=== PATIENT | male | born 1935 | race Caucasian/White ===

== ENCOUNTER 2016-03-25 14:25 | Emergency (ER) | payer MEDICARE, OTHER ==
[~2016-03-25] VITALS: Ht 170.2 cm; Wt 75.0 kg
[~2016-03-25 14:25] MED LIST: ADV25050 INHALATION; AMIO200T2 PO; BUDE6HFA INHALATION; CARV3.12 PO; FAMO20TA18 PO; FOLI-49 PO; FURO20TA PO; LACT10SO5 PO; LAMI150T23 PO; LANT3I SC; LEVO25TA53 PO; LUBI8CAP4 PO; SPIR100T31 PO; TAMS0.4C2 PO
[2016-03-25 14:32] VITALS: Ht 170.2 cm; Wt 75.0 kg
[2016-03-25] MEDS ORDERED: IPRATROPIUM (NEB) 0.5 MG/2.5 ML AMP NEB STA (15:34)
[2016-03-25] MEDS ORDERED: ALBUTEROL 0.5% (NEB) 2.5 MG/0.5 ML AMP NEB STA (15:34)
[2016-03-25 16:05] LABS: BASOPHILS % 0.9 % (0.0-2.0); EOSINOPHILS # 0.3 10^3/ul (0.0-0.5); EOSINOPHILS % 7.5 % (0.0-7.0); HEMATOCRIT 27.7 % (42.0-52.0); HEMOGLOBIN 9.6 g/dl (14.0-18.0); LYMPHOCYTES # 1.5 10^3/ul (0.8-2.9); LYMPHOCYTES % 41.8 % (15.0-51.0); MEAN CORPUSCULAR HEMOGLOBIN 36.9 pg (29.0-33.0); MEAN CORPUSCULAR HGB CONC 34.6 g/dl (32.0-37.0); MEAN CORPUSCULAR VOLUME 106.9 fl (82.0-101.0); MEAN PLATELET VOLUME 8.8 fl (7.4-10.4); MONOCYTE # 0.4 10^3/ul (0.3-0.9); MONOCYTES % 11.6 % (0.0-11.0); NEUTROPHIL # 1.3 10^3/ul (1.6-7.5); NEUTROPHILS % 38.2 % (39.0-77.0); PLATELET COUNT 68 10^3/UL (140-440); RED BLOOD COUNT 2.59 10^6/ul (4.70-6.10); RED CELL DISTRIBUTION WIDTH 16.8 % (11.5-14.5); UNCORRECTED WBC 3.5 10^3/ul (4.8-10.8); WHITE BLOOD COUNT 3.5 10^3/ul (4.8-10.8)
[2016-03-25 16:07] LABS: CONDITION 1; LH ANALYZER COMMENTS 1
[2016-03-25] MEDS ORDERED: LYRI100 PO (16:07)
[2016-03-25] MEDS ORDERED: HYDR-906 PO ×2 (16:09→16:11)
[2016-03-25] MEDS ORDERED: OXYC-279 PO (16:10)
[2016-03-25 16:14] LABS: INR 1.77; PROTIME 20.8 Sec (12.2-14.2); PT RATIO 1.6
[2016-03-25 16:15] LABS: PARTIAL THROMBOPLASTIN TIME 40.3 Sec (25.0-35.0)
--- NOTE | 2016-03-25 16:28 | ERD ---
ER Documentation Chief Complaint Date/Time DATE: 03/25/16 TIME: 16:21 Chief Complaint ABD DISTENTION WITH SOB ABD FLUID RETENTION HPI This is a 80-year-old male with hx of atrial fibrillation, Hep B, cirrhosis with ascites, CKD, GERD, type II DM, hypothyroidism who presents to the emergency room by a family member for abdominal distention. The patient was admitted to the hospital on February 12, 2016, roughly a month and a half ago which was his last paracentesis. He had been admitted at that time for hepatic encephalopathy. The patient today states he has had no changes in his mental status, denies a headache and he also denies abdominal pain. He just states that it is difficult for him to breathe due to the abdominal distention. His ascites is due to hepatitis B. He had no fevers no shaking or chills. He denies any hemoptysis hematemesis or melanotic stools. The patient indicates he is experiencing mild shortness of breath and dyspnea which he states as a result of his abdominal distention as this is similar in nature to his previous episodes of ascites that requires a paracentesis. He denies any recent travel or prolonged immobilization and he has no swelling of his lower extremities ROS All systems reviewed and are negative except as per history of present illness. Medications Home Meds Reported Medications Hydrocodone/Acetaminophen ([place] 5-325 Tablet) 1 Each Tablet, 1 EACH PO DAILY Y for PRN, TAB 03/25/16 Pregabalin* (Lyrica*) 100 Mg Capsule, 100 MG PO TID, CAP 03/25/16 Insulin Glargine* (Lantus*) 100 Unit/Ml Soln, 0 SC QHS, #1 VIAL SLIDING SCALE 02/12/16 Lubiprostone* (Amitiza*) 8 Mcg Capsule, 8 MCG PO BID, #60 CAP 02/12/16 Furosemide* (Lasix*) 20 Mg Tablet, 20 MG PO DAILY, TAB 02/12/16 Levothyroxine Sodium* (Levothyroxine Sodium*) 25 Mcg Tablet, 25 MCG PO BEFORE BREAKFAST, #30 TAB 07/21/15 Tamsulosin Hcl* (Tamsulosin Hcl*) 0.4 Mg Cap.er.24h, 0.4 MG PO HS, CAP 07/21/15 Famotidine* (Famotidine*) 20 Mg Tablet, 20 MG PO DAILY, #30 TAB 07/21/15 Carvedilol* (Coreg*) 3.125 Mg Tablet, 3.125 MG PO BID, #60 TAB HOLD FOR SBP<110 HR<60 07/21/15 Salmeterol Xinaf/Fluticasone* (Advair*) 250-50 Diskus Inhaler, 1 INH INHALATION BID, #1 INHALER 07/21/15 Amiodarone Hcl* (Amiodarone Hcl*) 200 Mg Tablet, 200 MG PO DAILY, #30 TAB 06/27/15 Spironolactone* (Spironolactone*) 100 Mg Tablet, 100 MG PO DAILY, TAB 06/27/15 Lamivudine* (Epivir*) 150 Mg Tablet, 150 MG PO DAILY, TAB 02/24/15 Discontinued Reported Medications Oxycodone HCl/Acetaminophen (Percocet 5-325 mg Tablet) 1 Each Tablet, 1 EACH PO DAILY Y for PRN, TAB 03/25/16 Hydrocodone/Acetaminophen ([place] 5-325 Tablet) 1 Each Tablet, 1 EACH PO DAILY Y for PRN, TAB 03/25/16 Budesonide-Formoterol Fumarate* (Symbicort*) 160-4.5 Hfa.aer.ad, 2 PUFF INHALATION BID, #1 EACH 04/03/15 Discontinued Scripts Folic Acid* (Folic Acid*) 1 Mg Tablet, 1 MG PO DAILY for 30 Days, TAB Prov:UMU JEFFRIES MD 02/14/16 Lactulose* (Lactulose*) 10 Gm/15 Ml Solution, 10 GM PO Q8 for 7 Days, ML Prov:UMU JEFFRIES MD 02/14/16 Allergies Allergies: Coded Allergies: lorazepam (Verified Adverse Reaction, Intermediate, 03/25/16) PMhx/Soc History of Surgery: No Anesthesia Reaction: No Hx Neurological Disorder: Yes (CVA) Hx Respiratory Disorders: No Hx Cardiac Disorders: Yes (HTN) Hx Psychiatric Problems: No Hx Miscellaneous Medical Probl: Yes (,HEP B,LIVER CIRRHOSIS,CKD,GERD,DM,UTIs, ANEMIA,HYPOTHYROIDISM) Hx Alcohol Use: No Hx Substance Use: No Hx Tobacco Use: Yes Smoking Status: Current some day smoker Physical Exam Vitals Vital Signs Date Time Temp Pulse Resp B/P Pulse Ox O2 Delivery O2 Flow Rate FiO2 03/25/16 16:04 90 20 93 Nasal Cannula 1.0 22 03/25/16 16:00 Nasal Cannula 2.0 03/25/16 14:32 98.1 75 20 107/57 97 Physical Exam Constitutional:Well-developed. Well-nourished. HEENT:Normocephalic. Atraumatic.Pupils were equal round reactive to light. Moist mucous membranes.No tonsillar exudates. No sclera icterus Neck: No nuchal rigidity. No lymphadenopathy. No posterior cervical spine tenderness or step-offs. Respiratory: Not using accessory muscles of respiration.Lungs were clear to auscultation bilaterally. No rhonchi. No rales. No wheezing. Cardiovascular: Regular rate regular rhythm.No murmurs. No rubs were appreciated.S1, S2 normal. Distal pulses are palpable 2+ bilaterally. GI: Abdomen was soft. Nontender. Distended with tense ascites and positive fluid thrill. No pulsatile abdominal masses or bruits. No rebound. No guarding. Bowel sounds were present and normal. Muscle skeletal: Full range of motion of both the upper and lower extremities bilaterally.Normal muscle tone.No assymetrical calf tenderness or swelling. Skin: No petechia, no purpura. No lesions on the palms or the soles of the feet. No maculopapular rash. No jaundice NEURO: Patient was alert, awake, orientated x3.No facial droop. Gait observed and normal with no ataxia.Speech had regular rate and rhythm. No focal neurological deficits. Result Diagram: 03/25/16 1542 03/25/16 1542 Results 24 hrs Laboratory Tests Test 03/25/16 15:00 03/25/16 15:42 Ammonia 52umol/l Activated Partial Thromboplast Time 40.3Sec Alanine Aminotransferase (ALT/SGPT) 30IU/L Albumin 2.2g/dl Albumin/Globulin Ratio 0.44 Alkaline Phosphatase 182IU/L Amylase Level 98U/L Anion Gap 10 Aspartate Amino Transf (AST/SGOT) 69IU/L Basophils # 0.010^3/ul Basophils % 0.9% Blood Morphology Comment Blood Urea Nitrogen 23mg/dl Calcium Level 9.6mg/dl Carbon Dioxide Level 26mmol/L Chloride Level 107mmol/L Creatinine 1.44mg/dl Direct Bilirubin 0.00mg/dl Eosinophils # 0.310^3/ul Eosinophils % 7.5% Globulin 5.00g/dl Glucose Level 140mg/dl Hematocrit 27.7% Hemoglobin 9.6g/dl INR International Normalized Ratio 1.77 Indirect Bilirubin 0.8mg/dl Lipase 143U/L Lymphocytes # 1.510^3/ul Lymphocytes % 41.8% Mean Corpuscular Hemoglobin 36.9pg Mean Corpuscular Hemoglobin Concent 34.6g/dl Mean Corpuscular Volume 106.9fl Mean Platelet Volume 8.8fl Monocytes # 0.410^3/ul Monocytes % 11.6% Neutrophils # 1.310^3/ul Neutrophils % 38.2% Nucleated Red Blood Cells # 0.010^3/ul Nucleated Red Blood Cells % 0.0/100WBC Platelet Count 6810^3/UL Potassium Level 3.4mmol/L Prothrombin Time 20.8Sec Prothrombin Time Ratio 1.6 Red Blood Count 2.5910^6/ul Red Cell Distribution Width 16.8% Sodium Level 140mmol/L Total Bilirubin 0.8mg/dl Total Protein 7.2g/dl White Blood Count 3.510^3/ul Current Medications Medications (Trade) Dose Ordered Sig/Chasity Route PRN Reason Start Time Stop Time Status Last Admin Dose Admin Albuterol (Proventil 0.5% (Neb)) 5 mg ONCE STAT NEB 03/25/16 15:34 03/25/16 15:36 DC 03/25/16 16:03 Ipratropium [place] (Atrovent 0.02% (Neb)) 0.5 mg ONCE STAT NEB 03/25/16 15:34 03/25/16 15:36 DC 03/25/16 16:03 Lidocaine (Xylocaine 1% (Mpf)) 5 ml STK-MED ONCE .ROUTE 03/25/16 17:24 03/25/16 17:25 DC Lactulose (Enulose) 20 gm ONCE ONCE PO 03/25/16 18:30 03/25/16 18:31 Procedures/MDM This patient presented to the emergency department with abdominal distension and was seen and evaluated by myself. My differential diagnosis included but was not limited to abdominal aortic aneurysm, appendicitis, pancreatitis, perforated peptic ulcer, perforated viscus, Boerhaaves syndrome or visceral pain such as diverticulitis, DKA, esophagitis, hepatitis or bowel obstruction. The patient was placed on a phlebotomy specialist, continuous pulse oximetry, and IV access was established by nursing staff. Ultrasound guided paracentesis was performed by the radiologist and indicated the following: Ultrasound-guided paracentesis yielding 37 50 cc of clear yellow fluid. The patient was anemic with a history of thrombocytopenia and had mild elevation of his ammonia level. However the patient did not appear to be altered in any state to indicate hepatic encephalopathy. He did receive oral lactulose. The patient was discharged home in fair condition. They were instructed to return to the emergency department at any time if there was any worsening of their condition. The patient stated they would follow up with their PCP in the next 24-48 hours to initiate a suitable medication regimen under the care of their PCP as well as to allow their PCP to monitor any drug reactions. The patient was discharged home with prescriptions after they gave informed consent to the new medication. They were also fully informed by myself on the adverse effects and adverse drug interactions in order to provide adequate safeguards to prevent possible adverse reactions to medications. Departure Diagnosis: Primary Impression: Ascites Additional Impression: Thrombocytopenia Condition: Serious MARLEY RIVERA Mar 25, 2016 16:28
[2016-03-25 16:42] LABS: ALBUMIN 2.2 g/dl (3.3-4.9)
[2016-03-25 16:43] LABS: POTASSIUM 3.4 mmol/L (3.5-5.1)
[2016-03-25 16:45] LABS: ALBUMIN/GLOBULIN RATIO 0.44; BILIRUBIN,INDIRECT 0.8 mg/dl (0-1.1); BILIRUBIN,TOTAL 0.8 mg/dl (0.2-1.3); CREATININE 1.44 mg/dl (0.61-1.24); TOTAL PROTEIN 7.2 g/dl (6.1-8.1)
[2016-03-25 16:46] LABS: CALCIUM 9.6 mg/dl (8.4-10.2)
[2016-03-25] MEDS ORDERED: LIDOCAINE 1% (MPF) 5 ML VIAL ONE (17:24)
--- NOTE | 2016-03-25 17:53 | RADRPT ---
PROCEDURE: US guided paracentesis. CLINICAL INDICATION: Distension TECHNIQUE: Multiple real-time images were acquired of the patient's abdomen and retroperitoneum ut ilizing a high resolution transducer. COMPARISON: None FINDINGS: Noted is a [id number] volume of ascites. After informed consent, Time out was performed. The skin in the right lower quadrant was marked and prepped and draped in usual sterile fashion. Following local injection of Xylocaine, a 10-Luxembourger c atheter was introduced into the peritoneal cavity using trocar technique. Approximately 37 50 cc of clear yellow fluid was collected. The catheter was removed. The patient tolerated the procedure well. IMPRESSION: Ultrasound-guided paracentesis yielding 37 50 cc of clear yellow fluid. .Herbie Tyler MD, MD Date Time Electronically viewed and signed by .Herbie Tyler MD, on 03/25/2016 17:53 .A/
[2016-03-25] MEDS ORDERED: LACTULOSE 30ML CUP PO ONE (18:30)
[2016-03-25 20:38] VITALS: BP 118/70; PULSE 78; RESP 18; TEMP 98.4
== END 2016-03-25 20:39 | disposition home or self-care (01) ==
LOC: E/R 14:25
DX: R18.8 Other ascites (principal); E11.9 Type 2 diabetes mellitus without complications; E03.9 Hypothyroidism, unspecified; I12.9 Hypertensive chronic kidney disease with stage 1 through stage 4 chronic kidney disease, or unspecified chronic kidney disease; N18.9 Chronic kidney disease, unspecified; F17.210 Nicotine dependence, cigarettes, uncomplicated; D69.6 Thrombocytopenia, unspecified; R06.02 Shortness of breath; Z79.4 Long term (current) use of insulin
CPT/HCPCS: 80053; 82140; 82150; 83690; 85025; 85610; 85730; 94664

== ENCOUNTER 2016-05-22 09:46 | Inpatient (IN) | payer MEDICARE, OTHER ==
[~2016-05-22] VITALS: Ht 170.2 cm; Wt 100.6 kg
[~2016-05-22 09:46] MED LIST changes: -BUDE6HFA INHALATION; -FOLI-49 PO; +FURO-110 PO; -FURO20TA PO; +HYDR-906 PO; -LACT10SO5 PO; +LYRI100 PO
[2016-05-22 10:21] LABS: ADD SCAN DIFF NO
[2016-05-22 10:24] LABS: BASOPHILS % 0.5 % (0.0-2.0); EOSINOPHILS # 0.2 10^3/ul (0.0-0.5); EOSINOPHILS % 2.6 % (0.0-7.0); HEMATOCRIT 29.3 % (42.0-52.0); HEMOGLOBIN 9.8 g/dl (14.0-18.0); LYMPHOCYTES # 1.3 10^3/ul (0.8-2.9); LYMPHOCYTES % 22.6 % (15.0-51.0); MEAN CORPUSCULAR HEMOGLOBIN 35.4 pg (29.0-33.0); MEAN CORPUSCULAR HGB CONC 33.4 g/dl (32.0-37.0); MEAN CORPUSCULAR VOLUME 105.8 fl (82.0-101.0); MEAN PLATELET VOLUME 10.4 fl (7.4-10.4); MONOCYTE # 0.5 10^3/ul (0.3-0.9); MONOCYTES % 8.6 % (0.0-11.0); NEUTROPHIL # 3.7 10^3/ul (1.6-7.5); NEUTROPHILS % 64.8 % (39.0-77.0); PLATELET COUNT 118 10^3/UL (140-415); RED BLOOD COUNT 2.77 10^6/ul (4.70-6.10); RED CELL DISTRIBUTION WIDTH 19.3 % (11.5-14.5); WHITE BLOOD COUNT 5.7 10^3/ul (4.8-10.8)
[2016-05-22 10:36] LABS: ALBUMIN 2.7 g/dl (3.3-4.9); CHLORIDE 107 mmol/L (97-110)
[2016-05-22 10:37] LABS: POTASSIUM 4.4 mmol/L (3.5-5.1); SODIUM 140 mmol/L (135-144)
[2016-05-22 10:38] LABS: INR 1.55; PROTIME 18.7 Sec (12.2-14.2); PT RATIO 1.5
[2016-05-22 10:39] LABS: ALBUMIN/GLOBULIN RATIO 0.65; ANION GAP 19 (8-16); BILIRUBIN,INDIRECT 2.1 mg/dl (0-1.1); BILIRUBIN,TOTAL 2.1 mg/dl (0.2-1.3); CARBON DIOXIDE 18 mmol/L (21-31); CREATININE 2.75 mg/dl (0.61-1.24); PARTIAL THROMBOPLASTIN TIME 37.9 Sec (25.0-35.0); TOTAL PROTEIN 6.8 g/dl (6.1-8.1)
[2016-05-22 10:40] LABS: ALANINE AMINOTRANSFERASE 29 IU/L (13-69); ALKALINE PHOSPHATASE 103 IU/L (42-121); ASPARTATE AMINO TRANSFERASE 46 IU/L (15-46); BLOOD UREA NITROGEN 47 mg/dl (7-20); CALCIUM 9.3 mg/dl (8.4-10.2); GLUCOSE 130 mg/dl (70-220)
--- NOTE | 2016-05-22 10:47 | RADRPT ---
PROCEDURE: CT Brain without. CLINICAL INDICATION: Trauma, fall. Altered mental status TECHNIQUE: A CT of the brain was performed on multidetector high-resolution CT scanner utilizing a xial sections from the skull base through the vertex without contrast. The scan was reviewed in sof t tissue brain and high frequency resolution bone algorithm windows. Images were reviewed on a high -resolution PACS workstation. One or more the following does reduction techniques were utilized: Aut omated exposure control, adjustment of the mA/ or kV according to patient's size, or use of iterativ e reconstruction technique. The exam CTDI = 38.91 mGy and the DLP = 554.95 mGy-cm. COMPARISON: Brain CT 02/12/2016. FINDINGS: The ventricles and sulci are mildly to moderately prominent indicative of volume loss. There is no intracranial hemorrhage, mass effect or midline shift. No abnormal intra-axial or extra-axial fluid collections are seen. The malone/white matter differentiation is preserved. There are moderate scattered foci of hypoattenuation in the white matter, which are nonspecific in e tiology but likely reflect chronic small vessel ischemic changes. There are moderate intracranial v ascular calcifications consistent with atherosclerosis. The visualized paranasal sinuses are essenti ally clear. IMPRESSION: 1. No acute intracranial hemorrhage, transcortical infarction or mass effect. 2. Moderate intracranial atherosclerosis and chronic small vessel ischemic changes. 3. Mild to moderate generalized cerebral volume loss. RPTAT: AA .Evan Abel MD, MD Date Time Electronically viewed and signed by .Evan Abel MD, MD on 05/22/2016 10:46 .N/
--- NOTE | 2016-05-22 10:52 | RADRPT ---
PROCEDURE: XR Chest AP portable CLINICAL INDICATION: Sepsis TECHNIQUE: An AP portable radiograph of the chest was submitted. COMPARISON: 02/12/2016 FINDINGS: Support Hardware: None Cardiovascular: The cardiovascular silhouette appears unremarkable except for persistent atheroscler otic change of the aorta. Lung Graham: A suboptimal inspiration compresses lung parenchyma and foci of subsegmental atelectasi s are again seen at the lung bases. Skin folds project through the lateral left upper lung zone. Pleural Spaces: No pneumothorax or pleural effusion is identified. Osseous Structures: The osseous elements appear rarefied. Soft Tissues: The soft tissues appear unremarkable. IMPRESSION: 1. Suboptimal inspiration with foci of subsegmental atelectasis again seen at the lung bases. 2. Atherosclerotic aorta without CHF 3. Osteoporosis. Physician Edward Date Time Electronically viewed and signed by Physician Edward on 05/22/2016 10:52 /
[2016-05-22] MEDS ORDERED: CEFTRIAXONE 1 GM/50 ML (PMX) 50 ML IVPB ONE (11:00)
[2016-05-22] MEDS ORDERED: HYDR-906 PO (11:02)
[2016-05-22 11:03] LABS: TROPONIN-I < 0.012 ng/ml (0.00-0.12)
[2016-05-22] MEDS ORDERED: FURO40TA4 PO (11:03)
[2016-05-22] MEDS ORDERED: POTA8CAP PO (11:04)
--- NOTE | 2016-05-22 11:47 | ERA ---
ER Documentation Chief Complaint Date/Time DATE: 05/22/16 TIME: 0950 Chief Complaint aloc per family since this am. last seen normal last night. fall last night HPI 80-year-old male presents by ambulance to the emergency department for altered level of consciousness. According to the paramedics, patient was in his normal state of health until recently at which time he became more altered than usual. It is unclear what his baseline is but apparently per the paramedics the patient has been generally weak and has had a fall yesterday. No further history is available. I have reviewed the senior materials analyst pre-hospital care. Pre-hospital vital signs were reviewed. Pre-hospital diagnostic tests were reviewed. Upon arrival, patient is encephalopathic and not able to provide history. ROS All systems reviewed and are negative except as per history of present illness. Medications Home Meds Reported Medications Potassium Chloride* (Potassium Chloride*) 8 Meq Capsule.er, 8 MEQ PO BID, CAP 05/22/16 Furosemide* (Furosemide*) 40 Mg Tablet, 40 MG PO BID, TAB 05/22/16 Hydrocodone/Acetaminophen ([place] 5-325 Tablet) 1 Each Tablet, 1 EACH PO Q4 Y for PAIN, TAB 05/22/16 Pregabalin* (Lyrica*) 100 Mg Capsule, 100 MG PO TID, CAP 03/25/16 Insulin Glargine* (Lantus*) 100 Unit/Ml Soln, 0 SC QHS, #1 VIAL SLIDING SCALE 02/12/16 Lubiprostone* (Amitiza*) 8 Mcg Capsule, 8 MCG PO BID, #60 CAP 02/12/16 Levothyroxine Sodium* (Levothyroxine Sodium*) 25 Mcg Tablet, 25 MCG PO BEFORE BREAKFAST, #30 TAB 07/21/15 Tamsulosin Hcl* (Tamsulosin Hcl*) 0.4 Mg Cap.er.24h, 0.4 MG PO HS, CAP 07/21/15 Famotidine* (Famotidine*) 20 Mg Tablet, 20 MG PO DAILY, #30 TAB 07/21/15 Carvedilol* (Coreg*) 3.125 Mg Tablet, 3.125 MG PO BID, #60 TAB HOLD FOR SBP<110 HR<60 07/21/15 Salmeterol Xinaf/Fluticasone* (Advair*) 250-50 Diskus Inhaler, 1 INH INHALATION BID, #1 INHALER 07/21/15 Amiodarone Hcl* (Amiodarone Hcl*) 200 Mg Tablet, 200 MG PO DAILY, #30 TAB 06/27/15 Spironolactone* (Spironolactone*) 100 Mg Tablet, 100 MG PO DAILY, TAB 06/27/15 Lamivudine* (Epivir*) 150 Mg Tablet, 150 MG PO DAILY, TAB 02/24/15 Discontinued Reported Medications Hydrocodone/Acetaminophen ([place] 5-325 Tablet) 1 Each Tablet, 1 EACH PO DAILY Y for PRN, TAB 03/25/16 Furosemide* (Lasix*) 20 Mg Tablet, 20 MG PO DAILY, TAB 02/12/16 Allergies Allergies: Coded Allergies: lorazepam (Verified Adverse Reaction, Intermediate, 05/22/16) PMhx/Soc History of Surgery: No Anesthesia Reaction: No Hx Neurological Disorder: Yes (CVA) Hx Respiratory Disorders: No Hx Cardiac Disorders: Yes (HTN) Hx Psychiatric Problems: No Hx Miscellaneous Medical Probl: Yes (,HEP B,LIVER CIRRHOSIS,CKD,GERD,DM,UTIs, ANEMIA,HYPOTHYROIDISM) Hx Alcohol Use: No Hx Substance Use: No Hx Tobacco Use: Yes FmHx Noncontributory for chief complaint Physical Exam Vitals Vital Signs Date Time Temp Pulse Resp B/P Pulse Ox O2 Delivery O2 Flow Rate FiO2 05/22/16 09:57 98.6 87 20 134/74 100 Physical Exam GENERAL: Patient is a frail elderly encephalopathic male HEENT: Pupils equal, round, and reactive to light. EOMI. There is no scleral icterus. No obvious head trauma noted NECK: C-spine is soft and supple, there is no meningismus. There is no cervical lymphadenopathy. LUNGS: Clear to auscultation bilaterally. There are no rales, wheezes or rhonchi. HEART: Regular rate and rhythm, no murmurs, clicks, rubs or gallops. ABDOMEN: Soft and distended with an obvious fluid shift. No tenderness to palpation or obvious peritonitis. No rebound or guarding. EXTREMITIES: 1+ edema bilaterally with no cyanosis or clubbing NEURO: Patient follows simple commands only with no significant insight. He is in obvious encephalopathy. His pupils are midrange, equal round and reactive to light. Face is symmetric. Gag reflex is maintained. Motor strength is diminished but nonfocal in all 4 extremities. SKIN: There is no apparent rash or petechiae. HEME/LYMPHATIC: There is no evidence of excessive bruising or lymphedema. PSYCHIATRIC: The patient does not appear anxious or depressed. Patient does appear to be encephalopathic. Result Diagram: 05/22/16 1000 05/22/16 1000 Results 24 hrs Laboratory Tests Test 05/22/16 10:00 Activated Partial Thromboplast Time 37.9Sec Alanine Aminotransferase (ALT/SGPT) 29IU/L Albumin 2.7g/dl Albumin/Globulin Ratio 0.65 Alkaline Phosphatase 103IU/L Anion Gap 19 Aspartate Amino Transf (AST/SGOT) 46IU/L Basophils # 0.010^3/ul Basophils % 0.5% Blood Urea Nitrogen 47mg/dl Calcium Level 9.3mg/dl Carbon Dioxide Level 18mmol/L Chloride Level 107mmol/L Creatinine 2.75mg/dl Direct Bilirubin 0.00mg/dl Eosinophils # 0.210^3/ul Eosinophils % 2.6% Globulin 4.10g/dl Glucose Level 130mg/dl Hematocrit 29.3% Hemoglobin 9.8g/dl INR International Normalized Ratio 1.55 Indirect Bilirubin 2.1mg/dl Lactic Acid Level 3.7mmol/L Lymphocytes # 1.310^3/ul Lymphocytes % 22.6% Mean Corpuscular Hemoglobin 35.4pg Mean Corpuscular Hemoglobin Concent 33.4g/dl Mean Corpuscular Volume 105.8fl Mean Platelet Volume 10.4fl Monocytes # 0.510^3/ul Monocytes % 8.6% Neutrophils # 3.710^3/ul Neutrophils % 64.8% Nucleated Red Blood Cells # 0.010^3/ul Nucleated Red Blood Cells % 0.0/100WBC Platelet Count 37472^3/UL Potassium Level 4.4mmol/L Prothrombin Time 18.7Sec Prothrombin Time Ratio 1.5 Red Blood Count 2.7710^6/ul Red Cell Distribution Width 19.3% Sodium Level 140mmol/L Total Bilirubin 2.1mg/dl Total Protein 6.8g/dl Troponin I < 0.012ng/ml White Blood Count 5.710^3/ul Current Medications Medications (Trade) Dose Ordered Sig/Chasity Route PRN Reason Start Time Stop Time Status Last Admin Dose Admin Ceftriaxone Sodium (Rocephin) 50 ml @ 100 mls/hr ONCE ONCE IVPB 05/22/16 11:00 05/22/16 11:29 DC Procedures/MDM Patient was taken to a room, seen and evaluated. Comfort measures were initiated. Diagnostic tests were ordered and reviewed. 3 LEAD RHYTHM STRIP: Normal sinus rhythm without ectopy 12 lead EKG interpreted by myself: Rate/rhythm: Normal sinus rhythm [place]/intervals: Left axis deviation, right bundle branch block Ischemia: Nonspecific ST and T-wave changes with no ST elevation Impression: Nonspecific EKG RADIOLOGY: reviewed with the radiologist CONSULTATION: hospitalist was notified for admission REEVALUATION: Patient has remained hemodynamically stable. MEDICAL DECISION MAKIN-year-old male with a history of cirrhosis presents to the emergency department and altered mental status. Differential diagnosis entertained was broad and potential high acuity but focused on neurologic, infectious and other causes of his altered mental status. CT scan is ruled out trauma to the brain and the patient has no focal findings concerning for stroke. Patient's ammonia level has been ordered and is pending. Patient has an elevated lactate but is otherwise afebrile with otherwise normal vital signs. I have covered with antibiotics pending paracentesis to rule out SBP and pending urinalysis to rule out urinary tract infection. At this time, patient does not appear to be necessarily septic and I am withholding fluids given the fluid overload that is seen on his significant ascites. Patient will require admission to the hospital for observation, antibiotics and further diagnostic treatment and care. Departure Diagnosis: Primary Impression: Cirrhosis Additional Impressions: Encephalopathy Renal failure Condition: ZOE Porter May 22, 2016 11:46
[2016-05-22 12:24] LABS: ADD UMIC NO; URINE BILIRUBIN (Dip) NEGATIVE (NEGATIVE); URINE BLOOD (Dip) NEGATIVE (NEGATIVE); URINE COLOR YELLOW (YELLOW); URINE GLUCOSE (Dip) NEGATIVE (NEGATIVE); URINE KETONES (Dip) TRACE (NEGATIVE); URINE LEUKOCYTE ESTERASE (Dip) NEGATIVE (NEGATIVE); URINE NITRITE (Dip) NEGATIVE (NEGATIVE); URINE TOTAL PROTEIN (Dip) NEGATIVE (NEGATIVE); URINE UROBILINOGEN (Dip) 0.2 E.U./dL (0.1-1.0)
[2016-05-22] MEDS ORDERED: LACTULOSE 30ML CUP PO ONE (13:00)
[2016-05-22 13:01] VITALS: BP 150/65; PULSE 80; RESP 16
[2016-05-22 13:11] VITALS: Ht 170.2 cm; Wt 100.6 kg
[2016-05-22] MEDS ORDERED: MAGNESIUM HYDROXIDE 30ML CUP PO PRN (13:30)
[2016-05-22] MEDS ORDERED: BISACODYL (EC) 5 MG TAB PO PRN (13:30)
[2016-05-22] MEDS ORDERED: NACL 0.9% 3 ML SYG IV SCH (13:30)
[2016-05-22] MEDS ORDERED: HYDROCODONE/APAP (5/325) TAB PO PRN (13:30)
[2016-05-22] MEDS ORDERED: hydrALAzine 20 MG INJ IV PRN (14:00)
[2016-05-22] MEDS: LACTULOSE ENEMA 1,000 ML BTL PR SCH (16:26)
--- NOTE | 2016-05-22 16:44 | HP ---
DATE OF ADMISSION: 05/22/2016 TIME OF EVALUATION: 1330. REASON FOR ADMISSION: Altered level of consciousness. Consultants 1. 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 As per the patient's family, the patient's daughter found the patient on the floor with face down. The patient was having confused speech and was confused. Hence, the paramedics called the EMS. The patient was brought to the emergency room. The patient underwent a CT scan of the brain that was negative for any acute intracranial findings. The patient had lactic acidosis. The patient was also noticed to have hyperammonemia. The patient was afebrile. The patient was noticed to have significant ascites. The patient's chest x-ray showed suboptimal inspiration with subsegmental atelectasis at the lung bases. The patient had anemia with a hemoglobin and hematocrit of 9.8 and 29.3 respectively. The patient had INR of 1.55. In the emergency room, the patient was treated with a single dose of IV antibiotics. PAST MEDICAL HISTORY: Atrial fibrillation, chronic kidney disease, thrombocytopenia, hepatitis B, hypothyroidism, type 2 diabetes mellitus. PAST SURGICAL HISTORY: Bilateral lower extremity surgery secondary to an accident. HOME MEDICATIONS: 1. Lamivudine 150 mg p.o. daily. 2. Tamsulosin 0.4 mg p.o. at bedtime. 3. Amiodarone 200 mg p.o. daily. 4. Coreg 3.125 mg p.o. b.i.d. 5. Aldactone 100 mg p.o. daily. 6. [place] 5/325 one tablet p.o. q.4 hours p.r.n. pain. 7. Lyrica 100 mg p.o. t.i.d. 8. Lasix 40 mg p.o. b.i.d. 9. Potassium chloride 8 mEq p.o. b.i.d. 10. Advair Diskus 250/50 one inhalation b.i.d. 11. Famotidine 20 mg p.o. daily. 12. Amitiza 8 mcg p.o. b.i.d. 13. Lantus insulin subcutaneously at bedtime. 14. Synthroid 25 mcg p.o. before breakfast. ALLERGIES: NO KNOWN DRUG ALLERGIES. SOCIAL HISTORY: No history of tobacco, alcohol or illicit drug use. The patient lives at home by himself. REVIEW OF SYSTEMS: Unable to do a review of systems because of the patient's current mental status. PHYSICAL EXAMINATION: VITAL SIGNS: Temperature 97.4, pulse rate 80, respiratory rate 16, blood pressure 150/65, oxygen saturation 100% on 2 liters oxygen via nasal cannula. GENERAL: This is an elderly 80-year-old male patient lying in bed in no apparent distress. HEENT: Head normocephalic and atraumatic. Eyes: Anicteric sclerae. Conjunctivae clear. ENT: Nasal septum is midline. Oral mucosa is dry. NECK: Supple. No JVD noticed. RESPIRATORY: Bilateral diminished breath sounds. No adventitious breath sounds heard. No use of accessory muscles of respiration. CARDIAC: Regular rate and rhythm. No obvious murmurs heard. ABDOMEN: Distended. Ascites. Bowel sounds hypoactive in all 4 quadrants. GENITOURINARY: Deferred. EXTREMITIES: No cyanosis, no clubbing. Trace bilateral pedal edema. Peripheral pulses palpable. NEUROLOGIC: The patient is lethargic. Opens his eyes. Tracks movements. Does not follow any commands. Moves all 4 extremities. LABORATORY AND DIAGNOSTIC DATA: WBC 5.7, hemoglobin 9.8, hematocrit 29.3, platelet count 118. Sodium 140, potassium 4.4, chloride 107, carbon dioxide 18 , anion gap 19, BUN 47, creatinine 2.75, glucose 130, lactic acid 3.7, calcium 9.3, total bilirubin 2.1, indirect bilirubin 2.1, AST 46, ALT 29, alkaline phosphatase 103. Troponin I less than 0.012. Ammonia 113. Total protein 6.8, albumin 2.7. PT 18.7, INR 1.55, APTT 37.9. Urinalysis: Urine nitrite negative, urine leukocyte esterase negative. IMPRESSION: This is a 80-year-old male with multiple comorbidities and known history of cirrhosis secondary to hepatitis B infection, who came to the emergency room with altered level of consciousness, was found to have hepatic encephalopathy and will be admitted here for further treatment and evaluation. ASSESSMENT AND PLAN: 1. Acute encephalopathy, most probably secondary hepatic encephalopathy. The patient will be started on lactulose. However, the patient will be given lactulose enema since the patient is not completely awake and alert. The patient's brain CT scan was negative for any acute intracranial findings. However, the patient's neuro status will be monitored closely since the patient has history of atrial fibrillation. 2. Chronic kidney disease. The patient has history of underlying chronic kidney disease. The patient's BUN and creatinine will be monitored closely. The patient's renal function will be monitored closely. Nephrotoxic drugs will be used with caution. 3. History of atrial fibrillation. The patient's current EKG is showing slight right bundle branch block with a left anterior fascicular block. We will monitor the patient on telemetry floor. We will continue the patient's amiodarone. We will involve cardiology on the case. 4. Lactic acidosis. Etiology unclear, most probably noninfectious in origin. The patient remains afebrile. The patient was given a single dose of IV ceftriaxone in the emergency room. The patient will be maintained on ceftriaxone. Ascites fluid culture will be obtained. 5. Ascites. A paracentesis will be ordered on this patient. Fluid studies will be sent for studies, including fluid culture. 6. Hyperammonemia The patient will be continued on lactulose. The patient's mental status will be monitored closely. 7. Hypothyroidism. The patient's Synthroid will be resumed. 8. Macrocytic anemia, most probably anemia secondary to underlying liver cirrhosis. The patient's hemoglobin and hematocrit will be monitored closely. The patient will be transfused as needed. 9. Coagulopathy, most probably secondary to underlying liver cirrhosis. The patient will be monitored closely for any bleeding. Plan. The patient will be admitted to inpatient telemetry floor. The patient will be kept n.p.o. except for medications. The patient will be made a DNR/DNI as per the family's request. Activities will be bed rest with bathroom privileges. The patient will be started on DVT prophylaxis and gastrointestinal prophylaxis; however, chemical DVT prophylaxis will be avoided because of underlying liver cirrhosis. The rest of the patient's management will be based on the patient's clinical course and the results of diagnostic studies. Based on the patient's clinical presentation, he most probably requires at least a 2 midnights' stay for further management and evaluation of his clinical presentation. The case and management of this patient was fully discussed with Dr. Calabrese. Approximately 55 minutes was spent on the history and physical of this patient. KATYA CALABRESE MD, AM/WAN Conf#: [id number] DID#: [id number] CC: ARLETTE MERIDA MD;*EndCC* MTDD
[2016-05-22 17:00] VITALS: BP 133/61; PULSE 83; RESP 18
[2016-05-22] MEDS ORDERED: DEXTROSE 50% 50 ML SYRINGE IV PRN ×2 (17:00)
[2016-05-22] MEDS ORDERED: GLUCOSE GEL 15 GRAM TUBE PO PRN ×2 (17:00)
[2016-05-22] MEDS ORDERED: GLUCOSE GEL 15 GRAM TUBE BUCCAL PRN (17:00)
[2016-05-22] MEDS: INSULIN ASPART [NOVOLOG] 3 ML PEN SC SCH ×2 (17:00→23:00)
[2016-05-22] MEDS ORDERED: GLUCAGON 1 MG INJ IM PRN (17:00)
--- NOTE | 2016-05-22 17:33 | CONS ---
DATE OF ADMISSION: 05/22/2016 DATE OF CONSULTATION: 05/22/2016 TYPE OF CONSULTATION: Cardiology. REFERRING PHYSICIAN: TOÑITO CALABRESE MD REASON FOR CONSULTATION: Arrhythmia. CHIEF COMPLAINT: Encephalopathy. HISTORY OF PRESENT ILLNESS: Thank you for this gentleman's referral. History is from review of [facility] chart, discussion with physician and staff. This is an unfortunate 80-year-old French gentleman who was brought in by family because of altered level of consciousness since last night. The patie nt is unable to give any history. Has a history of atrial fibrillation. Heart rate was reported an d has come down to 50s; however, currently has improved. Patient has been transferred to telemetry and I was kindly asked to evaluate for his arrhythmias. Patient again unable to report any history to me. PAST MEDICAL HISTORY: The best I could obtain, history of hypertension, history of hypothyroidism a nd history of atrial fibrillation. History of possibly cirrhosis. ALLERGIES: REPORTED TO [facility]. MEDICATIONS: Prior to admission, he has been on: 1. Lasix. 2. Furosemide. 3. Hydrocodone. 4. Acetaminophen. 5. Lyrica. 6. Insulin. 7. Levothyroxine. 8. Tamsulosin. 9. Coreg 3.125. 10. Advair. 11. Amiodarone. 12. Aldactone. 13. Lasix. FAMILY HISTORY: No reported early coronary artery disease. ALLERGIES: NO REPORTED ALLERGIES. SOCIAL HISTORY: The patient has been a smoker. He is unclear if he has used alcohol or not. REVIEW OF SYSTEMS: Unable to obtain except for above-mentioned. PHYSICAL EXAMINATION: VITAL SIGNS: Temperature 97.4, heart rate of 80, blood pressure 150/65, respiration rate of 18, sat urating 100%. HEENT: Normocephalic, atraumatic. Pupils are equal. CARDIOVASCULAR: Regular rate and rhythm, systolic murmur. PULMONARY: With no wheezes anteriorly. GASTROINTESTINAL: Soft, nontender. EXTREMITIES: Trivial edema. NEUROLOGIC: Opens his eyes, does not answer my questions. PSYCHIATRIC: Appears to be confused. LABORATORY: Sodium 140, potassium 4.4, BUN of 47, creatinine 2.74, glucose 130. Lactic acid was 3. 7, down to 2.6. Ammonia elevated at 113. Albumin is 2.7. Total bilirubin is 2.1, AST of 46. WBC of 5.7, hemoglobin 9.8, platelets of 118. EKG was personally shows probably junctional rhythm with right bundle branch block. Head CT shows no acute bleed. Moderate intracranial atherosclerosis and chronic small vessel changes, small to moderate generalized cerebellar volume loss. Chest x-ray sh ows ____inspiration. ASSESSMENT AND PLAN: 1. History of paroxysmal atrial fibrillation. 2. Severe encephalopathy, probably secondary to marked elevated ammonia level. 3. Renal failure. 4. History of cirrhosis, history of hepatitis B. 5. History of essential hypertension. 6. Renal failure, acute on chronic. 7. History of thyroid disorder. 8. Diabetes. RECOMMENDATIONS: We will continue with the current cardiac care for now. No anticoagulation due to concern about the fall, bleeding, thrombocytopenia and anemia. I will order an echocardiogram, thy roid function test as well. Digoxin level will be checked as well to rule out atrial fibrillation a lthough with no evidence of his medication. Patient will be placed on radiation monitor. Thank you for this referral. We will continue to follow along with you. Dictated By: ENID TAYLOR MD AV/WAN Conf#: [id number] DID#: [id number] CC: TOÑITO CALABRESE MD;*EndCC*
[2016-05-22 17:50] VITALS: PULSE 81
[2016-05-22] MEDS: FUROSEMIDE 20 MG INJ IV SCH (18:00)
[2016-05-22] MEDS ORDERED: FUROSEMIDE 40 MG INJ IV SCH (18:00)
[2016-05-22] MEDS: DEXTROSE 5%-0.9% NACL 1,000 ML IV SCH (18:05)
[2016-05-22 19:00] VITALS: BP 131/60; RESP 17
[2016-05-22 20:20] VITALS: PULSE 76
[2016-05-22] MEDS: TAMSULOSIN (SR) 0.4 MG CAP PO SCH (22:02)
[2016-05-22] MEDS: PREGABALIN 25 MG CAP PO SCH (22:02)
[2016-05-23] VITALS (10 sets, daily range): BP systolic 81–128; BP diastolic 48–60; PULSE 55–66; RESP 16–59
[2016-05-23] MEDS: LUBIPROSTONE 8 MCG CAPSULE PO SCH ×3 (01:14→22:32)
[2016-05-23] MEDS: LACTULOSE ENEMA 1,000 ML BTL PR SCH ×4 (01:14→22:34)
[2016-05-23] MEDS: SALMETEROL/FLUTICASONE 250/50 INHA INH SCH ×3 (01:14→22:31)
[2016-05-23] MEDS: INSULIN ASPART [NOVOLOG] 3 ML PEN SC SCH ×4 (05:00→22:37)
[2016-05-23] MEDS: PANTOPRAZOLE 40 MG INJ IV SCH (06:00)
[2016-05-23] MEDS: FUROSEMIDE 20 MG INJ IV SCH (06:00)
[2016-05-23] MEDS: LEVOTHYROXINE 25 MCG TAB PO SCH (07:00)
[2016-05-23 07:07] LABS: ADD SCAN DIFF NO
[2016-05-23 07:16] LABS: ABNORMAL IP MESSAGE 1; BASOPHILS % 0.4 % (0.0-2.0); EOSINOPHILS # 0.2 10^3/ul (0.0-0.5); EOSINOPHILS % 4.5 % (0.0-7.0); HEMATOCRIT 22.4 % (42.0-52.0); HEMOGLOBIN 7.6 g/dl (14.0-18.0); LYMPHOCYTES # 1.8 10^3/ul (0.8-2.9); LYMPHOCYTES % 37.8 % (15.0-51.0); MEAN CORPUSCULAR HEMOGLOBIN 35.8 pg (29.0-33.0); MEAN CORPUSCULAR HGB CONC 33.9 g/dl (32.0-37.0); MEAN CORPUSCULAR VOLUME 105.7 fl (82.0-101.0); MONOCYTE # 0.5 10^3/ul (0.3-0.9); MONOCYTES % 10.1 % (0.0-11.0); NEUTROPHIL # 2.2 10^3/ul (1.6-7.5); NEUTROPHILS % 46.8 % (39.0-77.0); PLATELET COUNT 62 10^3/UL (140-415); RED BLOOD COUNT 2.12 10^6/ul (4.70-6.10); RED CELL DISTRIBUTION WIDTH 20.1 % (11.5-14.5); WHITE BLOOD COUNT 4.7 10^3/ul (4.8-10.8)
[2016-05-23 07:30] LABS: INR 2.04; PARTIAL THROMBOPLASTIN TIME 42.2 Sec (25.0-35.0); PROTIME 23.2 Sec (12.2-14.2); PT RATIO 1.8
[2016-05-23 07:39] LABS: TROPONIN-I 0.02 ng/ml (0.00-0.12)
[2016-05-23 07:41] LABS: CK-MB 1.96 ng/ml (0.0-2.4)
[2016-05-23 07:48] LABS: ALBUMIN 1.9 g/dl (3.3-4.9)
[2016-05-23 07:50] LABS: CREATININE 2.95 mg/dl (0.61-1.24); MAGNESIUM 2.6 mg/dl (1.7-2.5); PHOSPHORUS 4.1 mg/dl (2.5-4.9)
[2016-05-23 07:51] LABS: ALBUMIN/GLOBULIN RATIO 0.57; CALCIUM 8.6 mg/dl (8.4-10.2); TOTAL PROTEIN 5.2 g/dl (6.1-8.1)
[2016-05-23] MEDS: PREGABALIN 25 MG CAP PO SCH ×3 (09:00→22:33)
[2016-05-23] MEDS: LAMIVUDINE 150 MG TAB PO SCH (09:00)
[2016-05-23] MEDS ORDERED: SPIRONOLACTONE 50 MG TAB PO SCH (09:00)
[2016-05-23] MEDS ORDERED: AMIODARONE 200 MG TAB PO SCH (09:00)
--- NOTE | 2016-05-23 09:05 | RADRPT ---
Echocardiogram Report Patient Name: FRANKIE ANTUNEZ Gender: Male Date: 1935 Study Date: 23-May-2016 Etcher Aircraft: Saran Patel [facility] Location: 5557 Ref. Physician: ENID ANDERSEN Quality: Limited Procedures: Transthoracic echocardiogram with complete 2D, M-Mode, and doppler examination. Indications: Atrial Fibrillation. 2D/M Mode Doppler Measurement Value Normal Ranges Measurement Value Normal Ranges LVIDd 2D 4.9 3.5 - 5.6 cm AV Peak Catarino 1.1 m/sec LVIDs 2D 2.2 2.1 - 4.1 cm AV Peak PG 4.6 mmHg LVPWd 2D 1.3 0.6 - 1.1 cm LVOT Peak Catarino 0.8 m/sec IVSd 2D 1.0 0.6 - 1.1 cm LVOT Peak PG 2.5 mmHg AoR Diam 2D 3.3 2.0 - 3.7 cm MV E Peak Catarino 0.6 m/sec EDV 2D 110.6 cm3 MV A Peak Catarino 0.7 m/sec ESV 2D 10.6 cm3 MV E/A 0.9 LA Dimen 2D 4.2 2.3 - 4.0 cm MV Decel Time 157 msec MV Decel Alger 4 MV E/A 0.9 Findings Left Ventricle: Overall, normal left ventricular systolic function. Not all segments visualized. Left ventricle not well visualized. Ejection fraction is visually estimated at 55 %. Tissue Doppler/Mitral Doppler indices are indeterminate in this study due to the presence of atrial fibrillation. Right Ventricle: Not well visualized. Left Atrium: There is mild enlargement of left atrium. Right Atrium: Not well visualized. Mitral Valve: Mitral valve leaflets appear mildly thickened. Mild mitral annular calcification. No mitral valve regurgitation is seen. Aortic Valve: No significant aortic stenosis or insufficiency. Aortic valve not well visualized. Aortic cusps appear mildly calcified. Tricuspid Valve: Tricuspid valve not well visualized. Unable to obtain RVSP due to minimal presence of tricuspid regurgitation. Pulmonic Valve: Pulmonic valve not well visualized. Pericardium: Bilateral pleural effusion seen. Aorta: Not well visualized. IVC: Normal size and normal respiratory collapse consistent with normal right atrial pressure. Conclusions 1.Overall, normal left ventricular systolic function. Not all segments visualized. Left ventricle not well visualized. Ejection fraction is visually estimated at 55 %. Tissue Doppler/Mitral Doppler indices are indeterminate in this study due to the presence of atrial fibrillation. 2.There is mild enlargement of left atrium. 3.Mitral valve leaflets appear mildly thickened. Mild mitral annular calcification. No mitral valve regurgitation is seen. 4.No significant aortic stenosis or insufficiency. Aortic valve not well visualized. Aortic cusps appear mildly calcified. 5.Tricuspid valve not well visualized. Unable to obtain RVSP due to minimal presence of tricuspid regurgitation. 6.extremely suboptimal study. Electronically Signed By: Enid Andersen 23-May-2016 09:04:24 -0800 Patient Name: FRANKIE ANTUNEZ Study Date: 23-May-2016 [id number]
[2016-05-23] MEDS ORDERED: LIDOCAINE 1% (MPF) 5 ML VIAL ONE (10:43)
--- NOTE | 2016-05-23 11:15 | RADRPT ---
PROCEDURE: Ultrasound guided paracentesis. CLINICAL INDICATION: Ascites and shortness of breath. COMPARISON: 03/25/2016. TECHNIQUE: The risks, benefits, and alternatives were explained to the patient and/or the patient's family, inc luding but not limited to bleeding, infection, pain, visceral or vascular damage, shock, and . The patient and/or the patient's family understood the risks and the alternatives and wished to pro ceed with the procedure. Informed written consent was obtained. A procedural time out was performed . The patient's name, date of , and procedure to be performed were verified. Utilizing ultrasound guidance, optimal location for entry to the peritoneal cavity was ascertained. The overlying skin was prepped and draped in the usual sterile fashion. Approximately 10 ml of 1% Xylocaine was injected locally for pain control. Using ultrasound guidance, an 8 Sudanese catheter wa s introduced into the peritoneal cavity in the right lower quadrant without difficulty. FINDINGS: Initial images demonstrate ascites. Approximately 10.0 liters of serous fluid was aspirated and sen t for laboratory analysis. The patient tolerated the procedure well without complication. IMPRESSION: 1. Successful ultrasound-guided paracentesis. RPTAT: QQ .Slava Jain MD, Date Time Electronically viewed and signed by .Slava Jain MD, on 05/23/2016 11:15 .R/
[2016-05-23] MEDS ORDERED: ALBUMIN HUMAN 25% 100 ML IV ONE (11:30)
--- NOTE | 2016-05-23 12:14 | PN ---
Date/Time of Note Date/Time of Note DATE: 05/23/16 TIME: 12:13 Assessment/Plan VTE Prophylaxis VTE Prophylaxis Intervention: SCD's Lines/Catheters IV C[facility]from [facility] Saline Lock Urinary Cath still in place: Yes Reason Cath still needed: terminal illness/intractable pain Assessment/Plan Chief Complaint/Hosp Course 1. Acute encephalopathy, most probably secondary hepatic encephalopathy. The patient will be continued on lactulose. The patient's brain CT scan was negative for any acute intracranial findings. 2. Paroxysmal atrial fibrillation. Cardiology following. Not a candidate for anticoagulation because of underlying encephalopathy and high risk for falls. 3. Chronic kidney disease. The patient has history of underlying chronic kidney disease. The patient's BUN and creatinine will be monitored closely. Nephrotoxic drugs will be used with caution. Will involve nephrology on the case. 4. Lactic acidosis. Improving. Etiology unclear, most probably noninfectious in origin. The patient remains afebrile. The patient will be maintained on ceftriaxone. Ascites fluid culture pending. 5. Ascites. Status post paracentesis on 05/23/2016 with drainage of 10 L of fluid. 6. Hyperammonemia The patient will be continued on lactulose. The patient's mental status will be monitored closely. 7. Hypothyroidism. The patient's Synthroid will be continued. 8. Macrocytic anemia. Most probably anemia secondary to underlying liver cirrhosis. The patient's hemoglobin and hematocrit will be monitored closely. The patient will be transfused as needed. 9. Coagulopathy, most probably secondary to underlying liver cirrhosis. The patient will be monitored closely for any bleeding. 10. Fluids, electrolytes, and nutrition. Continue maintenance fluid. Keep the patient n.p.o. until the patient is completely awake and alert. 11. DVT prophylaxis. Bilateral sequential compression devices. 12. Gastrointestinal prophylaxis. Proton pump inhibitors. 13. Plan. Poor prognosis. Patient getting IV albumin for blood pressure support. Will discontinue Lasix and Aldactone. Family aware of the poor prognosis. The patient continues to remain a DNR. Case discussed with Dr. Molina. Case discussed with consultants. Problems: Subjective 24 Hr Interval Summary Free Text/Dictation Patient very lethargic. Hypotensive. Exam/Review of Systems Vital Signs Vitals Vital Signs Date Time Temp Pulse Resp B/P Pulse Ox O2 Delivery O2 Flow Rate FiO2 05/23/16 11:59 98.6 58 18 81/48 98 3/7/17 00:04 Nasal Cannula 05/22/16 17:00 2.5 Intake and Output 05/22/16 05/22/16 05/23/16 15:00 23:00 07:00 Intake Total 100 ml Output Total 400 ml Balance -300 ml Exam GENERAL: This is an elderly 80-year-old male patient lying in bed in no apparent distress. HEENT: Head normocephalic and atraumatic. Eyes: Anicteric sclerae. Conjunctivae clear. ENT: Nasal septum is midline. Oral mucosa is dry. NECK: Supple. No JVD noticed. RESPIRATORY: Bilateral diminished breath sounds. Agonal breathing. CARDIAC: Regular rhythm with skipped beats. Systolic murmur. ABDOMEN: Distended. Ascites. Bowel sounds hypoactive in all 4 quadrants. GENITOURINARY: Deferred. EXTREMITIES: No cyanosis, no clubbing. Trace bilateral pedal edema. Peripheral pulses palpable. NEUROLOGIC: The patient is lethargic. Results Result Diagram: 05/23/16 0652 05/23/16 0652 Results 24 hrs Laboratory Tests Test 05/22/16 15:24 05/22/16 17:59 05/22/16 18:18 05/23/16 01:18 Lactic Acid Level 2.6 H Bedside Glucose 107 128 Digoxin Level < 0.4 L Test 05/23/16 05:55 05/23/16 06:32 05/23/16 06:52 05/23/16 06:53 Bedside Glucose 142 Ammonia 47 #H Activated Partial Thromboplast Time 42.2 H Alanine Aminotransferase (ALT/SGPT) 30 Albumin 1.9 L Albumin/Globulin Ratio 0.57 Alkaline Phosphatase 71 Anion Gap 14 Aspartate Amino Transf (AST/SGOT) 35 Basophils # 0.0 Basophils % 0.4 Blood Urea Nitrogen 49 H Calcium Level 8.6 Carbon Dioxide Level 20 L Chloride Level 109 Creatine Kinase 47 Creatine Kinase Index 4.2 Creatinine 2.95 H Creatinine Kinase MB (Mass) 1.96 Direct Bilirubin 0.00 Eosinophils # 0.2 Eosinophils % 4.5 Free Thyroxine 2.68 H Globulin 3.30 H Glucose Level 134 Hematocrit 22.4 #L Hemoglobin 7.6 #L INR International Normalized Ratio 2.04 Indirect Bilirubin 1.0 Lymphocytes # 1.8 Lymphocytes % 37.8 Magnesium Level 2.6 H Mean Corpuscular Hemoglobin 35.8 H Mean Corpuscular Hemoglobin Concent 33.9 Mean Corpuscular Volume 105.7 H Mean Platelet Volume 11.0 H Monocytes # 0.5 Monocytes % 10.1 Neutrophils # 2.2 Neutrophils % 46.8 Nucleated Red Blood Cells # 0.0 Nucleated Red Blood Cells % 0.0 Phosphorus Level 4.1 Platelet Count 62 #L Potassium Level 4.0 Prothrombin Time 23.2 #H Prothrombin Time Ratio 1.8 Red Blood Count 2.12 #L Red Cell Distribution Width 20.1 H Sodium Level 139 Thyroid Stimulating Hormone (TSH) 2.140 Total Bilirubin 1.0 Total Protein 5.2 #L Troponin I 0.020 White Blood Count 4.7 L Digoxin Level < 0.4 L Test 05/23/16 11:22 Bedside Glucose 140 Medications Medications Current Medications Ondansetron HCl (Zofran Inj) 4 mg Q6H PRN IV NAUSEA AND/OR VOMITING; Start 05/22 at 13:30 Acetaminophen/ Hydrocodone Bitart ([place] (5/325)) 1 tab Q6H PRN PO MODERATE PAIN LEVEL 4-6; Start 05/22/16 at 13:30 Magnesium Hydroxide (Milk Of Mag) 30 ml DAILY PRN PO CONSTIPATION; Start at 13:30 Bisacodyl (Dulcolax) 5 mg DAILY PRN PO CONSTIPATION; Start 05/22/16 at 13:30 Pantoprazole (Protonix Iv) 40 mg DAILY@06 IV Last administered on 05/23/16 06: 00; Admin Dose 40 MG; Start 05/23/16 at 06:00 Lactulose (Lactulose Enema) 100 ml Q8 MS Last administered on 05/23/16 06:38; Admin Dose 100 ML; Start 05/22/16 at 14:00 Hydralazine HCl (Apresoline) 10 mg Q6H PRN IV SBP>160; Start 05/22/16 at 14:00 Amiodarone HCl (Cordarone) 200 mg DAILY PO ; Start 05/23/16 at 09:00 Carvedilol (Coreg) 3.125 mg BID PO Last administered on 05/22/16 22:03; Admin Dose 3.125 MG; Start 05/22/16 at 21:00 Lamivudine (Epivir) 150 mg DAILY PO ; Start 05/23/16 at 09:00 Lubiprostone (Amitiza) 8 mcg BID PO Last administered on 05/23/16 01:14; Admin Dose 8 MCG; Start 05/22/16 at 21:00 Pregabalin (Lyrica) 100 mg TID PO Last administered on 05/22/16 22:02; Admin Dose 100 MG; Start 05/22/16 at 21:00 Salmeterol Xinafoate/ Fluticasone (Advair 250/50 Diskus) 1 inh BID INH Last administered on 05/23/16 01:14; Admin Dose 1 INH; Start 05/22/16 at 21:00 Spironolactone (Aldactone) 100 mg DAILY PO ; Start 05/23/16 at 09:00 Tamsulosin HCl 0.4 mg 0.4 mg HS PO Last administered on 05/22/16 22:02; Admin Dose 0.4 MG; Start 05/22/16 at 21:00 Ceftriaxone Sodium 50 ml @ 100 mls/hr Q24H IVPB ; Start 05/23/16 at 12:00 Dextrose/Sodium Chloride (D5-NS) 1,000 ml @ 50 mls/hr Q20H IV Last administered on 05/22/16 18:05; Admin Dose 50 MLS/HR; Start 05/22/16 at 17:00 Insulin Aspart (Novolog Insulin Pen) NOVOLOG *MILD* ALGORITHM Q6H SC ; Start 05/22/16 at 17:00 Miscellaneous Information 1 ea NOTE XX ; Start 05/22/16 at 17:00 Glucose (Glutose) 15 gm Q15M PRN PO DECREASED GLUCOSE; Start 05/22/16 at 17:00 Glucose (Glutose) 22.5 gm Q15M PRN PO DECREASED GLUCOSE; Start 05/22/16 at 17:00 Dextrose (D50w Syringe) 25 ml Q15M PRN IV DECREASED GLUCOSE; Start 05/22/16 at 17:00 Dextrose (D50w Syringe) 50 ml Q15M PRN IV DECREASED GLUCOSE; Start 05/22/16 at 17:00 Glucagon (Glucagen) 1 mg Q15M PRN IM DECREASED GLUCOSE; Start 05/22/16 at 17:00 Glucose 15 gm 15 gm Q15M PRN BUCCAL DECREASED GLUCOSE; Start 05/22/16 at 17:00 Albumin Human (Albumin Human 25%) 100 ml @ 100 mls/hr ONCE ONCE IV Last administered on 05/23/16t 11:34; Admin Dose 100 MLS/HR; Start 05/23/16 at 11:30; Stop 05/23/16 at 12:29 KATYA PAUL NP May 23, 2016 12:14
--- NOTE | 2016-05-23 13:04 | CONS ---
DATE OF ADMISSION: 05/22/2016 DATE OF CONSULTATION: 05/23/2016 TYPE OF CONSULTATION: Nephrology. REFERRING PHYSICIAN: Edison Edgar MD REASON FOR CONSULTATION: Acute renal failure on chronic kidney disease progressing to hepatorenal s yndrome. HISTORY OF PRESENT ILLNESS: This is a 80-year-old male with a past medical history of diabetes mallory itus, history of hepatitis C as a kid, history of previous vascular surgery, history of chronic kidn ey disease, type 2 hepatorenal syndrome, history of atrial fibrillation and hearing difficulty, who was brought in by family because of acute hepatic encephalopathy. The patient gets admitted to the hospitalist service. Overnight, the patient remained altered level of consciousness. He is not abl e to take any p.o. medication. He was slightly coagulopathic with an INR of 1.5. The patient under went paracentesis and 10 liters of fluid is drained. The patient is noted to have a BUN which bumpe d up 49, creatinine of 2.9. He is slightly acidotic with bicarbonate of 20. Currently unresponsive . He is lethargic, not able to provide any detailed history. The history is obtained from the [facility] hter at bedside. REVIEW OF SYSTEMS: Unable to obtain from the patient since he is currently lethargic, altered and h epatitic encephalopathy. PAST MEDICAL HISTORY: As per HPI. PAST SURGICAL HISTORY: History of previous prostate surgery, history of circumcision. SOCIAL HISTORY: The patient has no history of alcohol use as per the daughter, but his liver cirrho sis is from hepatitis C. No smoking or recreational drug use. FAMILY HISTORY: No family history of kidney disease or anyone in the family is not on dialysis. PHYSICAL EXAMINATION: VITAL SIGNS: Temperature 98.6, heart rate 57, respirations 18, blood pressure 77/60, saturation is 98% to 99% on 4 liters nasal cannula. GENERAL: The patient is currently lethargic and not able to provide any detailed. He is in hepatit ic encephalopathy. HEENT: Pupils equal, round, reactive to light and accommodation. No jaundice. NECK: Supple. HEART: S1, S2. Regular rhythm, no murmur. LUNGS: Decreased breath sounds at the right middle lobe, right lower lobe. No wheezing, no crackle s. ABDOMEN: Soft, ascites is present, but nontender, nondistended. EXTREMITIES: 1 to 2+ pitting edema. NEUROLOGICAL: Uncooperative for exam. LABORATORY DATA/DIAGNOSTIC IMAGIN. Sodium 139, potassium 4, chloride 109, bicarbonate 20, BUN 49, creatinine 2.9, glucose 134, calc ium 8.6. LFTs are normal. Albumin 1.9. PT 23.2, PTT 42.2, INR 2.04. 2. WBC 4.7, hemoglobin 7.6, platelet count is 62. Urinalysis is negative for any infections. 3. Chest x-ray, 1 view, done portable in the emergency room negative for any acute finding. It ida ws atherosclerotic aorta without CHF. Osteoporosis, atelectasis at both lung bases. 4. CT head without contrast is negative for any acute intracranial hemorrhage. IMPRESSION: This is a 80-year-old male who has been admitted with acute hepatic encephalopathy due to the progression of his liver disease and decompensated liver cirrhosis secondary to hepatitis C. Renal has been consulted for: 1. Acute kidney injury on chronic kidney disease, likely stage IV secondary to type 2 hepatorenal s yndrome. The patient is going into acute hepatorenal syndrome with oliguria and worsening renal hernando lure. 2. History of liver cirrhosis secondary to hepatitis C. 3. History of hypertension. 4. History of diabetes mellitus. 5. History of atrial fibrillation. 6. Hypothyroidism. 7. Acute hepatic encephalopathy secondary to high ammonia. 8. Coagulopathy secondary to liver cirrhosis. PLAN: 1. Thank you, Dr. Edgar, for this consultation. The patient is already on lactulose for hepati tic encephalopathy. He is status post paracentesis, 10 liters of fluid is drained. I will order so me urine studies including a urine sodium, urine protein, urine creatinine and urine eosinophils. 2. A CK total with a uric acid has been ordered. 3. The patient is currently getting one dose of IV albumin. I will give another dose of IV albumin at 5:00 p.m. The patient is on Lasix. I will hold off on his Lasix diuresis at this point due to t he hypotension. 4. The patient's daughter was at bedside. Due to his poor prognosis and advanced liver cirrhosis w ith decompensation, I had a discussion with the daughter at bedside. She does not want to have any renal replacement therapy. The patient's renal function continues to deteriorate due to his poor pr ognosis. I agree and concur with that finding. Total time spent in this patient's evaluation, making assessment and plan, updating the patient's da ughter at bedside and communicating with the nursing staff took more than 90 minutes. Dictated By: SANIA GRAHAM MD, KP/WAN Conf#: [id number] DID#: [id number]
[2016-05-23 13:13] LABS: FLUID APPEARANCE CLEAR; FLUID TYPE THORACENTHESIS; FLUID WBC'S 91 /cmm
[2016-05-23 13:14] LABS: FLUID LYMPHOCYTES 71 %; FLUID MONOCYTES 21 %; FLUID NEUTROPHILS 8 %; FLUID RBC EST 1+
--- NOTE | 2016-05-23 13:14 | RADRPT ---
PROCEDURE: Retroperitoneal US. CLINICAL INDICATION: Renal insufficiency TECHNIQUE: Multiple sonographic images of the kidneys and retroperitoneum were obtained. The imag es were reviewed on a PACS workstation. COMPARISON: No prior studies are available for comparison. FINDINGS: The kidneys are normal in contour, cortical thickness and cortical echogenicity. The right kidney measures 9.2 cm. The left kidney measures 8.9 cm. There are small simple cysts in the kidneys, the largest measuring 1.3 cm in the right kidney and 1. 2 cm in the left kidney.. No kidney stones are visualized. There is no evidence for hydronephrosis. The urinary bladder is decompressed by a Rodriguez catheter and not seen. There is a large amount of ascites. RPTAT: AA IMPRESSION: Small kidneys with small simple cysts. No evidence of hydronephrosis. Large amount of ascites. .Rosalio Peacock MD, Date Time Electronically viewed and signed by .Rosalio Peacock MD, on 05/23/2016 13:14 .S/
--- NOTE | 2016-05-23 13:39 | PN ---
DATE: 05/23/2016 CARDIOLOGY FOLLOWUP SUBJECTIVE: Discussed with the staff, discussed with the patient's daughter. The patient remains l ethargic. Remains in sinus rhythm, sinus bradycardia. Nonverbal. MEDICATIONS: Reviewed. PHYSICAL EXAMINATION: VITAL SIGNS: Temperature 98.6, heart rate of 57, blood pressure of 80s/40s, respiratory rate of 18. HEENT: Normocephalic, atraumatic, cachectic gentleman. Pupils are equal. CARDIOVASCULAR: Regular rate and rhythm, systolic murmur. PULMONARY: With no wheezes anteriorly. GASTROINTESTINAL: Distended. No rebound or guarding. EXTREMITIES: Positive edema. NEUROLOGIC: Lethargic. LABORATORY: WBC of 4.7, hemoglobin 7.6, platelets of 62. Sodium 139, potassium 4, BUN of 49, creat inine 2.95, glucose 134. Albumin is 1.9. Echocardiogram showed ejection fraction of probably 55%, was a very tedious study. ASSESSMENT AND PLAN: 1. Paroxysmal atrial fibrillation/bradycardia. 2. Severe liver cirrhosis. 3. Renal failure, unclear acute versus chronic. 4. Severe encephalopathy, appears to be secondary to hepatic encephalopathy. 5. History of hypertension, currently hypotensive. 6. Thyroid disorder. 7. Diabetes. RECOMMENDATIONS: I will discontinue the amiodarone given his significant liver disease. Thyroid ma nagement as per internal medicine. Renal is evaluating the patient as well. Diuresis as per renal. Will discontinue the carvedilol for now as well given and his bradycardia and hypotension. Dictated By: ENID TAYLOR MD AV/WAN Conf#: [id number] DID#: [id number] CC: KATYA PAUL CELLAR HAND;*EndCC*
[2016-05-23 14:20] LABS: FLUID TYPE PARACENTESIS FLUID
[2016-05-23 14:21] LABS: FLUID AMYLASE < 30 U/L; FLUID GLUCOSE 123 mg/dl; FLUID TYPE PARACENTESIS FLUID
[2016-05-23 14:22] LABS: FLUID TOTAL PROTEIN < 2.0 g/dl
[2016-05-23] MEDS: CEFTRIAXONE 1 GM/50 ML (PMX) 50 ML IVPB SCH (15:46)
[2016-05-23] MEDS ORDERED: ALBUMIN HUMAN 25% 50 ML IV ONE (19:00)
[2016-05-23] MEDS: TAMSULOSIN (SR) 0.4 MG CAP PO SCH (22:33)
[2016-05-23] MEDS: DEXTROSE 5%-0.9% NACL 1,000 ML IV SCH (22:34)
[2016-05-24] VITALS (12 sets, daily range): BP systolic 80–98; BP diastolic 43–55; PULSE 55–71; RESP 16–18
[2016-05-24] MEDS: ALBUMIN HUMAN 25% 50 ML IV SCH (02:00)
[2016-05-24] MEDS: INSULIN ASPART [NOVOLOG] 3 ML PEN SC SCH ×4 (04:32→21:00)
[2016-05-24] MEDS: PANTOPRAZOLE 40 MG INJ IV SCH (05:36)
[2016-05-24] MEDS: LACTULOSE ENEMA 1,000 ML BTL PR SCH ×3 (05:37→20:58)
[2016-05-24 05:58] LABS: ADD SCAN DIFF NO
[2016-05-24 06:07] LABS: ABNORMAL IP MESSAGE 1; BASOPHILS % 0.6 % (0.0-2.0); EOSINOPHILS # 0.2 10^3/ul (0.0-0.5); EOSINOPHILS % 4.8 % (0.0-7.0); HEMATOCRIT 23.4 % (42.0-52.0); HEMOGLOBIN 7.9 g/dl (14.0-18.0); LYMPHOCYTES # 1.4 10^3/ul (0.8-2.9); LYMPHOCYTES % 43.9 % (15.0-51.0); MEAN CORPUSCULAR HEMOGLOBIN 35.7 pg (29.0-33.0); MEAN CORPUSCULAR HGB CONC 33.8 g/dl (32.0-37.0); MEAN CORPUSCULAR VOLUME 105.9 fl (82.0-101.0); MEAN PLATELET VOLUME 11.8 fl (7.4-10.4); MONOCYTE # 0.3 10^3/ul (0.3-0.9); MONOCYTES % 10.6 % (0.0-11.0); NEUTROPHIL # 1.2 10^3/ul (1.6-7.5); NEUTROPHILS % 39.8 % (39.0-77.0); PLATELET COUNT 65 10^3/UL (140-415); RED BLOOD COUNT 2.21 10^6/ul (4.70-6.10); RED CELL DISTRIBUTION WIDTH 19.9 % (11.5-14.5); WHITE BLOOD COUNT 3.1 10^3/ul (4.8-10.8)
[2016-05-24 06:21] LABS: URIC ACID 11.4 mg/dl (3.1-7.9)
[2016-05-24 06:47] LABS: POTASSIUM 3.6 mmol/L (3.5-5.1)
[2016-05-24 06:49] LABS: ALBUMIN/GLOBULIN RATIO 0.62; BILIRUBIN,INDIRECT 0.7 mg/dl (0-1.1); BILIRUBIN,TOTAL 0.7 mg/dl (0.2-1.3); CREATININE 2.94 mg/dl (0.61-1.24); TOTAL PROTEIN 5.2 g/dl (6.1-8.1)
[2016-05-24 06:50] LABS: CALCIUM 8.4 mg/dl (8.4-10.2)
[2016-05-24] MEDS: LEVOTHYROXINE 25 MCG TAB PO SCH (08:19)
[2016-05-24] MEDS: SALMETEROL/FLUTICASONE 250/50 INHA INH SCH ×2 (08:19→20:58)
[2016-05-24] MEDS: LUBIPROSTONE 8 MCG CAPSULE PO SCH ×2 (08:20→20:26)
[2016-05-24] MEDS: PREGABALIN 25 MG CAP PO SCH (08:28)
[2016-05-24] MEDS: LAMIVUDINE 150 MG TAB PO SCH (08:28)
[2016-05-24] MEDS: DEXTROSE 5%-0.9% NACL 1,000 ML IV SCH ×2 (09:00→21:02)
--- NOTE | 2016-05-24 09:24 | PN ---
DATE: 05/24/2016 CARDIOLOGY FOLLOWUP SUBJECTIVE: No new cardiac events. The patient's heart rate remains stable, on the low side, but s table overall. He remains lethargic. MEDICATIONS: Reviewed. PHYSICAL EXAMINATION: VITAL SIGNS: Temperature blood pressure 91/52, respiration rate of 18, saturating 99%. HEENT: Normocephalic, atraumatic. Pupils are equal. CARDIOVASCULAR: Regular rate and rhythm now. PULMONARY: Anteriorly with no wheezes. GASTROINTESTINAL: Soft, distended. EXTREMITIES: With trivial edema. NEUROLOGIC: Lethargic. LABORATORY: WBC of 33.1, hemoglobin 7.9, platelets of 65,000. Sodium 139, potassium 3.6, BUN of 46 , creatinine 2.9, glucose of 127. ASSESSMENT AND PLAN: 1. History of paroxysmal atrial fibrillation. Rhythm is currently bradycardic, but stable. 2. Severe 3. Liver cirrhosis. 4. Renal failure. 5. Encephalopathy, probably secondary to hepatic encephalopathy. 6. History of hypertension, currently hypotensive. 7. Thyroid disorder. 8. Diabetes. RECOMMENDATIONS: Follow with renal recommendations. Consider GI consultation as well. Off all the blood pressure medication due to his hypotension. Heart rate remains stable. Monitor only at this point. Dictated By: ENID DICKSON/WAN Conf#: [id number] DID#: [id number] CC: KATYA PAUL REPAIRER PUMP;*EndCC*
--- NOTE | 2016-05-24 13:25 | PN ---
Date/Time of Note Date/Time of Note DATE: 05/24/16 TIME: 13:21 Assessment/Plan VTE Prophylaxis VTE Prophylaxis Intervention: SCD's Lines/Catheters IV C[facility]ter [facility]from [facility] [facility] Urinary Cath still in place: Yes Reason Cath still needed: terminal illness/intractable pain Assessment/Plan Chief Complaint/Hosp Course 1. Acute encephalopathy, most probably secondary hepatic encephalopathy. The patient will be continued on lactulose. The patient's brain CT scan was negative for any acute intracranial findings. 2. Paroxysmal atrial fibrillation. Cardiology following. Not a candidate for anticoagulation because of underlying encephalopathy and high risk for falls. 3. Chronic kidney disease. The patient has history of underlying chronic kidney disease. The patient's BUN and creatinine will be monitored closely. Nephrotoxic drugs will be used with caution. Nephrology on the case. 4. Lactic acidosis. Improving. Etiology unclear, most probably noninfectious in origin. The patient remains afebrile. The patient will be maintained on ceftriaxone. Kwok cultures negative. 5. Ascites. Status post paracentesis on 05/23/2016 with drainage of 10 L of fluid. 6. Hyperammonemia The patient will be continued on lactulose. The patient's mental status will be monitored closely. 7. Hypothyroidism. The patient's Synthroid will be continued. 8. Macrocytic anemia. Most probably anemia secondary to underlying liver cirrhosis. The patient's hemoglobin and hematocrit will be monitored closely. The patient will be transfused as needed. 9. Coagulopathy, most probably secondary to underlying liver cirrhosis. The patient will be monitored closely for any bleeding. 10. Fluids, electrolytes, and nutrition. Continue maintenance fluid. Clear liquids if the patient is completely awake and alert. 11. DVT prophylaxis. Bilateral sequential compression devices. 12. Gastrointestinal prophylaxis. Proton pump inhibitors. 13. Plan. Poor prognosis. Family aware of the poor prognosis. The patient continues to remain a DNR. Family deciding on hospice. Case discussed with Dr. Molina. Problems: Subjective 24 Hr Interval Summary Free Text/Dictation Patient remains lethargic. Hypotensive. Exam/Review of Systems Vital Signs Vitals Vital Signs Date Time Temp Pulse Resp B/P Pulse Ox O2 Delivery O2 Flow Rate FiO2 05/24/16 12:49 60 05/24/16 11:44 97.6 18 82/43 96 05/24/16 08:30 Nasal Cannula 2.0 Intake and Output 05/23/16 05/23/16 05/24/16 15:00 23:00 07:00 Intake Total 650 ml 450 ml Output Total 350 ml 280 ml Balance 300 ml 170 ml Exam GENERAL: This is an elderly 80-year-old male patient lying in bed in no apparent distress. HEENT: Head normocephalic and atraumatic. Eyes: Anicteric sclerae. Conjunctivae clear. ENT: Nasal septum is midline. Oral mucosa is dry. NECK: Supple. No JVD noticed. RESPIRATORY: Bilateral diminished breath sounds. Agonal breathing. CARDIAC: Regular rhythm with skipped beats. Systolic murmur. ABDOMEN: Distended. Ascites. Bowel sounds hypoactive in all 4 quadrants. GENITOURINARY: Deferred. EXTREMITIES: No cyanosis, no clubbing. Trace bilateral pedal edema. Peripheral pulses palpable. NEUROLOGIC: The patient is lethargic. Results Result Diagram: 05/24/16 0545 05/24/16 0545 Results 24 hrs Laboratory Tests Test 05/23/16 17:23 05/23/16 22:36 05/24/16 04:24 05/24/16 05:45 Bedside Glucose 136 150 145 Alanine Aminotransferase (ALT/SGPT) 25 Albumin 2.0 L Albumin/Globulin Ratio 0.62 Alkaline Phosphatase 61 Ammonia 50 H Anion Gap 13 Aspartate Amino Transf (AST/SGOT) 32 Basophils # 0.0 Basophils % 0.6 Blood Urea Nitrogen 46 H Calcium Level 8.4 Carbon Dioxide Level 21 Chloride Level 109 Creatine Kinase 56 Creatinine 2.94 H Direct Bilirubin 0.00 Eosinophils # 0.2 Eosinophils % 4.8 Globulin 3.20 Glucose Level 127 Hematocrit 23.4 L Hemoglobin 7.9 L Indirect Bilirubin 0.7 Lymphocytes # 1.4 Lymphocytes % 43.9 Magnesium Level 2.5 Mean Corpuscular Hemoglobin 35.7 H Mean Corpuscular Hemoglobin Concent 33.8 Mean Corpuscular Volume 105.9 H Mean Platelet Volume 11.8 H Monocytes # 0.3 Monocytes % 10.6 Neutrophils # 1.2 L Neutrophils % 39.8 Nucleated Red Blood Cells # 0.0 Nucleated Red Blood Cells % 0.0 Platelet Count 65 L Potassium Level 3.6 Red Blood Count 2.21 L Red Cell Distribution Width 19.9 H Sodium Level 139 Total Bilirubin 0.7 Total Protein 5.2 L Uric Acid 11.4 H White Blood Count 3.1 #L Test 05/24/16 11:37 Bedside Glucose 149 Medications Medications Current Medications Ondansetron HCl (Zofran Inj) 4 mg Q6H PRN IV NAUSEA AND/OR VOMITING; Start 05/22 at 13:30 Acetaminophen/ Hydrocodone Bitart ([place] (5/325)) 1 tab Q6H PRN PO MODERATE PAIN LEVEL 4-6; Start 05/22/16 at 13:30 Magnesium Hydroxide (Milk Of Mag) 30 ml DAILY PRN PO CONSTIPATION; Start at 13:30 Bisacodyl (Dulcolax) 5 mg DAILY PRN PO CONSTIPATION; Start 05/22/16 at 13:30 Pantoprazole (Protonix Iv) 40 mg DAILY@06 IV Last administered on 05/24/16 05: 36; Admin Dose 40 MG; Start 05/23/16 at 06:00 Lactulose (Lactulose Enema) 100 ml Q8 CO Last administered on 05/24/16 05:37; Admin Dose 100 ML; Start 05/22/16 at 14:00 Hydralazine HCl (Apresoline) 10 mg Q6H PRN IV SBP>160; Start 05/22/16 at 14:00 Lamivudine (Epivir) 150 mg DAILY PO Last administered on 05/24/16 08:28; Admin Dose 150 MG; Start 05/23/16 at 09:00 Lubiprostone (Amitiza) 8 mcg BID PO Last administered on 05/24/16 08:20; Admin Dose 8 MCG; Start 05/22/16 at 21:00 Salmeterol Xinafoate/ Fluticasone (Advair 250/50 Diskus) 1 inh BID INH Last administered on 05/24/16 08:19; Admin Dose 1 INH; Start 05/22/16 at 21:00 Tamsulosin HCl 0.4 mg 0.4 mg HS PO Last administered on 05/23/16 22:33; Admin Dose 0.4 MG; Start 05/22/16 at 21:00 Ceftriaxone Sodium 50 ml @ 100 mls/hr Q24H IVPB Last administered on 05/23/16 15:46; Admin Dose 100 MLS/HR; Start 05/23/16 at 12:00 Dextrose/Sodium Chloride (D5-NS) 1,000 ml @ 50 mls/hr Q20H IV Last administered on 05/23/16 22:34; Admin Dose 50 MLS/HR; Start 05/22/16 at 17:00 Insulin Aspart (Novolog Insulin Pen) NOVOLOG *MILD* ALGORITHM Q6H SC Last administered on 05/24/16 13:16; Admin Dose 1 UNIT; Start 05/22/16 at 17:00 Miscellaneous Information 1 ea NOTE XX ; Start 05/22/16 at 17:00 Glucose (Glutose) 15 gm Q15M PRN PO DECREASED GLUCOSE; Start 05/22/16 at 17:00 Glucose (Glutose) 22.5 gm Q15M PRN PO DECREASED GLUCOSE; Start 05/22/16 at 17:00 Dextrose (D50w Syringe) 25 ml Q15M PRN IV DECREASED GLUCOSE; Start 05/22/16 at 17:00 Dextrose (D50w Syringe) 50 ml Q15M PRN IV DECREASED GLUCOSE; Start 05/22/16 at 17:00 Glucagon (Glucagen) 1 mg Q15M PRN IM DECREASED GLUCOSE; Start 05/22/16 at 17:00 Glucose (Glutose) 15 gm Q15M PRN BUCCAL DECREASED GLUCOSE; Start 05/22/16 at 17: 00 Pregabalin (Lyrica) 100 mg TID PO ; Start 05/24/16 at 13:00 Allopurinol (Zyloprim) 100 mg DAILY PO ; Start 05/25/16 at 09:00 KATYA PAUL NP May 24, 2016 13:25
[2016-05-24] MEDS: CEFTRIAXONE 1 GM/50 ML (PMX) 50 ML IVPB SCH (14:39)
[2016-05-24] MEDS: PREGABALIN 100 MG CAP PO SCH ×2 (16:55→20:26)
[2016-05-24] MEDS: TAMSULOSIN (SR) 0.4 MG CAP PO SCH (20:26)
--- NOTE | 2016-05-24 21:09 | CONS ---
Date/Time of Note Date/Time of Note DATE: 05/24/16 TIME: 21:06 Assessment/Plan Assessment/Plan Additional Assessment/Plan 1. 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 The patient is going into acute hepatorenal syndrome with oliguria and worsening renal failure. 2. History of liver cirrhosis secondary to hepatitis C. 3. History of hypertension. 4. History of diabetes mellitus. 5. History of atrial fibrillation. 6. Hypothyroidism. 7. Acute hepatic encephalopathy secondary to high ammonia. 8. Coagulopathy secondary to liver cirrhosis. PLAN: continue IV albumin BP still labile Lasix and spironolactone has been discontinued will follow up family meeting tomorrow at 10 AM Consultation Date/Type/Reason Admit Date/Time May 22, 2016 at 11:30 Initial Consult Date May Type of Consultation: NEPHROLOGY Reason for Consultation acute Kidney injury,hepatorenal syndrome Referring Provider: RALETTE MERIDA MD 24 HR Interval Summary Free Text/Dictation BUN/Cr stable, BP stable today Exam/Review of Systems Vital Signs Vitals Vital Signs Date Time Temp Pulse Resp B/P Pulse Ox O2 Delivery O2 Flow Rate FiO2 05/24/16 20:11 71 05/24/16 20:00 97.9 17 98/55 93 05/24/16 08:30 Nasal Cannula 2.0 Intake and Output 05/23/16 05/23/16 05/24/16 15:00 23:00 07:00 Intake Total 650 ml 450 ml Output Total 350 ml 280 ml Balance 300 ml 170 ml Exam GENERAL: The patient is currently lethargic and not able to provide any detailed. He is in hepatitic encephalopathy. HEENT: Pupils equal, round, reactive to light and accommodation. No jaundice. NECK: Supple. HEART: S1, S2. Regular rhythm, no murmur. LUNGS: Decreased breath sounds at the right middle lobe, right lower lobe. No wheezing, no crackles. ABDOMEN: Soft, ascites is present, but nontender, nondistended. EXTREMITIES: 1 to 2+ pitting edema. NEUROLOGICAL: Uncooperative for exam. Results Result Diagram: 05/24/16 0545 05/24/16 0545 Results 24 hrs Laboratory Tests Test 05/23/16 22:36 05/24/16 04:24 05/24/16 05:45 05/24/16 11:37 Bedside Glucose 150 145 149 Alanine Aminotransferase (ALT/SGPT) 25 Albumin 2.0 L Albumin/Globulin Ratio 0.62 Alkaline Phosphatase 61 Ammonia 50 H Anion Gap 13 Aspartate Amino Transf (AST/SGOT) 32 Basophils # 0.0 Basophils % 0.6 Blood Urea Nitrogen 46 H Calcium Level 8.4 Carbon Dioxide Level 21 Chloride Level 109 Creatine Kinase 56 Creatinine 2.94 H Direct Bilirubin 0.00 Eosinophils # 0.2 Eosinophils % 4.8 Globulin 3.20 Glucose Level 127 Hematocrit 23.4 L Hemoglobin 7.9 L Indirect Bilirubin 0.7 Lymphocytes # 1.4 Lymphocytes % 43.9 Magnesium Level 2.5 Mean Corpuscular Hemoglobin 35.7 H Mean Corpuscular Hemoglobin Concent 33.8 Mean Corpuscular Volume 105.9 H Mean Platelet Volume 11.8 H Monocytes # 0.3 Monocytes % 10.6 Neutrophils # 1.2 L Neutrophils % 39.8 Nucleated Red Blood Cells # 0.0 Nucleated Red Blood Cells % 0.0 Platelet Count 65 L Potassium Level 3.6 Red Blood Count 2.21 L Red Cell Distribution Width 19.9 H Sodium Level 139 Total Bilirubin 0.7 Total Protein 5.2 L Uric Acid 11.4 H White Blood Count 3.1 #L Test 05/24/16 17:05 05/24/16 21:00 Bedside Glucose 129 128 Medications Medications Current Medications Ondansetron HCl (Zofran Inj) 4 mg Q6H PRN IV NAUSEA AND/OR VOMITING; Start 05/22 at 13:30 Acetaminophen/ Hydrocodone Bitart ([place] (5/325)) 1 tab Q6H PRN PO MODERATE PAIN LEVEL 4-6; Start 05/22/16 at 13:30 Magnesium Hydroxide (Milk Of Mag) 30 ml DAILY PRN PO CONSTIPATION; Start at 13:30 Bisacodyl (Dulcolax) 5 mg DAILY PRN PO CONSTIPATION; Start 05/22/16 at 13:30 Pantoprazole (Protonix Iv) 40 mg DAILY@06 IV Last administered on 05/24/16 05: 36; Admin Dose 40 MG; Start 05/23/16 at 06:00 Lactulose (Lactulose Enema) 100 ml Q8 SC Last administered on 05/24/16 14:44; Admin Dose 100 ML; Start 05/22/16 at 14:00 Hydralazine HCl (Apresoline) 10 mg Q6H PRN IV SBP>160; Start 05/22/16 at 14:00 Lamivudine (Epivir) 150 mg DAILY PO Last administered on 05/24/16 08:28; Admin Dose 150 MG; Start 05/23/16 at 09:00 Lubiprostone (Amitiza) 8 mcg BID PO Last administered on 05/24/16 08:20; Admin Dose 8 MCG; Start 05/22/16 at 21:00 Salmeterol Xinafoate/ Fluticasone (Advair 250/50 Diskus) 1 inh BID INH Last administered on 05/24/16 20:58; Admin Dose 1 INH; Start 05/22/16 at 21:00 Tamsulosin HCl 0.4 mg 0.4 mg HS PO Last administered on 05/23/16 22:33; Admin Dose 0.4 MG; Start 05/22/16 at 21:00 Ceftriaxone Sodium 50 ml @ 100 mls/hr Q24H IVPB Last administered on 05/24/16 14:39; Admin Dose 100 MLS/HR; Start 05/23/16 at 12:00 Dextrose/Sodium Chloride (D5-NS) 1,000 ml @ 50 mls/hr Q20H IV Last administered on 05/24/16 21:02; Admin Dose 50 MLS/HR; Start 05/22/16 at 17:00 Insulin Aspart (Novolog Insulin Pen) NOVOLOG *MILD* ALGORITHM Q6H SC Last administered on 05/24/16 13:16; Admin Dose 1 UNIT; Start 05/22/16 at 17:00 Miscellaneous Information 1 ea NOTE XX ; Start 05/22/16 at 17:00 Glucose (Glutose) 15 gm Q15M PRN PO DECREASED GLUCOSE; Start 05/22/16 at 17:00 Glucose (Glutose) 22.5 gm Q15M PRN PO DECREASED GLUCOSE; Start 05/22/16 at 17:00 Dextrose (D50w Syringe) 25 ml Q15M PRN IV DECREASED GLUCOSE; Start 05/22/16 at 17:00 Dextrose (D50w Syringe) 50 ml Q15M PRN IV DECREASED GLUCOSE; Start 05/22/16 at 17:00 Glucagon (Glucagen) 1 mg Q15M PRN IM DECREASED GLUCOSE; Start 05/22/16 at 17:00 Glucose (Glutose) 15 gm Q15M PRN BUCCAL DECREASED GLUCOSE; Start 05/22/16 at 17: 00 Pregabalin (Lyrica) 100 mg TID PO Last administered on 05/24/16t 16:55; Admin Dose 100 MG; Start 05/24/16 at 13:00 Allopurinol (Zyloprim) 100 mg DAILY PO ; Start 05/25/16 at 09:00 SANIA GRAHAM MD May 24, 2016 21:09
[2016-05-25] VITALS (12 sets, daily range): BP systolic 90–111; BP diastolic 48–57; PULSE 60–71; RESP 16–19
[2016-05-25] MEDS: ONDANSETRON 4 MG INJ IV PRN (02:00)
[2016-05-25] MEDS: INSULIN ASPART [NOVOLOG] 3 ML PEN SC SCH ×4 (05:00→22:38)
[2016-05-25] MEDS: PANTOPRAZOLE 40 MG INJ IV SCH (06:49)
[2016-05-25] MEDS: LACTULOSE ENEMA 1,000 ML BTL PR SCH ×2 (06:51→14:38)
[2016-05-25 07:40] LABS: ADD SCAN DIFF NO
[2016-05-25 07:51] LABS: ABNORMAL IP MESSAGE 1; BASOPHILS % 0.3 % (0.0-2.0); EOSINOPHILS # 0.2 10^3/ul (0.0-0.5); EOSINOPHILS % 2.5 % (0.0-7.0); HEMATOCRIT 22.9 % (42.0-52.0); HEMOGLOBIN 7.7 g/dl (14.0-18.0); LYMPHOCYTES # 1.7 10^3/ul (0.8-2.9); LYMPHOCYTES % 24.4 % (15.0-51.0); MEAN CORPUSCULAR HEMOGLOBIN 35.8 pg (29.0-33.0); MEAN CORPUSCULAR HGB CONC 33.6 g/dl (32.0-37.0); MEAN CORPUSCULAR VOLUME 106.5 fl (82.0-101.0); MEAN PLATELET VOLUME 11.4 fl (7.4-10.4); MONOCYTE # 0.4 10^3/ul (0.3-0.9); MONOCYTES % 6.5 % (0.0-11.0); NEUTROPHIL # 4.5 10^3/ul (1.6-7.5); NEUTROPHILS % 65.9 % (39.0-77.0); PLATELET COUNT 53 10^3/UL (140-415); RED BLOOD COUNT 2.15 10^6/ul (4.70-6.10); RED CELL DISTRIBUTION WIDTH 19.9 % (11.5-14.5); WHITE BLOOD COUNT 6.8 10^3/ul (4.8-10.8)
[2016-05-25 08:03] LABS: POTASSIUM 3.5 mmol/L (3.5-5.1)
[2016-05-25 08:05] LABS: ALBUMIN/GLOBULIN RATIO 0.64; BILIRUBIN,INDIRECT 0.6 mg/dl (0-1.1); BILIRUBIN,TOTAL 0.6 mg/dl (0.2-1.3); CREATININE 2.75 mg/dl (0.61-1.24); TOTAL PROTEIN 5.1 g/dl (6.1-8.1)
[2016-05-25] MEDS: ALBUMIN HUMAN 25% 50 ML IV SCH ×2 (09:05→22:19)
[2016-05-25] MEDS: LEVOTHYROXINE 25 MCG TAB PO SCH (09:05)
[2016-05-25] MEDS: SALMETEROL/FLUTICASONE 250/50 INHA INH SCH ×2 (09:05→22:19)
[2016-05-25] MEDS: LUBIPROSTONE 8 MCG CAPSULE PO SCH ×2 (09:05→22:20)
[2016-05-25] MEDS: PREGABALIN 100 MG CAP PO SCH ×3 (09:11→22:20)
[2016-05-25] MEDS: LAMIVUDINE 150 MG TAB PO SCH (09:11)
[2016-05-25] MEDS: ALLOPURINOL 100 MG TAB PO SCH (09:11)
[2016-05-25 09:16] LABS: CALCIUM 8.6 mg/dl (8.4-10.2)
--- NOTE | 2016-05-25 10:49 | PN ---
DATE: 05/25/2016 CARDIOLOGY FOLLOWUP SUBJECTIVE: The patient remains in sinus rhythm. Heart rate has remained stable. He is more awake and responsive at this point and less lethargic. MEDICATIONS: Reviewed. PHYSICAL EXAMINATION: VITAL SIGNS: Temperature 97.2, heart rate of 70, blood pressure 95/51, respiration rate of 19, satu rating 97%. HEENT: Normocephalic, atraumatic. Pupils are equal. CARDIOVASCULAR: Regular rate and rhythm. PULMONARY: With no wheezes. GASTROINTESTINAL: Distended with positive ascites. EXTREMITIES: With minimal lower extremity edema. NEUROLOGIC: Awake, oriented to person. LABORATORY: WBC of 6.8, hemoglobin 7.7, platelets of 53. Sodium 139, potassium 3.5, BUN of 41, cre atinine 2.75, glucose 137. ASSESSMENT AND PLAN: 1. Hepatic encephalopathy. 2. Severe liver cirrhosis. 3. Arrhythmias, currently stable. 4. Acute renal failure on chronic kidney disease. 5. History of hypertension, currently hypotensive but stable. 6. Hypothyroidism. 7. Diabetes. RECOMMENDATIONS: We will continue with the current cardiac care. Electrolytes will be corrected as needed. We will monitor on telemetry. Follow up with the renal recommendations. Dictated By: ENID TAYLOR MD AV/WAN Conf#: [id number] DID#: [id number] CC: KATYA PAUL CLOAK ROOM ATTENDANT;*End*
[2016-05-25] MEDS: CEFTRIAXONE 1 GM/50 ML (PMX) 50 ML IVPB SCH (12:13)
--- NOTE | 2016-05-25 12:31 | PN ---
Date/Time of Note Date/Time of Note DATE: 05/25/16 TIME: 12:29 Assessment/Plan VTE Prophylaxis VTE Prophylaxis Intervention: SCD's Lines/Catheters IV C[facility]ter Type (from [facility]): Peripheral IV Urinary Cath still in place: Yes Reason Cath still needed: other (indicate) Assessment/Plan Chief Complaint/Hosp Course 1. Acute encephalopathy, most probably secondary hepatic encephalopathy. The patient will be continued on lactulose. The patient's brain CT scan was negative for any acute intracranial findings. 2. Paroxysmal atrial fibrillation. Cardiology following. Not a candidate for anticoagulation because of underlying encephalopathy and high risk for falls. 3. Chronic kidney disease. The patient has history of underlying chronic kidney disease. The patient's BUN and creatinine will be monitored closely. Nephrotoxic drugs will be used with caution. Nephrology on the case. 4. Lactic acidosis. Improving. Etiology unclear, most probably noninfectious in origin. The patient remains afebrile. Kwok cultures negative. Antibiotics will be discontinued. 5. Ascites. Status post paracentesis on 05/23/2016 with drainage of 10 L of fluid. 6. Hyperammonemia The patient will be continued on lactulose. The patient's mental status will be monitored closely. 7. Hypothyroidism. The patient's Synthroid will be continued. 8. Macrocytic anemia. Most probably anemia secondary to underlying liver cirrhosis. The patient's hemoglobin and hematocrit will be monitored closely. The patient will be transfused as needed. 9. Coagulopathy, most probably secondary to underlying liver cirrhosis. The patient will be monitored closely for any bleeding. 10. Fluids, electrolytes, and nutrition. Continue maintenance fluid. Clear liquids if the patient is completely awake and alert. 11. DVT prophylaxis. Bilateral sequential compression devices. 12. Gastrointestinal prophylaxis. Proton pump inhibitors. 13. Plan. Poor prognosis. Family aware of the poor prognosis. The patient continues to remain a DNR. Family refused hospice. We will switch the patient' s lactulose to oral. Will advance patient's diet. Case discussed with Dr. Molina. Problems: Subjective 24 Hr Interval Summary Free Text/Dictation The patient is more awake and alert today. Exam/Review of Systems Vital Signs Vitals Vital Signs Date Time Temp Pulse Resp B/P Pulse Ox O2 Delivery O2 Flow Rate FiO2 05/25/16 12:24 68 05/25/16 07:49 97.2 19 95/51 97 05/24/16 20:00 Nasal Cannula 2.0 Intake and Output 05/24/16 05/24/16 05/25/16 15:00 23:00 07:00 Intake Total 750 ml 850 ml Output Total 800 ml 550 ml Balance -50 ml 300 ml Exam GENERAL: This is an elderly 80-year-old male patient lying in bed in no apparent distress. HEENT: Head normocephalic and atraumatic. Eyes: Anicteric sclerae. Conjunctivae clear. ENT: Nasal septum is midline. Oral mucosa is dry. NECK: Supple. No JVD noticed. RESPIRATORY: Bilateral diminished breath sounds. Agonal breathing. CARDIAC: Regular rhythm with skipped beats. Systolic murmur. ABDOMEN: Distended. Ascites. Bowel sounds hypoactive in all 4 quadrants. GENITOURINARY: Deferred. EXTREMITIES: No cyanosis, no clubbing. Trace bilateral pedal edema. Peripheral pulses palpable. NEUROLOGIC: The patient is awake and alert. Follows commands. Oriented 1-2. Results Result Diagram: 05/25/16 0631 05/25/16 0631 Results 24 hrs Laboratory Tests Test 05/24/16 17:05 05/24/16 21:00 05/25/16 06:21 05/25/16 06:31 Bedside Glucose 129 128 Magnesium Level 2.3 Alanine Aminotransferase (ALT/SGPT) 29 Albumin 2.0 L Albumin/Globulin Ratio 0.64 Alkaline Phosphatase 61 Ammonia 61 H Anion Gap 14 Aspartate Amino Transf (AST/SGOT) 29 Basophils # 0.0 Basophils % 0.3 Blood Urea Nitrogen 41 H Calcium Level 8.6 Carbon Dioxide Level 20 L Chloride Level 109 Creatinine 2.75 H Direct Bilirubin 0.00 Eosinophils # 0.2 Eosinophils % 2.5 Globulin 3.10 Glucose Level 132 Hematocrit 22.9 L Hemoglobin 7.7 L Indirect Bilirubin 0.6 Lymphocytes # 1.7 Lymphocytes % 24.4 Mean Corpuscular Hemoglobin 35.8 H Mean Corpuscular Hemoglobin Concent 33.6 Mean Corpuscular Volume 106.5 H Mean Platelet Volume 11.4 H Monocytes # 0.4 Monocytes % 6.5 Neutrophils # 4.5 Neutrophils % 65.9 Nucleated Red Blood Cells # 0.0 Nucleated Red Blood Cells % 0.0 Platelet Count 53 L Potassium Level 3.5 Red Blood Count 2.15 L Red Cell Distribution Width 19.9 H Sodium Level 139 Total Bilirubin 0.6 Total Protein 5.1 L White Blood Count 6.8 # Test 05/25/16 06:51 05/25/16 08:04 05/25/16 11:45 Bedside Glucose 153 150 136 Medications Medications Current Medications Ondansetron HCl (Zofran Inj) 4 mg Q6H PRN IV NAUSEA AND/OR VOMITING Last administered on 05/25/16 02:00; Admin Dose 4 MG; Start 05/22/16 at 13:30 Acetaminophen/ Hydrocodone Bitart ([place] (5/325)) 1 tab Q6H PRN PO MODERATE PAIN LEVEL 4-6; Start 05/22/16 at 13:30 Magnesium Hydroxide (Milk Of Mag) 30 ml DAILY PRN PO CONSTIPATION; Start at 13:30 Bisacodyl (Dulcolax) 5 mg DAILY PRN PO CONSTIPATION; Start 05/22/16 at 13:30 Pantoprazole (Protonix Iv) 40 mg DAILY@06 IV Last administered on 05/25/16 06: 49; Admin Dose 40 MG; Start 05/23/16 at 06:00 Lactulose (Lactulose Enema) 100 ml Q8 AR Last administered on 05/25/16 06:51; Admin Dose 100 ML; Start 05/22/16 at 14:00 Hydralazine HCl (Apresoline) 10 mg Q6H PRN IV SBP>160; Start 05/22/16 at 14:00 Lamivudine (Epivir) 150 mg DAILY PO Last administered on 05/25/16 09:11; Admin Dose 150 MG; Start 05/23/16 at 09:00 Lubiprostone (Amitiza) 8 mcg BID PO Last administered on 05/25/16 09:05; Admin Dose 8 MCG; Start 05/22/16 at 21:00 Salmeterol Xinafoate/ Fluticasone (Advair 250/50 Diskus) 1 inh BID INH Last administered on 05/25/16 09:05; Admin Dose 1 INH; Start 05/22/16 at 21:00 Tamsulosin HCl 0.4 mg 0.4 mg HS PO Last administered on 05/23/16 22:33; Admin Dose 0.4 MG; Start 05/22/16 at 21:00 Ceftriaxone Sodium 50 ml @ 100 mls/hr Q24H IVPB Last administered on 05/25/16 12:13; Admin Dose 100 MLS/HR; Start 05/23/16 at 12:00 Dextrose/Sodium Chloride (D5-NS) 1,000 ml @ 50 mls/hr Q20H IV Last administered on 05/24/16 21:02; Admin Dose 50 MLS/HR; Start 05/22/16 at 17:00 Insulin Aspart (Novolog Insulin Pen) NOVOLOG *MILD* ALGORITHM Q6H SC Last administered on 05/24/16 13:16; Admin Dose 1 UNIT; Start 05/22/16 at 17:00 Miscellaneous Information 1 ea NOTE XX ; Start 05/22/16 at 17:00 Glucose (Glutose) 15 gm Q15M PRN PO DECREASED GLUCOSE; Start 05/22/16 at 17:00 Glucose (Glutose) 22.5 gm Q15M PRN PO DECREASED GLUCOSE; Start 05/22/16 at 17:00 Dextrose (D50w Syringe) 25 ml Q15M PRN IV DECREASED GLUCOSE; Start 05/22/16 at 17:00 Dextrose (D50w Syringe) 50 ml Q15M PRN IV DECREASED GLUCOSE; Start 05/22/16 at 17:00 Glucagon (Glucagen) 1 mg Q15M PRN IM DECREASED GLUCOSE; Start 05/22/16 at 17:00 Glucose (Glutose) 15 gm Q15M PRN BUCCAL DECREASED GLUCOSE; Start 05/22/16 at 17: 00 Pregabalin (Lyrica) 100 mg TID PO Last administered on 05/25/16 09:11; Admin Dose 100 MG; Start 05/24/16 at 13:00 Allopurinol 100 mg 100 mg DAILY PO Last administered on 05/25/16 09:11; Admin Dose 100 MG; Start 05/25/16 at 09:00 Albumin Human (Albumin Human 25%) 50 ml @ 100 mls/hr BID IV Last administered on 05/25/16 09:05; Admin Dose 100 MLS/HR; Start 05/24/16 at 21:30 Phytonadione (Vitamin K) 10 mg DAILY SC ; Start 05/25/16 at 11:00; Stop 05/27/16 at 09:01 KATYA PAUL NP May 25, 2016 12:30
[2016-05-25] MEDS: PHYTONADIONE 10 MG/ML INJ SC SCH (12:34)
--- NOTE | 2016-05-25 21:38 | CONS ---
Date/Time of Note Date/Time of Note DATE: 05/25/16 TIME: 21:37 Assessment/Plan Assessment/Plan Additional Assessment/Plan 1. 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 The patient is going into acute hepatorenal syndrome with oliguria and worsening renal failure. 2. History of liver cirrhosis secondary to hepatitis C. 3. History of hypertension. 4. History of diabetes mellitus. 5. History of atrial fibrillation. 6. Hypothyroidism. 7. Acute hepatic encephalopathy secondary to high ammonia. 8. Coagulopathy secondary to liver cirrhosis. PLAN: continue IV albumin BP still labile Lasix and spironolactone has been discontinued will follow up s/p family meeting, refused hospice care Consultation Date/Type/Reason Admit Date/Time May 22, 2016 at 11:30 Initial Consult Date May Type of Consultation: NEPHROLOGY Referring Provider: ARLETTE MERIDA MD 24 HR Interval Summary Free Text/Dictation s/p Meeting with pt family they refused Hospice, they already revoked hospice twice Exam/Review of Systems Vital Signs Vitals Vital Signs Date Time Temp Pulse Resp B/P Pulse Ox O2 Delivery O2 Flow Rate FiO2 05/25/16 20:42 05/25/16 20:00 98.0 18 99/57 95 05/25/16 07:30 Nasal Cannula 2.0 Intake and Output 05/24/16 05/24/16 05/25/16 15:00 23:00 07:00 Intake Total 750 ml 850 ml Output Total 800 ml 550 ml Balance -50 ml 300 ml Exam GENERAL: more alert today HEENT: Pupils equal, round, reactive to light and accommodation. No jaundice. NECK: Supple. HEART: S1, S2. Regular rhythm, no murmur. LUNGS: Decreased breath sounds at the right middle lobe, right lower lobe. No wheezing, no crackles. ABDOMEN: Soft, ascites is present, but nontender, nondistended. EXTREMITIES: 1 to 2+ pitting edema. NEUROLOGICAL: Uncooperative for exam. Results Result Diagram: 05/25/16 0631 05/25/16 0631 Results 24 hrs Laboratory Tests Test 05/25/16 06:21 05/25/16 06:31 05/25/16 06:51 05/25/16 08:04 Magnesium Level 2.3 Alanine Aminotransferase (ALT/SGPT) 29 Albumin 2.0 L Albumin/Globulin Ratio 0.64 Alkaline Phosphatase 61 Ammonia 61 H Anion Gap 14 Aspartate Amino Transf (AST/SGOT) 29 Basophils # 0.0 Basophils % 0.3 Blood Urea Nitrogen 41 H Calcium Level 8.6 Carbon Dioxide Level 20 L Chloride Level 109 Creatinine 2.75 H Direct Bilirubin 0.00 Eosinophils # 0.2 Eosinophils % 2.5 Globulin 3.10 Glucose Level 132 Hematocrit 22.9 L Hemoglobin 7.7 L Indirect Bilirubin 0.6 Lymphocytes # 1.7 Lymphocytes % 24.4 Mean Corpuscular Hemoglobin 35.8 H Mean Corpuscular Hemoglobin Concent 33.6 Mean Corpuscular Volume 106.5 H Mean Platelet Volume 11.4 H Monocytes # 0.4 Monocytes % 6.5 Neutrophils # 4.5 Neutrophils % 65.9 Nucleated Red Blood Cells # 0.0 Nucleated Red Blood Cells % 0.0 Platelet Count 53 L Potassium Level 3.5 Red Blood Count 2.15 L Red Cell Distribution Width 19.9 H Sodium Level 139 Total Bilirubin 0.6 Total Protein 5.1 L White Blood Count 6.8 # Bedside Glucose 153 150 Test 05/25/16 11:45 Bedside Glucose 136 Medications Medications Current Medications Ondansetron HCl (Zofran Inj) 4 mg Q6H PRN IV NAUSEA AND/OR VOMITING Last administered on 05/25/16 02:00; Admin Dose 4 MG; Start 05/22/16 at 13:30 Acetaminophen/ Hydrocodone Bitart ([place] (5/325)) 1 tab Q6H PRN PO MODERATE PAIN LEVEL 4-6; Start 05/22/16 at 13:30 Magnesium Hydroxide (Milk Of Mag) 30 ml DAILY PRN PO CONSTIPATION; Start at 13:30 Bisacodyl (Dulcolax) 5 mg DAILY PRN PO CONSTIPATION; Start 05/22/16 at 13:30 Pantoprazole (Protonix Iv) 40 mg DAILY@06 IV Last administered on 05/25/16 06: 49; Admin Dose 40 MG; Start 05/23/16 at 06:00 Hydralazine HCl (Apresoline) 10 mg Q6H PRN IV SBP>160; Start 05/22/16 at 14:00 Lamivudine (Epivir) 150 mg DAILY PO Last administered on 05/25/16 09:11; Admin Dose 150 MG; Start 05/23/16 at 09:00 Lubiprostone (Amitiza) 8 mcg BID PO Last administered on 05/25/16 09:05; Admin Dose 8 MCG; Start 05/22/16 at 21:00 Salmeterol Xinafoate/ Fluticasone (Advair 250/50 Diskus) 1 inh BID INH Last administered on 05/25/16 09:05; Admin Dose 1 INH; Start 05/22/16 at 21:00 Tamsulosin HCl 0.4 mg 0.4 mg HS PO Last administered on 05/23/16 22:33; Admin Dose 0.4 MG; Start 05/22/16 at 21:00 Dextrose/Sodium Chloride (D5-NS) 1,000 ml @ 50 mls/hr Q20H IV Last administered on 05/24/16 21:02; Admin Dose 50 MLS/HR; Start 05/22/16 at 17:00 Insulin Aspart (Novolog Insulin Pen) NOVOLOG *MILD* ALGORITHM Q6H SC Last administered on 05/24/16 13:16; Admin Dose 1 UNIT; Start 05/22/16 at 17:00 Miscellaneous Information 1 ea NOTE XX ; Start 05/22/16 at 17:00 Glucose (Glutose) 15 gm Q15M PRN PO DECREASED GLUCOSE; Start 05/22/16 at 17:00 Glucose (Glutose) 22.5 gm Q15M PRN PO DECREASED GLUCOSE; Start 05/22/16 at 17:00 Dextrose (D50w Syringe) 25 ml Q15M PRN IV DECREASED GLUCOSE; Start 05/22/16 at 17:00 Dextrose (D50w Syringe) 50 ml Q15M PRN IV DECREASED GLUCOSE; Start 05/22/16 at 17:00 Glucagon (Glucagen) 1 mg Q15M PRN IM DECREASED GLUCOSE; Start 05/22/16 at 17:00 Glucose (Glutose) 15 gm Q15M PRN BUCCAL DECREASED GLUCOSE; Start 05/22/16 at 17: 00 Pregabalin (Lyrica) 100 mg TID PO Last administered on 05/25/16 14:49; Admin Dose 100 MG; Start 05/24/16 at 13:00 Allopurinol 100 mg 100 mg DAILY PO Last administered on 05/25/16 09:11; Admin Dose 100 MG; Start 3/9/17 at 09:00 Albumin Human (Albumin Human 25%) 50 ml @ 100 mls/hr BID IV Last administered on 05/25/16 09:05; Admin Dose 100 MLS/HR; Start 05/24/16 at 21:30 Phytonadione (Vitamin K) 10 mg DAILY SC Last administered on 05/25/16 12:34; Admin Dose 10 MG; Start 05/25/16 at 11:00; Stop 05/27/16 at 09:01 Lactulose (Enulose) 20 gm Q8 PO ; Start 05/25/16 at 22:00 SANIA GRAHAM MD May 25, 2016 21:38
[2016-05-25] MEDS: TAMSULOSIN (SR) 0.4 MG CAP PO SCH (22:20)
[2016-05-25] MEDS: LACTULOSE 30ML CUP PO SCH (22:34)
[2016-05-26 01:00] VITALS: BP 99/55; RESP 19
[2016-05-26] MEDS: DEXTROSE 5%-0.9% NACL 1,000 ML IV SCH ×2 (04:55→21:00)
[2016-05-26] MEDS: LACTULOSE 30ML CUP PO SCH ×3 (05:37→22:02)
[2016-05-26] MEDS: PANTOPRAZOLE 40 MG INJ IV SCH (05:37)
[2016-05-26] MEDS: LEVOTHYROXINE 25 MCG TAB PO SCH (05:37)
[2016-05-26] MEDS: INSULIN ASPART [NOVOLOG] 3 ML PEN SC SCH ×4 (07:30→21:00)
[2016-05-26 08:28] LABS: PROTEIN URINE 25.6 mg/dl (0.0-9.9)
[2016-05-26 08:30] LABS: PROTEIN/CREAT RATIO 0.22 RATIO
[2016-05-26] MEDS: PHYTONADIONE 10 MG/ML INJ SC SCH (09:00)
[2016-05-26] MEDS: LUBIPROSTONE 8 MCG CAPSULE PO SCH ×2 (09:00→22:02)
[2016-05-26] MEDS: SALMETEROL/FLUTICASONE 250/50 INHA INH SCH ×2 (09:00→21:00)
[2016-05-26] MEDS: PREGABALIN 100 MG CAP PO SCH ×3 (09:00→22:02)
[2016-05-26] MEDS: ALLOPURINOL 100 MG TAB PO SCH (09:00)
[2016-05-26] MEDS: ALBUMIN HUMAN 25% 50 ML IV SCH ×3 (09:00→21:58)
[2016-05-26] MEDS: LAMIVUDINE 150 MG TAB PO SCH (09:00)
[2016-05-26 10:18] VITALS: BP 125/60; RESP 17
--- NOTE | 2016-05-26 12:07 | CONS ---
Date/Time of Note Date/Time of Note DATE: 05/26/16 TIME: 12:06 Assessment/Plan Assessment/Plan Additional Assessment/Plan 1. 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 The patient is going into acute hepatorenal syndrome with oliguria and worsening renal failure. 2. History of liver cirrhosis secondary to hepatitis C. 3. History of hypertension. 4. History of diabetes mellitus. 5. History of atrial fibrillation. 6. Hypothyroidism. 7. Acute hepatic encephalopathy secondary to high ammonia. 8. Coagulopathy secondary to liver cirrhosis. PLAN: continue IV albumin BP still labile Lasix and spironolactone has been discontinued, no labs today to review will follow up s/p family meeting, refused hospice care Consultation Date/Type/Reason Admit Date/Time May 22, 2016 at 11:30 Initial Consult Date May Type of Consultation: NEPHROLOGY Reason for Consultation acute kidney injury,hepatorenal syndrome Referring Provider: ARLETTE MERIDA MD 24 HR Interval Summary Free Text/Dictation No labs today, pt more stable, downgraded to med/surge floor Exam/Review of Systems Vital Signs Vitals Vital Signs Date Time Temp Pulse Resp B/P Pulse Ox O2 Delivery O2 Flow Rate FiO2 05/26/16 10:18 74 17 125/60 05/26/16 01:00 98.0 97 05/25/16 23:00 Nasal Cannula 2.0 Intake and Output 05/25/16 05/25/16 05/26/16 15:00 23:00 07:00 Intake Total 300 ml 750 ml Output Total 800 ml 450 ml Balance -500 ml 300 ml Exam GENERAL: more alert today HEENT: Pupils equal, round, reactive to light and accommodation. No jaundice. NECK: Supple. HEART: S1, S2. Regular rhythm, no murmur. LUNGS: Decreased breath sounds at the right middle lobe, right lower lobe. No wheezing, no crackles. ABDOMEN: Soft, ascites is present, but nontender, nondistended. EXTREMITIES: 1 to 2+ pitting edema. NEUROLOGICAL: Uncooperative for exam. Results Result Diagram: 05/25/16 0631 05/25/16 0631 Results 24 hrs Laboratory Tests Test 05/25/16 22:37 05/26/16 04:30 05/26/16 11:42 Bedside Glucose 175 162 Urine Eosinophils % 0.0 Urine Protein/Creatinine Ratio 0.22 Urine Random Creatinine 113.59 Urine Random Sodium < 13 L Urine Total Protein 25.6 H Medications Medications Current Medications Ondansetron HCl (Zofran Inj) 4 mg Q6H PRN IV NAUSEA AND/OR VOMITING Last administered on 05/25/16 02:00; Admin Dose 4 MG; Start 05/22/16 at 13:30 Acetaminophen/ Hydrocodone Bitart ([place] (5/325)) 1 tab Q6H PRN PO MODERATE PAIN LEVEL 4-6; Start 05/22/16 at 13:30 Magnesium Hydroxide (Milk Of Mag) 30 ml DAILY PRN PO CONSTIPATION; Start at 13:30 Bisacodyl (Dulcolax) 5 mg DAILY PRN PO CONSTIPATION; Start 05/22/16 at 13:30 Pantoprazole (Protonix Iv) 40 mg DAILY@06 IV Last administered on 05/26/16 05: 37; Admin Dose 40 MG; Start 05/23/16 at 06:00 Hydralazine HCl (Apresoline) 10 mg Q6H PRN IV SBP>160; Start 05/22/16 at 14:00 Lamivudine (Epivir) 150 mg DAILY PO Last administered on 05/25/16 09:11; Admin Dose 150 MG; Start 05/23/16 at 09:00 Lubiprostone (Amitiza) 8 mcg BID PO Last administered on 05/25/16 22:20; Admin Dose 8 MCG; Start 05/22/16 at 21:00 Salmeterol Xinafoate/ Fluticasone (Advair 250/50 Diskus) 1 inh BID INH Last administered on 05/25/16 22:19; Admin Dose 1 INH; Start 05/22/16 at 21:00 Tamsulosin HCl 0.4 mg 0.4 mg HS PO Last administered on 05/25/16 22:20; Admin Dose 0.4 MG; Start 05/22/16 at 21:00 Dextrose/Sodium Chloride (D5-NS) 1,000 ml @ 50 mls/hr Q20H IV Last administered on 05/26/16 04:55; Admin Dose 50 MLS/HR; Start 05/22/16 at 17:00 Miscellaneous Information 1 ea NOTE XX ; Start 05/22/16 at 17:00 Glucose (Glutose) 15 gm Q15M PRN PO DECREASED GLUCOSE; Start 05/22/16 at 17:00 Glucose (Glutose) 22.5 gm Q15M PRN PO DECREASED GLUCOSE; Start 05/22/16 at 17:00 Dextrose (D50w Syringe) 25 ml Q15M PRN IV DECREASED GLUCOSE; Start 05/22/16 at 17:00 Dextrose (D50w Syringe) 50 ml Q15M PRN IV DECREASED GLUCOSE; Start 05/22/16 at 17:00 Glucagon (Glucagen) 1 mg Q15M PRN IM DECREASED GLUCOSE; Start 05/22/16 at 17:00 Glucose (Glutose) 15 gm Q15M PRN BUCCAL DECREASED GLUCOSE; Start 05/22/16 at 17: 00 Pregabalin (Lyrica) 100 mg TID PO Last administered on 05/25/16 22:20; Admin Dose 100 MG; Start 05/24/16 at 13:00 Allopurinol 100 mg 100 mg DAILY PO Last administered on 05/25/16 09:11; Admin Dose 100 MG; Start 05/25/16 at 09:00 Albumin Human (Albumin Human 25%) 50 ml @ 100 mls/hr BID IV Last administered on 05/26/16 11:34; Admin Dose 100 MLS/HR; Start 05/24/16 at 21:30 Phytonadione (Vitamin K) 10 mg DAILY SC Last administered on 05/25/16 12:34; Admin Dose 10 MG; Start 05/25/16 at 11:00; Stop 05/27/16 at 09:01 Lactulose (Enulose) 20 gm Q8 PO Last administered on 05/26/16 05:37; Admin Dose 20 GM; Start 05/25/16 at 22:00 SANIA GRAHAM MD May 26, 2016 12:07
--- NOTE | 2016-05-26 16:46 | PN ---
Date/Time of Note Date/Time of Note DATE: 05/26/16 TIME: 16:42 Assessment/Plan VTE Prophylaxis VTE Prophylaxis Intervention: SCD's Lines/Catheters IV [facility] Type (from [facility] [place] Urinary Cath still in place: Yes Reason Cath still needed: terminal illness/intractable pain Assessment/Plan Chief Complaint/Hosp Course 1. Acute encephalopathy, most probably secondary to hepatic encephalopathy. The patient will be continued on lactulose. The patient's brain CT scan was negative for any acute intracranial findings. 2. Paroxysmal atrial fibrillation. Cardiology following. Not a candidate for anticoagulation because of underlying encephalopathy and high risk for falls. 3. Chronic kidney disease. The patient has history of underlying chronic kidney disease. The patient's BUN and creatinine will be monitored closely. Nephrotoxic drugs will be used with caution. Nephrology on the case. 4. Ascites. Status post paracentesis on 05/23/2016 with drainage of 10 L of fluid. 5. Hyperammonemia The patient will be continued on lactulose. The patient's mental status will be monitored closely. 6. Hypothyroidism. The patient's Synthroid will be continued. 7. Macrocytic anemia. Most probably anemia secondary to underlying liver cirrhosis. The patient's hemoglobin and hematocrit will be monitored closely. The patient will be transfused as needed. 8. Coagulopathy, most probably secondary to underlying liver cirrhosis. The patient will be monitored closely for any bleeding. 9. Fluids, electrolytes, and nutrition. Continue maintenance fluid. Continue soft diet if the patient is completely awake and alert. 10. DVT prophylaxis. Bilateral sequential compression devices. 11. Gastrointestinal prophylaxis. Proton pump inhibitors. 12. Plan. Poor prognosis. Family aware of the poor prognosis. The patient continues to remain a DNR. Family refused hospice. Case discussed with Dr. Molina. Problems: Subjective 24 Hr Interval Summary Free Text/Dictation The patient refused a.m. labs, on his medications. The patient refused paracentesis. The patient is more confused and acting paranoid. Exam/Review of Systems Vital Signs Vitals Vital Signs Date Time Temp Pulse Resp B/P Pulse Ox O2 Delivery O2 Flow Rate FiO2 05/26/16 10:18 74 17 125/60 05/26/16 09:00 Nasal Cannula 2.0 05/26/16 01:00 98.0 97 Intake and Output 05/25/16 05/25/16 05/26/16 15:00 23:00 07:00 Intake Total 300 ml 750 ml Output Total 800 ml 450 ml Balance -500 ml 300 ml Exam GENERAL: This is an elderly 80-year-old male patient lying in bed in no apparent distress. HEENT: Head normocephalic and atraumatic. Eyes: Anicteric sclerae. Conjunctivae clear. ENT: Nasal septum is midline. Oral mucosa is dry. NECK: Supple. No JVD noticed. RESPIRATORY: Bilateral diminished breath sounds. Agonal breathing. CARDIAC: Regular rhythm with skipped beats. Systolic murmur. ABDOMEN: Distended. Ascites. Bowel sounds hypoactive in all 4 quadrants. GENITOURINARY: Deferred. EXTREMITIES: No cyanosis, no clubbing. Trace bilateral pedal edema. Peripheral pulses palpable. NEUROLOGIC: The patient is awake and alert. Follows commands. Oriented 1. Results Result Diagram: 05/25/1663005/25/16630 Results 24 hrs Laboratory Tests Test 05/25/16 22:37 05/26/16 04:30 05/26/16 11:42 Bedside Glucose 175 162 Urine Eosinophils % 0.0 Urine Protein/Creatinine Ratio 0.22 Urine Random Creatinine 113.59 Urine Random Sodium < 13 L Urine Total Protein 25.6 H Medications Medications Current Medications Ondansetron HCl (Zofran Inj) 4 mg Q6H PRN IV NAUSEA AND/OR VOMITING Last administered on 05/25/16 02:00; Admin Dose 4 MG; Start 05/22/16 at 13:30 Acetaminophen/ Hydrocodone Bitart ([place] (5/325)) 1 tab Q6H PRN PO MODERATE PAIN LEVEL 4-6; Start 05/22/16 at 13:30 Magnesium Hydroxide (Milk Of Mag) 30 ml DAILY PRN PO CONSTIPATION; Start at 13:30 Bisacodyl (Dulcolax) 5 mg DAILY PRN PO CONSTIPATION; Start 05/22/16 at 13:30 Pantoprazole (Protonix Iv) 40 mg DAILY@06 IV Last administered on 05/26/16 05: 37; Admin Dose 40 MG; Start 05/23/16 at 06:00 Hydralazine HCl (Apresoline) 10 mg Q6H PRN IV SBP>160; Start 05/22/16 at 14:00 Lamivudine (Epivir) 150 mg DAILY PO Last administered on 05/25/16 09:11; Admin Dose 150 MG; Start 05/23/16 at 09:00 Lubiprostone (Amitiza) 8 mcg BID PO Last administered on 05/25/16 22:20; Admin Dose 8 MCG; Start 05/22/16 at 21:00 Salmeterol Xinafoate/ Fluticasone (Advair 250/50 Diskus) 1 inh BID INH Last administered on 05/25/16 22:19; Admin Dose 1 INH; Start 05/22/16 at 21:00 Tamsulosin HCl 0.4 mg 0.4 mg HS PO Last administered on 05/25/16 22:20; Admin Dose 0.4 MG; Start 05/22/16 at 21:00 Dextrose/Sodium Chloride (D5-NS) 1,000 ml @ 50 mls/hr Q20H IV Last administered on 05/26/16 04:55; Admin Dose 50 MLS/HR; Start 05/22/16 at 17:00 Miscellaneous Information 1 ea NOTE XX ; Start 05/22/16 at 17:00 Glucose (Glutose) 15 gm Q15M PRN PO DECREASED GLUCOSE; Start 05/22/16 at 17:00 Glucose (Glutose) 22.5 gm Q15M PRN PO DECREASED GLUCOSE; Start 05/22/16 at 17:00 Dextrose (D50w Syringe) 25 ml Q15M PRN IV DECREASED GLUCOSE; Start 05/22/16 at 17:00 Dextrose (D50w Syringe) 50 ml Q15M PRN IV DECREASED GLUCOSE; Start 05/22/16 at 17:00 Glucagon (Glucagen) 1 mg Q15M PRN IM DECREASED GLUCOSE; Start 05/22/16 at 17:00 Glucose (Glutose) 15 gm Q15M PRN BUCCAL DECREASED GLUCOSE; Start 05/22/16 at 17: 00 Pregabalin (Lyrica) 100 mg TID PO Last administered on 05/25/16 22:20; Admin Dose 100 MG; Start 05/24/16 at 13:00 Allopurinol 100 mg 100 mg DAILY PO Last administered on 05/25/16 09:11; Admin Dose 100 MG; Start 05/25/16 at 09:00 Albumin Human (Albumin Human 25%) 50 ml @ 100 mls/hr BID IV Last administered on 05/26/16 11:34; Admin Dose 100 MLS/HR; Start 05/24/16 at 21:30 Phytonadione (Vitamin K) 10 mg DAILY SC Last administered on 05/25/16 12:34; Admin Dose 10 MG; Start 05/25/16 at 11:00; Stop 05/27/16 at 09:01 Lactulose (Enulose) 20 gm Q8 PO Last administered on 05/26/16 05:37; Admin Dose 20 GM; Start 05/25/16 at 22:00 KATYA PAUL NP May 26, 2016 16:46
[2016-05-26 19:59] VITALS: BP 113/58; RESP 18
--- NOTE | 2016-05-26 21:01 | PN ---
DATE: 05/26/2016 SUBJECTIVE: No new cardiac events. The patient off of telemetry now. Less lethargic and responds but is still confused. He has ____ refused medication and laboratory. ____ also refused by him as well. MEDICATIONS: Reviewed. PHYSICAL EXAMINATION: VITAL SIGNS: Temperature 98, heart rate of 74, blood pressure 125/60, respiratory rate of 17, satur ating 95%. HEENT: Normocephalic, atraumatic. Pupils are equal. CARDIOVASCULAR: Regular rate and rhythm, systolic murmur. PULMONARY: No wheezes. GASTROINTESTINAL: Distended, positive for ascites. EXTREMITIES: Positive edema. NEUROLOGIC: Awake. PSYCHIATRIC: At this point appeared to be calm. LABORATORY: Glucose 145. ASSESSMENT AND PLAN: 1. Bradycardia, currently improved significantly. 2. Hepatic encephalopathy, improved now. 3. Liver cirrhosis. 4. Renal failure. 5. Hypertension, under control. 6. Thyroid disorder. 7. Diabetes. RECOMMENDATIONS: The patient off of telemetry now. ____ corrected as needed as long as he allows u s to check the electrolytes. Conservative medical therapy. CODE STATUS DNR. Dictated By: ENID TAYLOR MD AV/WAN Conf#: [id number] DID#: [id number] CC: KATYA PAUL NP;*End*
[2016-05-26] MEDS: TAMSULOSIN (SR) 0.4 MG CAP PO SCH (22:02)
[2016-05-27] MEDS: LEVOTHYROXINE 25 MCG TAB PO SCH (05:12)
[2016-05-27] MEDS: LACTULOSE 30ML CUP PO SCH ×3 (05:12→21:29)
[2016-05-27] MEDS: PANTOPRAZOLE 40 MG INJ IV SCH (05:12)
[2016-05-27 06:10] LABS: ADD SCAN DIFF NO
[2016-05-27 06:16] LABS: ABNORMAL IP MESSAGE 1; BASOPHILS % 0.8 % (0.0-2.0); EOSINOPHILS # 0.2 10^3/ul (0.0-0.5); EOSINOPHILS % 5.8 % (0.0-7.0); HEMATOCRIT 23.1 % (42.0-52.0); HEMOGLOBIN 7.7 g/dl (14.0-18.0); LYMPHOCYTES # 1.9 10^3/ul (0.8-2.9); LYMPHOCYTES % 47.2 % (15.0-51.0); MEAN CORPUSCULAR HEMOGLOBIN 35.5 pg (29.0-33.0); MEAN CORPUSCULAR HGB CONC 33.3 g/dl (32.0-37.0); MEAN CORPUSCULAR VOLUME 106.5 fl (82.0-101.0); MEAN PLATELET VOLUME 10.4 fl (7.4-10.4); MONOCYTE # 0.4 10^3/ul (0.3-0.9); MONOCYTES % 9.9 % (0.0-11.0); NEUTROPHIL # 1.4 10^3/ul (1.6-7.5); NEUTROPHILS % 35.8 % (39.0-77.0); PLATELET COUNT 37 10^3/UL (140-415); RED BLOOD COUNT 2.17 10^6/ul (4.70-6.10); RED CELL DISTRIBUTION WIDTH 19.8 % (11.5-14.5); WHITE BLOOD COUNT 3.9 10^3/ul (4.8-10.8)
[2016-05-27 06:27] LABS: POTASSIUM 3.7 mmol/L (3.5-5.1)
[2016-05-27 06:30] LABS: CREATININE 2.27 mg/dl (0.61-1.24)
[2016-05-27 06:31] LABS: CALCIUM 8.7 mg/dl (8.4-10.2)
[2016-05-27 06:42] LABS: MAGNESIUM 2.4 mg/dl (1.7-2.5); PHOSPHORUS 2.8 mg/dl (2.5-4.9)
[2016-05-27 07:30] VITALS: BP 88/50; RESP 18
[2016-05-27 08:00] VITALS: BP 121/56
[2016-05-27] MEDS: INSULIN ASPART [NOVOLOG] 3 ML PEN SC SCH ×4 (08:36→21:00)
[2016-05-27] MEDS: SALMETEROL/FLUTICASONE 250/50 INHA INH SCH ×2 (08:42→21:00)
[2016-05-27] MEDS: ALBUMIN HUMAN 25% 50 ML IV SCH ×2 (08:43→21:17)
[2016-05-27] MEDS: DEXTROSE 5%-0.9% NACL 1,000 ML IV SCH (08:49)
[2016-05-27] MEDS: LAMIVUDINE 150 MG TAB PO SCH (08:57)
[2016-05-27] MEDS: ALLOPURINOL 100 MG TAB PO SCH (08:57)
[2016-05-27] MEDS: PHYTONADIONE 10 MG/ML INJ SC SCH (08:58)
[2016-05-27] MEDS: LUBIPROSTONE 8 MCG CAPSULE PO SCH ×2 (08:59→21:00)
[2016-05-27] MEDS: PREGABALIN 100 MG CAP PO SCH ×3 (08:59→21:00)
[2016-05-27 11:04] LABS: INR 1.99; PROTIME 22.8 Sec (12.2-14.2); PT RATIO 1.8
--- NOTE | 2016-05-27 12:13 | CONS ---
Date/Time of Note Date/Time of Note DATE: 05/27/16 TIME: 12:11 Assessment/Plan Assessment/Plan Additional Assessment/Plan 1. 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 The patient is going into acute hepatorenal syndrome with oliguria and worsening renal failure. 2. History of liver cirrhosis secondary to hepatitis C. 3. History of hypertension. 4. History of diabetes mellitus. 5. History of atrial fibrillation. 6. Hypothyroidism. 7. Acute hepatic encephalopathy secondary to high ammonia. 8. Coagulopathy secondary to liver cirrhosis. PLAN: continue IV albumin BP still labile Lasix and spironolactone has been discontinued, no labs today to review change protonix to PO pepcid awaiting paracentesis will follow up s/p family meeting, refused hospice care Consultation Date/Type/Reason Admit Date/Time May 22, 2016 at 11:30 Initial Consult Date May Type of Consultation: NEPHROLOGY Reason for Consultation acute kidney injury, ESLD, Hepatorenal syndrome Referring Provider: ARLETTE MERIDA MD 24 HR Interval Summary Free Text/Dictation pt is very upset and agitated, refused accucheck Exam/Review of Systems Vital Signs Vitals Vital Signs Date Time Temp Pulse Resp B/P Pulse Ox O2 Delivery O2 Flow Rate FiO2 05/27/16 08:00 Nasal Cannula 2.0 05/27/16 08:00 121/56 05/27/16 07:30 98.3 67 18 97 Intake and Output 05/26/16 05/26/16 05/27/16 15:00 23:00 07:00 Intake Total 50 ml 1425 ml 760 ml Output Total 700 ml 300 ml Balance 50 ml 725 ml 460 ml Exam GENERAL: more alert today HEENT: Pupils equal, round, reactive to light and accommodation. No jaundice. NECK: Supple. HEART: S1, S2. Regular rhythm, no murmur. LUNGS: Decreased breath sounds at the right middle lobe, right lower lobe. No wheezing, no crackles. ABDOMEN: Soft, ascites is present, but nontender, nondistended. EXTREMITIES: 1 to 2+ pitting edema. NEUROLOGICAL: Uncooperative for exam. Results Result Diagram: 05/27/16 0451 05/27/16 0458 Results 24 hrs Laboratory Tests Test 05/26/16 16:45 05/26/16 21:51 05/27/16 04:51 05/27/16 04:58 Bedside Glucose 145 139 Ammonia 87 H Basophils # 0.0 Basophils % 0.8 Eosinophils # 0.2 Eosinophils % 5.8 Hematocrit 23.1 L Hemoglobin 7.7 L Lymphocytes # 1.9 Lymphocytes % 47.2 Magnesium Level 2.4 Mean Corpuscular Hemoglobin 35.5 H Mean Corpuscular Hemoglobin Concent 33.3 Mean Corpuscular Volume 106.5 H Mean Platelet Volume 10.4 Monocytes # 0.4 Monocytes % 9.9 Neutrophils # 1.4 L Neutrophils % 35.8 L Nucleated Red Blood Cells # 0.0 Nucleated Red Blood Cells % 0.0 Phosphorus Level 2.8 Platelet Count 37 #L Red Blood Count 2.17 L Red Cell Distribution Width 19.8 H White Blood Count 3.9 #L Anion Gap 12 Blood Urea Nitrogen 35 H Calcium Level 8.7 Carbon Dioxide Level 21 Chloride Level 112 H Creatinine 2.27 H Glucose Level 130 Potassium Level 3.7 Sodium Level 141 Test 05/27/16 07:45 05/27/16 10:38 Bedside Glucose 149 INR International Normalized Ratio 1.99 Prothrombin Time 22.8 H Prothrombin Time Ratio 1.8 Medications Medications Current Medications Ondansetron HCl (Zofran Inj) 4 mg Q6H PRN IV NAUSEA AND/OR VOMITING Last administered on 05/25/16 02:00; Admin Dose 4 MG; Start 05/22/16 at 13:30 Acetaminophen/ Hydrocodone Bitart ([place] (5/325)) 1 tab Q6H PRN PO MODERATE PAIN LEVEL 4-6; Start 05/22/16 at 13:30 Magnesium Hydroxide (Milk Of Mag) 30 ml DAILY PRN PO CONSTIPATION; Start at 13:30 Bisacodyl (Dulcolax) 5 mg DAILY PRN PO CONSTIPATION; Start 05/22/16 at 13:30 Hydralazine HCl (Apresoline) 10 mg Q6H PRN IV SBP>160; Start 05/22/16 at 14:00 Lamivudine (Epivir) 150 mg DAILY PO Last administered on 05/27/16 08:57; Admin Dose 150 MG; Start 05/23/16 at 09:00 Lubiprostone (Amitiza) 8 mcg BID PO Last administered on 05/27/16 08:59; Admin Dose 8 MCG; Start 05/22/16 at 21:00 Salmeterol Xinafoate/ Fluticasone (Advair 250/50 Diskus) 1 inh BID INH Last administered on 05/25/16 22:19; Admin Dose 1 INH; Start 05/22/16 at 21:00 Tamsulosin HCl 0.4 mg 0.4 mg HS PO Last administered on 05/26/16 22:02; Admin Dose 0.4 MG; Start 05/22/16 at 21:00 Dextrose/Sodium Chloride (D5-NS) 1,000 ml @ 50 mls/hr Q20H IV Last administered on 05/27/16 08:49; Admin Dose 50 MLS/HR; Start 05/22/16 at 17:00 Miscellaneous Information 1 ea NOTE XX ; Start 05/22/16 at 17:00 Glucose (Glutose) 15 gm Q15M PRN PO DECREASED GLUCOSE; Start 05/22/16 at 17:00 Glucose (Glutose) 22.5 gm Q15M PRN PO DECREASED GLUCOSE; Start 05/22/16 at 17:00 Dextrose (D50w Syringe) 25 ml Q15M PRN IV DECREASED GLUCOSE; Start 05/22/16 at 17:00 Dextrose (D50w Syringe) 50 ml Q15M PRN IV DECREASED GLUCOSE; Start 05/22/16 at 17:00 Glucagon (Glucagen) 1 mg Q15M PRN IM DECREASED GLUCOSE; Start 05/22/16 at 17:00 Glucose (Glutose) 15 gm Q15M PRN BUCCAL DECREASED GLUCOSE; Start 05/22/16 at 17: 00 Pregabalin (Lyrica) 100 mg TID PO Last administered on 05/27/16 08:59; Admin Dose 100 MG; Start 05/24/16 at 13:00 Allopurinol 100 mg 100 mg DAILY PO Last administered on 05/27/16 08:57; Admin Dose 100 MG; Start 05/25/16 at 09:00 Albumin Human (Albumin Human 25%) 50 ml @ 100 mls/hr BID IV Last administered on 05/27/16 08:43; Admin Dose 100 MLS/HR; Start 05/24/16 at 21:30 Lactulose (Enulose) 20 gm Q8 PO Last administered on 05/27/16 05:12; Admin Dose 20 GM; Start 05/25/16 at 22:00 Famotidine (Pepcid) 20 mg DAILY PO ; Start 05/27/16 at 21:00 SANIA GRAHAM MD May 27, 2016 12:12
--- NOTE | 2016-05-27 12:31 | PN ---
Date/Time of Note Date/Time of Note DATE: 05/27/16 TIME: 12:29 Assessment/Plan VTE Prophylaxis VTE Prophylaxis Intervention: SCD's Lines/Catheters IV C[facility]ter Type (from [facility]): Peripheral IV Urinary Cath still in place: Yes Reason Cath still needed: terminal illness/intractable pain Assessment/Plan Chief Complaint/Hosp Course 1. Acute encephalopathy, most probably secondary to hepatic encephalopathy. Largely resolved. The patient will be continued on lactulose. The patient's brain CT scan was negative for any acute intracranial findings. 2. Paroxysmal atrial fibrillation. Cardiology following. Not a candidate for anticoagulation because of underlying encephalopathy and high risk for falls. 3. Chronic kidney disease. The patient has history of underlying chronic kidney disease. The patient's BUN and creatinine will be monitored closely. Nephrotoxic drugs will be used with caution. Nephrology on the case. 4. Ascites. Status post paracentesis on 05/23/2016 with drainage of 10 L of fluid. 5. Hyperammonemia The patient will be continued on lactulose. The patient's mental status will be monitored closely. 6. Hypothyroidism. The patient's Synthroid will be continued. 7. Macrocytic anemia. Most probably anemia secondary to underlying liver cirrhosis. The patient's hemoglobin and hematocrit will be monitored closely. The patient will be transfused as needed. 8. Coagulopathy, most probably secondary to underlying liver cirrhosis. The patient will be monitored closely for any bleeding. 9. Fluids, electrolytes, and nutrition. Continue maintenance fluid. Continue soft diet if the patient is completely awake and alert. 10. DVT prophylaxis. Bilateral sequential compression devices. 11. Gastrointestinal prophylaxis. Proton pump inhibitors. 12. Plan. Repeat paracentesis. Poor prognosis. Family aware of the poor prognosis. The patient continues to remain a DNR. Family refused hospice. Case discussed with Dr. Molina. Problems: Subjective 24 Hr Interval Summary Free Text/Dictation Patient very upset today. Refused blood sugar checks. Exam/Review of Systems Vital Signs Vitals Vital Signs Date Time Temp Pulse Resp B/P Pulse Ox O2 Delivery O2 Flow Rate FiO2 05/27/16 08:00 Nasal Cannula 2.0 05/27/16 08:00 121/56 05/27/16 07:30 98.3 67 18 97 Intake and Output 05/26/16 05/26/16 05/27/16 15:00 23:00 07:00 Intake Total 50 ml 1425 ml 760 ml Output Total 700 ml 300 ml Balance 50 ml 725 ml 460 ml Exam GENERAL: This is an elderly 80-year-old male patient lying in bed in no apparent distress. HEENT: Head normocephalic and atraumatic. Eyes: Anicteric sclerae. Conjunctivae clear. ENT: Nasal septum is midline. Oral mucosa is dry. NECK: Supple. No JVD noticed. RESPIRATORY: Bilateral diminished breath sounds. Agonal breathing. CARDIAC: Regular rhythm with skipped beats. Systolic murmur. ABDOMEN: Distended. Ascites. Bowel sounds hypoactive in all 4 quadrants. GENITOURINARY: Deferred. EXTREMITIES: No cyanosis, no clubbing. Trace bilateral pedal edema. Peripheral pulses palpable. NEUROLOGIC: The patient is awake and alert. Follows commands. Oriented 2. Results Result Diagram: 05/27/16 0451 05/27/16 0458 Results 24 hrs Laboratory Tests Test 05/26/16 16:45 05/26/16 21:51 05/27/16 04:51 05/27/16 04:58 Bedside Glucose 145 139 Ammonia 87 H Basophils # 0.0 Basophils % 0.8 Eosinophils # 0.2 Eosinophils % 5.8 Hematocrit 23.1 L Hemoglobin 7.7 L Lymphocytes # 1.9 Lymphocytes % 47.2 Magnesium Level 2.4 Mean Corpuscular Hemoglobin 35.5 H Mean Corpuscular Hemoglobin Concent 33.3 Mean Corpuscular Volume 106.5 H Mean Platelet Volume 10.4 Monocytes # 0.4 Monocytes % 9.9 Neutrophils # 1.4 L Neutrophils % 35.8 L Nucleated Red Blood Cells # 0.0 Nucleated Red Blood Cells % 0.0 Phosphorus Level 2.8 Platelet Count 37 #L Red Blood Count 2.17 L Red Cell Distribution Width 19.8 H White Blood Count 3.9 #L Anion Gap 12 Blood Urea Nitrogen 35 H Calcium Level 8.7 Carbon Dioxide Level 21 Chloride Level 112 H Creatinine 2.27 H Glucose Level 130 Potassium Level 3.7 Sodium Level 141 Test 05/27/16 07:45 05/27/16 10:38 Bedside Glucose 149 INR International Normalized Ratio 1.99 Prothrombin Time 22.8 H Prothrombin Time Ratio 1.8 Medications Medications Current Medications Ondansetron HCl (Zofran Inj) 4 mg Q6H PRN IV NAUSEA AND/OR VOMITING Last administered on 05/25/16 02:00; Admin Dose 4 MG; Start 05/22/16 at 13:30 Acetaminophen/ Hydrocodone Bitart ([place] (5/325)) 1 tab Q6H PRN PO MODERATE PAIN LEVEL 4-6; Start 05/22/16 at 13:30 Magnesium Hydroxide (Milk Of Mag) 30 ml DAILY PRN PO CONSTIPATION; Start at 13:30 Bisacodyl (Dulcolax) 5 mg DAILY PRN PO CONSTIPATION; Start 05/22/16 at 13:30 Hydralazine HCl (Apresoline) 10 mg Q6H PRN IV SBP>160; Start 05/22/16 at 14:00 Lamivudine (Epivir) 150 mg DAILY PO Last administered on 05/27/16 08:57; Admin Dose 150 MG; Start 05/23/16 at 09:00 Lubiprostone (Amitiza) 8 mcg BID PO Last administered on 05/27/16 08:59; Admin Dose 8 MCG; Start 05/22/16 at 21:00 Salmeterol Xinafoate/ Fluticasone (Advair 250/50 Diskus) 1 inh BID INH Last administered on 05/25/16 22:19; Admin Dose 1 INH; Start 05/22/16 at 21:00 Tamsulosin HCl 0.4 mg 0.4 mg HS PO Last administered on 05/26/16 22:02; Admin Dose 0.4 MG; Start 05/22/16 at 21:00 Dextrose/Sodium Chloride (D5-NS) 1,000 ml @ 50 mls/hr Q20H IV Last administered on 05/27/16 08:49; Admin Dose 50 MLS/HR; Start 05/22/16 at 17:00 Miscellaneous Information 1 ea NOTE XX ; Start 05/22/16 at 17:00 Glucose (Glutose) 15 gm Q15M PRN PO DECREASED GLUCOSE; Start 05/22/16 at 17:00 Glucose (Glutose) 22.5 gm Q15M PRN PO DECREASED GLUCOSE; Start 05/22/16 at 17:00 Dextrose (D50w Syringe) 25 ml Q15M PRN IV DECREASED GLUCOSE; Start 05/22/16 at 17:00 Dextrose (D50w Syringe) 50 ml Q15M PRN IV DECREASED GLUCOSE; Start 05/22/16 at 17:00 Glucagon (Glucagen) 1 mg Q15M PRN IM DECREASED GLUCOSE; Start 05/22/16 at 17:00 Glucose (Glutose) 15 gm Q15M PRN BUCCAL DECREASED GLUCOSE; Start 05/22/16 at 17: 00 Pregabalin (Lyrica) 100 mg TID PO Last administered on 05/27/16 08:59; Admin Dose 100 MG; Start 05/24/16 at 13:00 Allopurinol 100 mg 100 mg DAILY PO Last administered on 05/27/16 08:57; Admin Dose 100 MG; Start 05/25/16 at 09:00 Albumin Human (Albumin Human 25%) 50 ml @ 100 mls/hr BID IV Last administered on 05/27/16 08:43; Admin Dose 100 MLS/HR; Start 05/24/16 at 21:30 Lactulose (Enulose) 20 gm Q8 PO Last administered on 05/27/16 05:12; Admin Dose 20 GM; Start 05/25/16 at 22:00 Famotidine (Pepcid) 20 mg DAILY PO ; Start 05/27/16 at 21:00 KATYA PAUL NP May 27, 2016 12:31
[2016-05-27 20:28] VITALS: BP 91/50; RESP 18
[2016-05-27] MEDS: FAMOTIDINE 20 MG TAB PO SCH (21:00)
[2016-05-27] MEDS: TAMSULOSIN (SR) 0.4 MG CAP PO SCH (21:00)
[2016-05-28] MEDS: DEXTROSE 5%-0.9% NACL 1,000 ML IV SCH (03:45)
[2016-05-28] MEDS: LACTULOSE 30ML CUP PO SCH ×3 (05:11→21:14)
[2016-05-28 05:39] LABS: ADD SCAN DIFF NO
[2016-05-28 05:52] LABS: POTASSIUM 3.9 mmol/L (3.5-5.1)
[2016-05-28 05:55] LABS: ABNORMAL IP MESSAGE 1; BASOPHILS % 0.4 % (0.0-2.0); CALCIUM 8.6 mg/dl (8.4-10.2); CREATININE 2.21 mg/dl (0.61-1.24); EOSINOPHILS # 0.1 10^3/ul (0.0-0.5); EOSINOPHILS % 2.6 % (0.0-7.0); HEMATOCRIT 23.9 % (42.0-52.0); HEMOGLOBIN 7.6 g/dl (14.0-18.0); LYMPHOCYTES # 2.3 10^3/ul (0.8-2.9); LYMPHOCYTES % 45.3 % (15.0-51.0); MEAN CORPUSCULAR HGB CONC 31.8 g/dl (32.0-37.0); MEAN CORPUSCULAR VOLUME 110.1 fl (82.0-101.0); MEAN PLATELET VOLUME 13.3 fl (7.4-10.4); MONOCYTE # 0.5 10^3/ul (0.3-0.9); MONOCYTES % 10.5 % (0.0-11.0); NEUTROPHIL # 2.1 10^3/ul (1.6-7.5); PLATELET COUNT 37 10^3/UL (140-415); RED BLOOD COUNT 2.17 10^6/ul (4.70-6.10); RED CELL DISTRIBUTION WIDTH 20.6 % (11.5-14.5); WHITE BLOOD COUNT 5.1 10^3/ul (4.8-10.8)
[2016-05-28 05:56] LABS: PHOSPHORUS 2.8 mg/dl (2.5-4.9)
[2016-05-28 05:57] LABS: MAGNESIUM 2.3 mg/dl (1.7-2.5)
[2016-05-28] MEDS: LEVOTHYROXINE 25 MCG TAB PO SCH (06:02)
[2016-05-28 07:05] VITALS: BP 126/56; RESP 16
[2016-05-28] MEDS: PREGABALIN 100 MG CAP PO SCH ×3 (08:19→21:11)
[2016-05-28] MEDS: INSULIN ASPART [NOVOLOG] 3 ML PEN SC SCH ×4 (08:19→21:00)
[2016-05-28] MEDS: ALLOPURINOL 100 MG TAB PO SCH (08:20)
[2016-05-28] MEDS: LAMIVUDINE 150 MG TAB PO SCH (08:20)
[2016-05-28] MEDS: SALMETEROL/FLUTICASONE 250/50 INHA INH SCH ×2 (08:20→21:11)
[2016-05-28] MEDS: LUBIPROSTONE 8 MCG CAPSULE PO SCH ×2 (08:20→21:11)
[2016-05-28] MEDS: ALBUMIN HUMAN 25% 50 ML IV SCH ×2 (08:30→21:11)
[2016-05-28] MEDS: FAMOTIDINE 20 MG TAB PO SCH (08:33)
--- NOTE | 2016-05-28 12:16 | PN ---
Date/Time of Note Date/Time of Note DATE: 05/28/16 TIME: 12:13 Assessment/Plan VTE Prophylaxis VTE Prophylaxis Intervention: SCD's Lines/Catheters IV [facility] Type (from [facility]): Peripheral IV Urinary Cath still in place: Yes Reason Cath still needed: terminal illness/intractable pain Assessment/Plan Chief Complaint/Hosp Course 1. Acute encephalopathy, most probably secondary to hepatic encephalopathy. Largely resolved. The patient will be continued on lactulose. The patient's brain CT scan was negative for any acute intracranial findings. 2. Paroxysmal atrial fibrillation. Cardiology following. Not a candidate for anticoagulation because of underlying encephalopathy and high risk for falls. 3. Chronic kidney disease. The patient has history of underlying chronic kidney disease. The patient's BUN and creatinine will be monitored closely. Nephrotoxic drugs will be used with caution. Nephrology on the case. 4. Ascites. Status post paracentesis on 05/23/2016 with drainage of 10 L of fluid. Repeat paracentesis ordered. Repeat paracentesis to be done after platelet transfusion. 5. Hyperammonemia The patient will be continued on lactulose. The patient's mental status will be monitored closely. 6. Hypothyroidism. The patient's Synthroid will be continued. 7. Macrocytic anemia. Most probably anemia secondary to underlying liver cirrhosis. The patient's hemoglobin and hematocrit will be monitored closely. The patient will be transfused as needed. 8. Coagulopathy, most probably secondary to underlying liver cirrhosis. The patient will be monitored closely for any bleeding. 9. Fluids, electrolytes, and nutrition. Continue maintenance fluid. Continue soft diet if the patient is completely awake and alert. 10. DVT prophylaxis. Bilateral sequential compression devices. 11. Gastrointestinal prophylaxis. Proton pump inhibitors. 12. Plan. Repeat paracentesis after platelet transfusion. Poor prognosis. Family aware of the poor prognosis. The patient continues to remain a DNR. Family refused hospice. Case discussed with Dr. Molina. Problems: Subjective 24 Hr Interval Summary Free Text/Dictation Patient had a low-grade fever last night. Exam/Review of Systems Vital Signs Vitals Vital Signs Date Time Temp Pulse Resp B/P Pulse Ox O2 Delivery O2 Flow Rate FiO2 05/28/16 07:05 98.8 78 16 126/56 98 05/27/16 22:40 Intake and Output 05/27/16 05/27/16 05/28/16 15:00 23:00 07:00 Intake Total 200 ml 570 ml 1125 ml Output Total 200 ml 200 ml Balance 200 ml 370 ml 925 ml Exam GENERAL: This is an elderly 80-year-old male patient lying in bed in no apparent distress. HEENT: Head normocephalic and atraumatic. Eyes: Anicteric sclerae. Conjunctivae clear. ENT: Nasal septum is midline. Oral mucosa is dry. NECK: Supple. No JVD noticed. RESPIRATORY: Bilateral diminished breath sounds. Agonal breathing. CARDIAC: Regular rhythm with skipped beats. Systolic murmur. ABDOMEN: Distended. Ascites. Bowel sounds hypoactive in all 4 quadrants. GENITOURINARY: Deferred. EXTREMITIES: No cyanosis, no clubbing. Trace bilateral pedal edema. Peripheral pulses palpable. NEUROLOGIC: The patient is awake and alert. Follows commands. Oriented 2. Results Result Diagram: 05/28/16 0430 05/28/16 0430 Results 24 hrs Laboratory Tests Test 05/27/16 16:50 05/27/16 21:14 05/28/16 04:30 05/28/16 07:43 Bedside Glucose 164 169 154 Ammonia 58 H Anion Gap 15 Basophils # 0.0 Basophils % 0.4 Blood Urea Nitrogen 35 H Calcium Level 8.6 Carbon Dioxide Level 19 L Chloride Level 111 H Creatinine 2.21 H Eosinophils # 0.1 Eosinophils % 2.6 Glucose Level 145 Hematocrit 23.9 L Hemoglobin 7.6 L Lymphocytes # 2.3 Lymphocytes % 45.3 Magnesium Level 2.3 Mean Corpuscular Hemoglobin 35.0 H Mean Corpuscular Hemoglobin Concent 31.8 L Mean Corpuscular Volume 110.1 H Mean Platelet Volume 13.3 #H Monocytes # 0.5 Monocytes % 10.5 Neutrophils # 2.1 Neutrophils % 41.0 Nucleated Red Blood Cells # 0.0 Nucleated Red Blood Cells % 0.0 Phosphorus Level 2.8 Platelet Count 37 L Potassium Level 3.9 Red Blood Count 2.17 L Red Cell Distribution Width 20.6 H Sodium Level 141 White Blood Count 5.1 # Test 05/28/16 11:00 05/28/16 11:19 Lab Scanned Report REFERENCE LAB Bedside Glucose 176 Medications Medications Current Medications Ondansetron HCl (Zofran Inj) 4 mg Q6H PRN IV NAUSEA AND/OR VOMITING Last administered on 05/25/16 02:00; Admin Dose 4 MG; Start 3/6/17 at 13:30 Acetaminophen/ Hydrocodone Bitart ([place] (5/325)) 1 tab Q6H PRN PO MODERATE PAIN LEVEL 4-6; Start 05/22/16 at 13:30 Magnesium Hydroxide (Milk Of Mag) 30 ml DAILY PRN PO CONSTIPATION; Start at 13:30 Bisacodyl (Dulcolax) 5 mg DAILY PRN PO CONSTIPATION; Start 05/22/16 at 13:30 Hydralazine HCl (Apresoline) 10 mg Q6H PRN IV SBP>160; Start 05/22/16 at 14:00 Lamivudine (Epivir) 150 mg DAILY PO Last administered on 05/28/16 08:20; Admin Dose 150 MG; Start 05/23/16 at 09:00 Lubiprostone (Amitiza) 8 mcg BID PO Last administered on 05/28/16 08:20; Admin Dose 8 MCG; Start 05/22/16 at 21:00 Salmeterol Xinafoate/ Fluticasone (Advair 250/50 Diskus) 1 inh BID INH Last administered on 05/28/16 08:20; Admin Dose 1 INH; Start 05/22/16 at 21:00 Tamsulosin HCl 0.4 mg 0.4 mg HS PO Last administered on 05/26/16 22:02; Admin Dose 0.4 MG; Start 05/22/16 at 21:00 Dextrose/Sodium Chloride (D5-NS) 1,000 ml @ 50 mls/hr Q20H IV Last administered on 05/28/16 03:45; Admin Dose 50 MLS/HR; Start 05/22/16 at 17:00 Miscellaneous Information 1 ea NOTE XX ; Start 05/22/16 at 17:00 Glucose (Glutose) 15 gm Q15M PRN PO DECREASED GLUCOSE; Start 05/22/16 at 17:00 Glucose (Glutose) 22.5 gm Q15M PRN PO DECREASED GLUCOSE; Start 05/22/16 at 17:00 Dextrose (D50w Syringe) 25 ml Q15M PRN IV DECREASED GLUCOSE; Start 05/22/16 at 17:00 Dextrose (D50w Syringe) 50 ml Q15M PRN IV DECREASED GLUCOSE; Start 05/22/16 at 17:00 Glucagon (Glucagen) 1 mg Q15M PRN IM DECREASED GLUCOSE; Start 05/22/16 at 17:00 Glucose (Glutose) 15 gm Q15M PRN BUCCAL DECREASED GLUCOSE; Start 05/22/16 at 17: 00 Pregabalin (Lyrica) 100 mg TID PO Last administered on 05/28/16 08:19; Admin Dose 100 MG; Start 05/24/16 at 13:00 Allopurinol 100 mg 100 mg DAILY PO Last administered on 05/28/16 08:20; Admin Dose 100 MG; Start 05/25/16 at 09:00 Albumin Human (Albumin Human 25%) 50 ml @ 100 mls/hr BID IV Last administered on 05/28/16 08:30; Admin Dose 100 MLS/HR; Start 05/24/16 at 21:30 Lactulose (Enulose) 20 gm Q8 PO Last administered on 05/28/16 05:11; Admin Dose 20 GM; Start 05/25/16 at 22:00 Famotidine (Pepcid) 20 mg DAILY PO ; Start 05/27/16 at 21:00 KATYA PAUL NP May 28, 2016 12:16
[2016-05-28] MEDS: TAMSULOSIN (SR) 0.4 MG CAP PO SCH (21:11)
--- NOTE | 2016-05-28 22:14 | CONS ---
Date/Time of Note Date/Time of Note DATE: 05/28/16 TIME: 22:13 Assessment/Plan Assessment/Plan Additional Assessment/Plan 1. 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 The patient is going into acute hepatorenal syndrome with oliguria and worsening renal failure. 2. History of liver cirrhosis secondary to hepatitis C. 3. History of hypertension. 4. History of diabetes mellitus. 5. History of atrial fibrillation. 6. Hypothyroidism. 7. Acute hepatic encephalopathy secondary to high ammonia. 8. Coagulopathy secondary to liver cirrhosis. PLAN: continue IV albumin BP still labile Lasix and spironolactone has been discontinued, no labs today to review change protonix to PO pepcid awaiting paracentesis- transfuse 2 units platelets will follow up s/p family meeting, refused hospice care Consultation Date/Type/Reason Admit Date/Time May 22, 2016 at 11:30 Initial Consult Date May Type of Consultation: NEPHROLOGY Referring Provider: ARLETTE MERIDA MD 24 HR Interval Summary Free Text/Dictation pt confused, lethargic ,refusing meds Exam/Review of Systems Vital Signs Vitals Vital Signs Date Time Temp Pulse Resp B/P Pulse Ox O2 Delivery O2 Flow Rate FiO2 05/28/16 07:05 98.8 78 16 126/56 98 05/27/16 22:40 Intake and Output 05/27/16 05/27/16 05/28/16 15:00 23:00 07:00 Intake Total 200 ml 570 ml 1125 ml Output Total 200 ml 200 ml Balance 200 ml 370 ml 925 ml Exam GENERAL: confused lethargic HEENT: Pupils equal, round, reactive to light and accommodation. No jaundice. NECK: Supple. HEART: S1, S2. Regular rhythm, no murmur. LUNGS: Decreased breath sounds at the right middle lobe, right lower lobe. No wheezing, no crackles. ABDOMEN: Soft, ascites is present, but nontender EXTREMITIES: 1 to 2+ pitting edema. NEUROLOGICAL: Uncooperative for exam. Results Result Diagram: 05/28/16 0430 05/28/16 0430 Results 24 hrs Laboratory Tests Test 05/28/16 04:30 05/28/16 07:43 05/28/16 11:00 05/28/16 11:19 Ammonia 58 H Anion Gap 15 Basophils # 0.0 Basophils % 0.4 Blood Urea Nitrogen 35 H Calcium Level 8.6 Carbon Dioxide Level 19 L Chloride Level 111 H Creatinine 2.21 H Eosinophils # 0.1 Eosinophils % 2.6 Glucose Level 145 Hematocrit 23.9 L Hemoglobin 7.6 L Lymphocytes # 2.3 Lymphocytes % 45.3 Magnesium Level 2.3 Mean Corpuscular Hemoglobin 35.0 H Mean Corpuscular Hemoglobin Concent 31.8 L Mean Corpuscular Volume 110.1 H Mean Platelet Volume 13.3 #H Monocytes # 0.5 Monocytes % 10.5 Neutrophils # 2.1 Neutrophils % 41.0 Nucleated Red Blood Cells # 0.0 Nucleated Red Blood Cells % 0.0 Phosphorus Level 2.8 Platelet Count 37 L Potassium Level 3.9 Red Blood Count 2.17 L Red Cell Distribution Width 20.6 H Sodium Level 141 White Blood Count 5.1 # Bedside Glucose 154 176 Lab Scanned Report REFERENCE LAB Test 05/28/16 16:56 05/28/16 21:09 Bedside Glucose 155 147 Medications Medications Current Medications Ondansetron HCl (Zofran Inj) 4 mg Q6H PRN IV NAUSEA AND/OR VOMITING Last administered on 05/25/16 02:00; Admin Dose 4 MG; Start 05/22/16 at 13:30 Acetaminophen/ Hydrocodone Bitart ([place] (5/325)) 1 tab Q6H PRN PO MODERATE PAIN LEVEL 4-6; Start 05/22/16 at 13:30 Magnesium Hydroxide (Milk Of Mag) 30 ml DAILY PRN PO CONSTIPATION; Start at 13:30 Bisacodyl (Dulcolax) 5 mg DAILY PRN PO CONSTIPATION Last administered on 21:11; Admin Dose 5 MG; Start 05/22/16 at 13:30 Hydralazine HCl (Apresoline) 10 mg Q6H PRN IV SBP>160; Start 05/22/16 at 14:00 Lamivudine (Epivir) 150 mg DAILY PO Last administered on 05/28/16 08:20; Admin Dose 150 MG; Start 05/23/16 at 09:00 Lubiprostone (Amitiza) 8 mcg BID PO Last administered on 05/28/16 21:11; Admin Dose 8 MCG; Start 05/22/16 at 21:00 Salmeterol Xinafoate/ Fluticasone (Advair 250/50 Diskus) 1 inh BID INH Last administered on 05/28/16 21:11; Admin Dose 1 INH; Start 05/22/16 at 21:00 Tamsulosin HCl 0.4 mg 0.4 mg HS PO Last administered on 05/28/16 21:11; Admin Dose 0.4 MG; Start 05/22/16 at 21:00 Dextrose/Sodium Chloride (D5-NS) 1,000 ml @ 50 mls/hr Q20H IV Last administered on 05/28/16 03:45; Admin Dose 50 MLS/HR; Start 05/22/16 at 17:00 Miscellaneous Information 1 ea NOTE XX ; Start 05/22/16 at 17:00 Glucose (Glutose) 15 gm Q15M PRN PO DECREASED GLUCOSE; Start 05/22/16 at 17:00 Glucose (Glutose) 22.5 gm Q15M PRN PO DECREASED GLUCOSE; Start 05/22/16 at 17:00 Dextrose (D50w Syringe) 25 ml Q15M PRN IV DECREASED GLUCOSE; Start 05/22/16 at 17:00 Dextrose (D50w Syringe) 50 ml Q15M PRN IV DECREASED GLUCOSE; Start 05/22/16 at 17:00 Glucagon (Glucagen) 1 mg Q15M PRN IM DECREASED GLUCOSE; Start 05/22/16 at 17:00 Glucose (Glutose) 15 gm Q15M PRN BUCCAL DECREASED GLUCOSE; Start 05/22/16 at 17: 00 Pregabalin (Lyrica) 100 mg TID PO Last administered on 05/28/16 21:11; Admin Dose 100 MG; Start 05/24/16 at 13:00 Allopurinol 100 mg 100 mg DAILY PO Last administered on 05/28/16 08:20; Admin Dose 100 MG; Start 05/25/16 at 09:00 Albumin Human (Albumin Human 25%) 50 ml @ 100 mls/hr BID IV Last administered on 05/28/16 21:11; Admin Dose 100 MLS/HR; Start 05/24/16 at 21:30 Lactulose (Enulose) 20 gm Q8 PO Last administered on 05/28/16 21:14; Admin Dose 20 GM; Start 05/25/16 at 22:00 Famotidine (Pepcid) 20 mg DAILY PO ; Start 05/27/16 at 21:00 SANIA GRAHAM MD May 28, 2016 22:14
[2016-05-28 23:27] VITALS: BP 103/55; RESP 18
[2016-05-29] MEDS: LACTULOSE 30ML CUP PO SCH ×3 (05:27→22:37)
[2016-05-29] MEDS: DEXTROSE 5%-0.9% NACL 1,000 ML IV SCH (05:27)
[2016-05-29] MEDS: LEVOTHYROXINE 25 MCG TAB PO SCH (06:05)
--- NOTE | 2016-05-29 07:15 | PN ---
DATE: 05/28/2016 SUBJECTIVE: No new cardiac event. Patient with low-grade fevers. Denies any chest pain or pressur e to me. Heart rate has remained stable. Blood pressure on the low side, but is stable. MEDICATIONS: Reviewed. PHYSICAL EXAMINATION: VITAL SIGNS: Temperature 99.6, T-max is 100, heart rate of 78, blood pressure 90/50, respiratory r ate of 18, saturating 97%. HEENT: Normocephalic, atraumatic. CARDIOVASCULAR: Regular rate and rhythm, systolic murmur. PULMONARY: With no wheezes. GASTROINTESTINAL: Positive for distention. Positive ascites. EXTREMITIES: Positive tibial edema. NEUROLOGIC: Awake, and oriented at least to person as far as I can say. PSYCHIATRIC: Anxious. LABORATORY: WBC of 5.1, hemoglobin 7.6, platelets of 37. Sodium 141, potassium 3.9, BUN of 35, cre atinine 2.21, glucose 145. ASSESSMENT AND PLAN: 1. Hepatic encephalopathy, improved now with lactulose. 2. Bradycardia. Heart rate currently much better controlled. 3. History of arrhythmia. 4. Paroxysmal atrial fibrillation, currently stable. 5. Liver cirrhosis. 6. Renal failure. 7. Hypertension, currently stable off all medication. 8. Thyroid disorder. 9. Diabetes. RECOMMENDATIONS: We will continue with the current care. Off of on any blood pressure medication. Blood pressure currently stable. Thyroid management as per internal medicine. Follow up renal rec ommendations. Dictated By: ENID DICKSON/WAN Conf#: [id number] DID#: [id number] CC: KATYA PAUL CSM CONSULTANT;*EndCC*
--- NOTE | 2016-05-29 07:34 | CONS ---
DATE OF ADMISSION: 05/22/2016 DATE OF CONSULTATION: 05/27/2016 CARDIOLOGY FOLLOWUP HISTORY OF PRESENT ILLNESS: The patient with no new complaints. Off of telemetry. The patient has been refusing multiple medications that are in chart. MEDICATIONS: Reviewed. PHYSICAL EXAMINATION: VITAL SIGNS: Temperature 98.3, heart rate of 67, blood pressure 121/66, respiration rate of 18, sat urating 97%. HEENT: Normocephalic, atraumatic. CARDIOVASCULAR: Regular rate and rhythm. PULMONARY: With no wheezes anteriorly. No rhonchi. GASTROINTESTINAL: Distended, positive for ascites. EXTREMITIES: With trivial lower extremity edema. NEUROLOGIC: Sleeping but arousable. LABORATORY: WBC of 3.9, hemoglobin 7.7, platelets 37. Sodium 141, potassium 3.7, BUN 35, creatinin e 2.27. INR is 1.99. ASSESSMENT AND PLAN: 1. History of arrhythmia, currently stable heart rate. 2. Hepatic encephalopathy. 3. Liver cirrhosis. 4. Coagulopathy and thrombocytopenia secondary to above. 5. Renal failure. 6. ____ hypertension, currently stable. 7. Thyroid disorder. 8. Diabetes. RECOMMENDATIONS: Lactulose to be continued as per internal medicine. The patient is off all antico agulation. The patient is not on anticoagulation and still has coagulopathy with liver disease. Fo llow with renal recommendations. Code status is DNR. Dictated By: ENID DICKSON/WAN Conf#: [id number] DID#: [id number]
[2016-05-29 07:55] VITALS: BP 96/53; RESP 20
[2016-05-29] MEDS: LAMIVUDINE 150 MG TAB PO SCH (09:07)
[2016-05-29] MEDS: ALLOPURINOL 100 MG TAB PO SCH (09:07)
[2016-05-29] MEDS: LUBIPROSTONE 8 MCG CAPSULE PO SCH ×2 (09:07→20:53)
[2016-05-29] MEDS: PREGABALIN 100 MG CAP PO SCH ×4 (09:08→20:53)
[2016-05-29] MEDS: SALMETEROL/FLUTICASONE 250/50 INHA INH SCH ×2 (09:08→20:54)
[2016-05-29] MEDS: FAMOTIDINE 20 MG TAB PO SCH (09:08)
[2016-05-29] MEDS: INSULIN ASPART [NOVOLOG] 3 ML PEN SC SCH ×4 (09:09→20:54)
[2016-05-29 09:34] LABS: ADD SCAN DIFF NO
[2016-05-29 09:42] LABS: ABNORMAL IP MESSAGE 1; BASOPHILS % 0.3 % (0.0-2.0); EOSINOPHILS # 0.2 10^3/ul (0.0-0.5); HEMATOCRIT 22.5 % (42.0-52.0); HEMOGLOBIN 7.3 g/dl (14.0-18.0); LYMPHOCYTES # 2.7 10^3/ul (0.8-2.9); LYMPHOCYTES % 42.5 % (15.0-51.0); MEAN CORPUSCULAR HEMOGLOBIN 35.8 pg (29.0-33.0); MEAN CORPUSCULAR HGB CONC 32.4 g/dl (32.0-37.0); MEAN CORPUSCULAR VOLUME 110.3 fl (82.0-101.0); MEAN PLATELET VOLUME 11.3 fl (7.4-10.4); MONOCYTES % 15.2 % (0.0-11.0); NEUTROPHIL # 2.5 10^3/ul (1.6-7.5); NEUTROPHILS % 38.4 % (39.0-77.0); PLATELET COUNT 58 10^3/UL (140-415); RED BLOOD COUNT 2.04 10^6/ul (4.70-6.10); RED CELL DISTRIBUTION WIDTH 20.3 % (11.5-14.5); WHITE BLOOD COUNT 6.4 10^3/ul (4.8-10.8)
[2016-05-29 09:47] LABS: POTASSIUM 3.7 mmol/L (3.5-5.1)
[2016-05-29 09:49] LABS: CREATININE 2.13 mg/dl (0.61-1.24)
[2016-05-29 09:50] LABS: CALCIUM 8.7 mg/dl (8.4-10.2)
[2016-05-29] MEDS ORDERED: ACETAMINOPHEN 650 MG SUPP PR PRN (10:00)
[2016-05-29] MEDS ORDERED: ACETAMINOPHEN 325 MG TAB PO PRN (10:00)
[2016-05-29] MEDS: ALBUMIN HUMAN 25% 50 ML IV SCH ×2 (10:20→20:54)
[2016-05-29 12:15] VITALS: BP 112/58; RESP 19
--- NOTE | 2016-05-29 12:25 | PN ---
Date/Time of Note Date/Time of Note DATE: 05/29/16 TIME: 12:21 Assessment/Plan VTE Prophylaxis VTE Prophylaxis Intervention: SCD's Lines/Catheters IV [facility]ter [facility] (from [facility] Peripheral IV Urinary Cath still in place: Yes Reason Cath still needed: other (indicate) (monitor I&O) Assessment/Plan Chief Complaint/Hosp Course Assessment and plan 1. Acute encephalopathy secondary to hepatic insufficiency. Continue on lactulose at this time. CT scan of the brain was negative for any acute intracranial findings. Continue fall precautions 2. Paroxysmal atrial fibrillation. No plan for anticoagulation due to underlying encephalopathy and risk for falls. Continue with cardiology recommendations. 3. History of CKD. Avoid nephrotoxic medications. Continue to monitor renal panel. Follow up with manager project management recommendations 4. Abdominal ascites. Patient is status post paracentesis on May 23, 2016 with roughly 10 L of fluid removed. Patient again with abdominal distention. Plan for repeat paracentesis. 5. Hyperammonemia. Continue lactulose 6. Hypothyroidism. Will resume patient's Synthroid medications 7. Macrocytic anemia secondary to liver cirrhosis. Will monitor H&H and transfuse as needed 8. Coagulopathy secondary to underlying liver cirrhosis. Monitor for signs and symptoms of bleed. Anticoagulation not given at this time. DVT prophylaxis: His SCDs Disposition and plan: Patient remains in poor prognosis. He is DNR at this time. Family refusing hospice. Tentative plan for [facility] facility placement once medically stable. Plan for paracentesis today. Discussed plan of care with Dr. Silva Problems: Subjective 24 Hr Interval Summary Free Text/Dictation Patient still appears encephalopathic. No purposeful verbal response. No acute signs or symptoms of distress noted at this time Exam/Review of Systems Vital Signs Vitals Vital Signs Date Time Temp Pulse Resp B/P Pulse Ox O2 Delivery O2 Flow Rate FiO2 05/29/16 11:30 99.2 05/29/16 07:55 79 20 96/53 96 05/27/16 22:40 Intake and Output 05/28/16 05/28/16 05/29/16 15:00 23:00 07:00 Intake Total 50 ml 1330 ml 1474 ml Output Total 275 ml 300 ml Balance 50 ml 1055 ml 1174 ml Exam General: Confused at present. No acute distress. Noted with distended abdomen Eyes: Pupils equal round, slightly icteric sclera Neck: Supple nontender, no JVD Cardiac: S1-S2 auscultated remains in regular rate Pulmonary: No adventitious lung sounds auscultated GI: Distended, minimally tender upon palpation. Extremities: Minimal edema bilateral lower extremities +1 Neurologic: Awakens to verbal response. No purposeful response. Encephalopathic at this time Results Result Diagram: 05/29/16 0915 05/29/16 0915 Results 24 hrs Laboratory Tests Test 05/28/16 16:56 05/28/16 21:09 05/29/16 07:44 05/29/16 09:15 Bedside Glucose 155 147 151 Ammonia 32 #H Anion Gap 16 Basophils # 0.0 Basophils % 0.3 Blood Urea Nitrogen 32 H Calcium Level 8.7 Carbon Dioxide Level 20 L Chloride Level 110 Creatinine 2.13 H Eosinophils # 0.2 Eosinophils % 3.0 Glucose Level 128 Hematocrit 22.5 L Hemoglobin 7.3 L Lymphocytes # 2.7 Lymphocytes % 42.5 Magnesium Level 2.5 Mean Corpuscular Hemoglobin 35.8 H Mean Corpuscular Hemoglobin Concent 32.4 Mean Corpuscular Volume 110.3 H Mean Platelet Volume 11.3 H Monocytes # 1.0 H Monocytes % 15.2 H Neutrophils # 2.5 Neutrophils % 38.4 L Nucleated Red Blood Cells # 0.0 Nucleated Red Blood Cells % 0.0 Platelet Count 58 #L Potassium Level 3.7 Red Blood Count 2.04 L Red Cell Distribution Width 20.3 H Sodium Level 142 White Blood Count 6.4 # Test 05/29/16 11:26 Bedside Glucose 159 Medications Medications Current Medications Ondansetron HCl (Zofran Inj) 4 mg Q6H PRN IV NAUSEA AND/OR VOMITING Last administered on 05/25/16 02:00; Admin Dose 4 MG; Start 05/22/16 at 13:30 Acetaminophen/ Hydrocodone Bitart ([place] (5/325)) 1 tab Q6H PRN PO MODERATE PAIN LEVEL 4-6; Start 05/22/16 at 13:30 Magnesium Hydroxide (Milk Of Mag) 30 ml DAILY PRN PO CONSTIPATION; Start at 13:30 Bisacodyl (Dulcolax) 5 mg DAILY PRN PO CONSTIPATION Last administered on 21:11; Admin Dose 5 MG; Start 05/22/16 at 13:30 Hydralazine HCl (Apresoline) 10 mg Q6H PRN IV SBP>160; Start 05/22/16 at 14:00 Lamivudine (Epivir) 150 mg DAILY PO Last administered on 05/29/16 09:07; Admin Dose 150 MG; Start 05/23/16 at 09:00 Lubiprostone (Amitiza) 8 mcg BID PO Last administered on 05/29/16 09:07; Admin Dose 8 MCG; Start 05/22/16 at 21:00 Salmeterol Xinafoate/ Fluticasone (Advair 250/50 Diskus) 1 inh BID INH Last administered on 05/29/16 09:08; Admin Dose 1 INH; Start 05/22/16 at 21:00 Tamsulosin HCl 0.4 mg 0.4 mg HS PO Last administered on 05/28/16 21:11; Admin Dose 0.4 MG; Start 05/22/16 at 21:00 Dextrose/Sodium Chloride (D5-NS) 1,000 ml @ 50 mls/hr Q20H IV Last administered on 05/29/16 05:27; Admin Dose 50 MLS/HR; Start 05/22/16 at 17:00 Miscellaneous Information 1 ea NOTE XX ; Start 05/22/16 at 17:00 Glucose (Glutose) 15 gm Q15M PRN PO DECREASED GLUCOSE; Start 05/22/16 at 17:00 Glucose (Glutose) 22.5 gm Q15M PRN PO DECREASED GLUCOSE; Start 05/22/16 at 17:00 Dextrose (D50w Syringe) 25 ml Q15M PRN IV DECREASED GLUCOSE; Start 05/22/16 at 17:00 Dextrose (D50w Syringe) 50 ml Q15M PRN IV DECREASED GLUCOSE; Start 05/22/16 at 17:00 Glucagon (Glucagen) 1 mg Q15M PRN IM DECREASED GLUCOSE; Start 05/22/16 at 17:00 Glucose (Glutose) 15 gm Q15M PRN BUCCAL DECREASED GLUCOSE; Start 05/22/16 at 17: 00 Pregabalin (Lyrica) 100 mg TID PO Last administered on 05/29/16 09:08; Admin Dose 100 MG; Start 05/24/16 at 13:00 Allopurinol 100 mg 100 mg DAILY PO Last administered on 05/29/16 09:07; Admin Dose 100 MG; Start 05/25/16 at 09:00 Albumin Human (Albumin Human 25%) 50 ml @ 100 mls/hr BID IV Last administered on 05/29/16 10:20; Admin Dose 100 MLS/HR; Start 05/24/16 at 21:30 Lactulose (Enulose) 20 gm Q8 PO Last administered on 05/29/16 05:27; Admin Dose 20 GM; Start 05/25/16 at 22:00 Famotidine (Pepcid) 20 mg DAILY PO Last administered on 05/29/16 09:08; Admin Dose 20 MG; Start 05/27/16 at 21:00 Acetaminophen (Tylenol Supp) 650 mg Q4H PRN [place] PAIN OR TEMP ABOVE 38C; Start at 10:00 Acetaminophen (Tylenol Tab) 650 mg Q4H PRN PO PAIN AND OR ELEVATED TEMP; Start 05/29/16 at 10:00 MERISSA DURAN May 29, 2016 12:25
[2016-05-29] MEDS ORDERED: LIDOCAINE 1% (MPF) 5 ML VIAL ONE (15:52)
--- NOTE | 2016-05-29 16:32 | CONS ---
Date/Time of Note Date/Time of Note DATE: 05/29/16 TIME: 16:30 Assessment/Plan Assessment/Plan Additional Assessment/Plan 1. 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 The patient is going into acute hepatorenal syndrome with oliguria and worsening renal failure. 2. History of liver cirrhosis secondary to hepatitis C. 3. History of hypertension. 4. History of diabetes mellitus. 5. History of atrial fibrillation. 6. Hypothyroidism. 7. Acute hepatic encephalopathy secondary to high ammonia. 8. Coagulopathy secondary to liver cirrhosis. PLAN: continue IV albumin , Cr 2.1 BP still labile Lasix and spironolactone has been discontinued, no labs today to review change protonix to PO pepcid awaiting paracentesis- transfused 2 units platelets will follow up s/p family meeting, refused hospice care Consultation Date/Type/Reason Admit Date/Time May 22, 2016 at 11:30 Initial Consult Date May Type of Consultation: NEPHROLOGY Reason for Consultation acute kidney injury, Bp stable Referring Provider: ARLETTE MERIDA MD 24 HR Interval Summary Free Text/Dictation Cr stable, Pt refused paracentesis on the weekend Exam/Review of Systems Vital Signs Vitals Vital Signs Date Time Temp Pulse Resp B/P Pulse Ox O2 Delivery O2 Flow Rate FiO2 05/29/16 12:15 98.3 19 112/58 96 Nasal Cannula 05/29/16 07:55 79 05/27/16 22:40 Intake and Output 05/28/16 05/28/16 05/29/16 15:00 23:00 07:00 Intake Total 50 ml 1330 ml 1474 ml Output Total 275 ml 300 ml Balance 50 ml 1055 ml 1174 ml Exam GENERAL: confused lethargic HEENT: Pupils equal, round, reactive to light and accommodation. No jaundice. NECK: Supple. HEART: S1, S2. Regular rhythm, no murmur. LUNGS: Decreased breath sounds at the right middle lobe, right lower lobe. No wheezing, no crackles. ABDOMEN: Soft, ascites is present, but nontender EXTREMITIES: 1 to 2+ pitting edema. NEUROLOGICAL: Uncooperative for exam. Results Result Diagram: 05/29/16 0915 05/29/16 0915 Results 24 hrs Laboratory Tests Test 05/28/16 16:56 05/28/16 21:09 05/29/16 07:44 05/29/16 09:15 Bedside Glucose 155 147 151 Ammonia 32 #H Anion Gap 16 Basophils # 0.0 Basophils % 0.3 Blood Urea Nitrogen 32 H Calcium Level 8.7 Carbon Dioxide Level 20 L Chloride Level 110 Creatinine 2.13 H Eosinophils # 0.2 Eosinophils % 3.0 Glucose Level 128 Hematocrit 22.5 L Hemoglobin 7.3 L Lymphocytes # 2.7 Lymphocytes % 42.5 Magnesium Level 2.5 Mean Corpuscular Hemoglobin 35.8 H Mean Corpuscular Hemoglobin Concent 32.4 Mean Corpuscular Volume 110.3 H Mean Platelet Volume 11.3 H Monocytes # 1.0 H Monocytes % 15.2 H Neutrophils # 2.5 Neutrophils % 38.4 L Nucleated Red Blood Cells # 0.0 Nucleated Red Blood Cells % 0.0 Platelet Count 58 #L Potassium Level 3.7 Red Blood Count 2.04 L Red Cell Distribution Width 20.3 H Sodium Level 142 White Blood Count 6.4 # Test 05/29/16 11:26 Bedside Glucose 159 Medications Medications Current Medications Ondansetron HCl (Zofran Inj) 4 mg Q6H PRN IV NAUSEA AND/OR VOMITING Last administered on 05/25/16 02:00; Admin Dose 4 MG; Start 05/22/16 at 13:30 Acetaminophen/ Hydrocodone Bitart ([place] (5/325)) 1 tab Q6H PRN PO MODERATE PAIN LEVEL 4-6; Start 05/22/16 at 13:30 Magnesium Hydroxide (Milk Of Mag) 30 ml DAILY PRN PO CONSTIPATION; Start at 13:30 Bisacodyl (Dulcolax) 5 mg DAILY PRN PO CONSTIPATION Last administered on 21:11; Admin Dose 5 MG; Start 05/22/16 at 13:30 Hydralazine HCl (Apresoline) 10 mg Q6H PRN IV SBP>160; Start 05/22/16 at 14:00 Lamivudine (Epivir) 150 mg DAILY PO Last administered on 05/29/16 09:07; Admin Dose 150 MG; Start 05/23/16 at 09:00 Lubiprostone (Amitiza) 8 mcg BID PO Last administered on 05/29/16 09:07; Admin Dose 8 MCG; Start 05/22/16 at 21:00 Salmeterol Xinafoate/ Fluticasone (Advair 250/50 Diskus) 1 inh BID INH Last administered on 05/29/16 09:08; Admin Dose 1 INH; Start 05/22/16 at 21:00 Tamsulosin HCl 0.4 mg 0.4 mg HS PO Last administered on 05/28/16 21:11; Admin Dose 0.4 MG; Start 05/22/16 at 21:00 Dextrose/Sodium Chloride (D5-NS) 1,000 ml @ 50 mls/hr Q20H IV Last administered on 05/29/16 05:27; Admin Dose 50 MLS/HR; Start 05/22/16 at 17:00 Miscellaneous Information 1 ea NOTE XX ; Start 05/22/16 at 17:00 Glucose (Glutose) 15 gm Q15M PRN PO DECREASED GLUCOSE; Start 05/22/16 at 17:00 Glucose (Glutose) 22.5 gm Q15M PRN PO DECREASED GLUCOSE; Start 05/22/16 at 17:00 Dextrose (D50w Syringe) 25 ml Q15M PRN IV DECREASED GLUCOSE; Start 05/22/16 at 17:00 Dextrose (D50w Syringe) 50 ml Q15M PRN IV DECREASED GLUCOSE; Start 05/22/16 at 17:00 Glucagon (Glucagen) 1 mg Q15M PRN IM DECREASED GLUCOSE; Start 05/22/16 at 17:00 Glucose (Glutose) 15 gm Q15M PRN BUCCAL DECREASED GLUCOSE; Start 05/22/16 at 17: 00 Pregabalin (Lyrica) 100 mg TID PO Last administered on 05/29/16 09:08; Admin Dose 100 MG; Start 05/24/16 at 13:00 Allopurinol 100 mg 100 mg DAILY PO Last administered on 05/29/16 09:07; Admin Dose 100 MG; Start 05/25/16 at 09:00 Albumin Human (Albumin Human 25%) 50 ml @ 100 mls/hr BID IV Last administered on 05/29/16 10:20; Admin Dose 100 MLS/HR; Start 05/24/16 at 21:30 Lactulose (Enulose) 20 gm Q8 PO Last administered on 05/29/16 05:27; Admin Dose 20 GM; Start 05/25/16 at 22:00 Famotidine (Pepcid) 20 mg DAILY PO Last administered on 05/29/16 09:08; Admin Dose 20 MG; Start 05/27/16 at 21:00 Acetaminophen (Tylenol Supp) 650 mg Q4H PRN [place] PAIN OR TEMP ABOVE 38C; Start at 10:00 Acetaminophen (Tylenol Tab) 650 mg Q4H PRN PO PAIN AND OR ELEVATED TEMP; Start 05/29/16 at 10:00 SANIA GRAHAM MD May 29, 2016 16:32
--- NOTE | 2016-05-29 16:35 | RADRPT ---
PROCEDURE: Ultrasound guided paracentesis. CLINICAL INDICATION: Ascites and shortness of breath. COMPARISON: 05/23/2016. TECHNIQUE: The risks, benefits, and alternatives were explained to the patient and/or the patient's family, inc luding but not limited to bleeding, infection, pain, visceral or vascular damage, shock, and . The patient and/or the patient's family understood the risks and the alternatives and wished to pro ceed with the procedure. Informed written consent was obtained. A procedural time out was performed . The patient's name, date of , and procedure to be performed were verified. Utilizing ultrasound guidance, optimal location for entry to the peritoneal cavity was ascertained. The overlying skin was prepped and draped in the usual sterile fashion. Approximately 10 ml of 1% Xylocaine was injected locally for pain control. Using ultrasound guidance, an 8 [place] catheter wa s introduced into the peritoneal cavity in the right lower quadrant without difficulty. FINDINGS: Initial images demonstrate ascites. Approximately 10.7 liters of serous fluid was aspirated and dis carded. The patient tolerated the procedure well without complication. IMPRESSION: 1. Successful ultrasound-guided paracentesis. RPTAT: QQ .Slava Jain MD, Date Time Electronically viewed and signed by .Slava Jain MD, on 05/29/2016 16:35 .R/
[2016-05-29 17:31] VITALS: BP 99/54
[2016-05-29 19:55] VITALS: BP 88/43; RESP 16
[2016-05-29] MEDS: TAMSULOSIN (SR) 0.4 MG CAP PO SCH (20:53)
[2016-05-30] VITALS (14 sets, daily range): BP systolic 83–95; BP diastolic 43–54; PULSE 70–77; RESP 16–19
[2016-05-30 04:49] LABS: ADD SCAN DIFF NO
[2016-05-30 05:19] LABS: POTASSIUM 4.1 mmol/L (3.5-5.1)
[2016-05-30 05:22] LABS: CALCIUM 8.4 mg/dl (8.4-10.2); CREATININE 2.16 mg/dl (0.61-1.24)
[2016-05-30] MEDS: DEXTROSE 5%-0.9% NACL 1,000 ML IV SCH (05:24)
[2016-05-30] MEDS: LEVOTHYROXINE 25 MCG TAB PO SCH (05:24)
[2016-05-30] MEDS: LACTULOSE 30ML CUP PO SCH ×3 (05:24→23:04)
--- NOTE | 2016-05-30 06:36 | PN ---
DATE: 05/29/2016 SUBJECTIVE: No new cardiac event. No chest pain or pressure. He appears confused. Heart rate rem ain stable. MEDICATIONS: Reviewed as per medical reconciliation; personally reviewed. PHYSICAL EXAMINATION: VITAL SIGNS: Temperature 98.3, heart rate of 79, blood pressure 112/58, respiratory rate of 19, sat urating 96%. HEENT: Normocephalic, atraumatic. Thin gentleman. Pupils are equal. CARDIOVASCULAR: Regular rate and rhythm, systolic murmur. PULMONARY: With no wheezes. Minimal rhonchi at the base. GASTROINTESTINAL: Soft, distended, with no rebound or guarding. EXTREMITIES: With no significant lower extremity edema. NEUROLOGIC: Awake, oriented to person. He is anxious, but overall stable. LABORATORY: WBC of 6.4, hemoglobin 7.3, platelets of 58. Sodium 142, potassium 3.7, BUN of 22, cre atinine 3.13, glucose 128. ASSESSMENT AND PLAN: 1. Bradycardia, history of arrhythmia, currently appears to be stable. 2. Hepatic encephalopathy, slowly improving now. 3. Liver cirrhosis. 4. Renal failure. 5. History of hypertension, currently hypotensive. 6. Thyroid disorder. 7. Diabetes. 8. Pancytopenia, thrombocytopenia, and anemia. RECOMMENDATIONS: We will continue with the current cardiac care. as per internal medicine. Heart rate has remained stable off of any beta dafne. We will continue to monitor only at this po int. Dictated By: ENID TAYLOR MD AV/WAN Conf#: [id number] DID#: [id number] CC: SANIA GRAHAM MD; KATYA PAUL DUST CONTROL ENGINEER;*[facility]*
[2016-05-30] MEDS: ALBUMIN HUMAN 25% 50 ML IV SCH ×2 (08:18→23:05)
[2016-05-30] MEDS: SALMETEROL/FLUTICASONE 250/50 INHA INH SCH ×3 (09:00→20:19)
[2016-05-30] MEDS: LAMIVUDINE 150 MG TAB PO SCH (09:12)
[2016-05-30] MEDS: PREGABALIN 100 MG CAP PO SCH ×3 (09:12→20:18)
[2016-05-30] MEDS: INSULIN ASPART [NOVOLOG] 3 ML PEN SC SCH ×4 (09:12→20:31)
[2016-05-30] MEDS: FAMOTIDINE 20 MG TAB PO SCH (09:12)
[2016-05-30] MEDS: LUBIPROSTONE 8 MCG CAPSULE PO SCH ×2 (09:12→20:18)
[2016-05-30] MEDS: ALLOPURINOL 100 MG TAB PO SCH (09:12)
[2016-05-30] MEDS: ALBUMIN HUMAN 5% 250 ML IV SCH ×2 (11:41→12:47)
[2016-05-30 12:33] LABS: IRON 41 ug/dl (35-150)
[2016-05-30 12:44] LABS: TOTAL IRON BINDING CAPACITY 63 ug/dl (241-421)
[2016-05-30 13:28] LABS: ABNORMAL IP MESSAGE 1; BASOPHILS % 0.2 % (0.0-2.0); EOSINOPHILS # 0.2 10^3/ul (0.0-0.5); EOSINOPHILS % 3.8 % (0.0-7.0); HEMATOCRIT 17.4 % (42.0-52.0); LYMPHOCYTES # 2.1 10^3/ul (0.8-2.9); LYMPHOCYTES % 50.5 % (15.0-51.0); MEAN CORPUSCULAR HEMOGLOBIN 35.8 pg (29.0-33.0); MEAN CORPUSCULAR HGB CONC 32.8 g/dl (32.0-37.0); MEAN CORPUSCULAR VOLUME 109.4 fl (82.0-101.0); MEAN PLATELET VOLUME 11.3 fl (7.4-10.4); MONOCYTE # 0.5 10^3/ul (0.3-0.9); MONOCYTES % 12.6 % (0.0-11.0); NEUTROPHIL # 1.4 10^3/ul (1.6-7.5); NEUTROPHILS % 32.7 % (39.0-77.0); PLATELET COUNT 36 10^3/UL (140-415); RED BLOOD COUNT 1.59 10^6/ul (4.70-6.10); RED CELL DISTRIBUTION WIDTH 19.9 % (11.5-14.5); WHITE BLOOD COUNT 4.2 10^3/ul (4.8-10.8)
[2016-05-30 13:34] LABS: HEMOGLOBIN 5.7 g/dl (14.0-18.0)
[2016-05-30] MEDS ORDERED: SOD CHLORIDE 0.9% 250 ML IV* ONE (13:44)
--- NOTE | 2016-05-30 14:36 | PN ---
Date/Time of Note Date/Time of Note DATE: 05/30/16 TIME: 14:32 Assessment/Plan VTE Prophylaxis VTE Prophylaxis Intervention: SCD's Lines/Catheters IV Catheter Type (from [facility]): Peripheral IV Urinary Cath still in place: Yes Reason Cath still needed: other (indicate) (monitor I&O) Assessment/Plan Chief Complaint/Hosp Course Assessment and plan 1. Acute encephalopathy secondary to hepatic insufficiency. Continue on lactulose at this time. CT scan of the brain was negative for any acute intracranial findings. Continue fall precautions. Is awake to verbal response 2. Paroxysmal atrial fibrillation. No plan for anticoagulation due to underlying encephalopathy and risk for falls. Continue with cardiology recommendations. Continue to monitor 3. History of CKD. Avoid nephrotoxic medications. . Follow up with amf mechanic recommendations. Check follow-up renal panel 4. Abdominal ascites. Patient is status post paracentesis on May 23, 2016 with roughly 10 L of fluid removed. Patient again with abdominal distention. Again with repeat paracentesis with roughly 10.7 L of serous fluid removed. Monitor for hypotension 5. Hyperammonemia. Continue lactulose. Stable 6. Hypothyroidism. Tinea Synthroid 7. Macrocytic anemia secondary to liver cirrhosis. With worsening anemia. Plan for transfusion of PRBC 8. Coagulopathy secondary to underlying liver cirrhosis. Monitor for signs and symptoms of bleed. Anticoagulation not given at this time. DVT prophylaxis: His SCDs Disposition and plan: Patient remains in poor prognosis. He is DNR at this time. Family refusing hospice. With worsening anemia. Plan for transfusion of 2 PRBC. Follow-up on occult stool. GI consulted. Discussed plan of care with Dr. John Problems: Subjective 24 Hr Interval Summary Free Text/Dictation with worse anemia at this time Exam/Review of Systems Vital Signs Vitals Vital Signs Date Time Temp Pulse Resp B/P Pulse Ox O2 Delivery O2 Flow Rate FiO2 05/30/16 12:49 70 87/51 05/30/16 08:12 98.4 18 97 05/29/16 12:15 Nasal Cannula 05/27/16 22:40 Intake and Output 05/29/16 05/29/16 05/30/16 15:00 23:00 07:00 Intake Total 50 ml 1150 ml 1270 ml Output Total 200 ml 450 ml Balance 50 ml 950 ml 820 ml Exam General: Still confused at times. Eyes: Pupils equal round Neck: No JVD seen today Cardiac: regular rate Pulmonary: No obvious wheezing or rhonchi GI: Distended, minimally tender upon palpation still Extremities: Minimal edema bilateral lower extremities +1 seen today Neurologic: More awake. No purposeful response Results Result Diagram: 05/30/16 1300 05/30/16 0500 Results 24 hrs Laboratory Tests Test 05/29/16 17:20 05/29/16 20:39 05/30/16 04:35 05/30/16 05:00 Bedside Glucose 115 175 Ammonia 41 H Iron Level 41 Magnesium Level 2.4 Percent Iron Saturation 65 H Total Iron Binding Capacity 63 L Anion Gap 12 Blood Urea Nitrogen 37 H Calcium Level 8.4 Carbon Dioxide Level 19 L Chloride Level 111 H Creatinine 2.16 H Glucose Level 112 Potassium Level 4.1 Sodium Level 138 Test 05/30/16 08:16 05/30/16 12:21 05/30/16 13:00 Bedside Glucose 158 169 Basophils # 0.0 Basophils % 0.2 Eosinophils # 0.2 Eosinophils % 3.8 Hematocrit 17.4 #L Hemoglobin 5.7 #*L Lymphocytes # 2.1 Lymphocytes % 50.5 Mean Corpuscular Hemoglobin 35.8 H Mean Corpuscular Hemoglobin Concent 32.8 Mean Corpuscular Volume 109.4 H Mean Platelet Volume 11.3 H Monocytes # 0.5 Monocytes % 12.6 H Neutrophils # 1.4 L Neutrophils % 32.7 L Nucleated Red Blood Cells # 0.0 Nucleated Red Blood Cells % 0.0 Platelet Count 36 #L Red Blood Count 1.59 #L Red Cell Distribution Width 19.9 H White Blood Count 4.2 #L Medications Medications Current Medications Ondansetron HCl (Zofran Inj) 4 mg Q6H PRN IV NAUSEA AND/OR VOMITING Last administered on 05/25/16 02:00; Admin Dose 4 MG; Start 05/22/16 at 13:30 Acetaminophen/ Hydrocodone Bitart ([place] (5/325)) 1 tab Q6H PRN PO MODERATE PAIN LEVEL 4-6; Start 05/22/16 at 13:30 Magnesium Hydroxide (Milk Of Mag) 30 ml DAILY PRN PO CONSTIPATION; Start at 13:30 Bisacodyl (Dulcolax) 5 mg DAILY PRN PO CONSTIPATION Last administered on 21:11; Admin Dose 5 MG; Start 05/22/16 at 13:30 Hydralazine HCl (Apresoline) 10 mg Q6H PRN IV SBP>160; Start 05/22/16 at 14:00 Lamivudine (Epivir) 150 mg DAILY PO Last administered on 05/30/16 09:12; Admin Dose 150 MG; Start 05/23/16 at 09:00 Lubiprostone (Amitiza) 8 mcg BID PO Last administered on 05/30/16 09:12; Admin Dose 8 MCG; Start 05/22/16 at 21:00 Salmeterol Xinafoate/ Fluticasone (Advair 250/50 Diskus) 1 inh BID INH Last administered on 05/29/16 20:54; Admin Dose 1 INH; Start 05/22/16 at 21:00 Tamsulosin HCl 0.4 mg 0.4 mg HS PO Last administered on 05/29/16 20:53; Admin Dose 0.4 MG; Start 05/22/16 at 21:00 Dextrose/Sodium Chloride (D5-NS) 1,000 ml @ 50 mls/hr Q20H IV Last administered on 05/30/16 05:24; Admin Dose 50 MLS/HR; Start 05/22/16 at 17:00 Miscellaneous Information 1 ea NOTE XX ; Start 05/22/16 at 17:00 Glucose (Glutose) 15 gm Q15M PRN PO DECREASED GLUCOSE; Start 05/22/16 at 17:00 Glucose (Glutose) 22.5 gm Q15M PRN PO DECREASED GLUCOSE; Start 05/22/16 at 17:00 Dextrose (D50w Syringe) 25 ml Q15M PRN IV DECREASED GLUCOSE; Start 05/22/16 at 17:00 Dextrose (D50w Syringe) 50 ml Q15M PRN IV DECREASED GLUCOSE; Start 05/22/16 at 17:00 Glucagon (Glucagen) 1 mg Q15M PRN IM DECREASED GLUCOSE; Start 05/22/16 at 17:00 Glucose (Glutose) 15 gm Q15M PRN BUCCAL DECREASED GLUCOSE; Start 05/22/16 at 17: 00 Pregabalin (Lyrica) 100 mg TID PO Last administered on 05/30/16 09:12; Admin Dose 100 MG; Start 05/24/16 at 13:00 Allopurinol 100 mg 100 mg DAILY PO Last administered on 05/30/16 09:12; Admin Dose 100 MG; Start 05/25/16 at 09:00 Albumin Human (Albumin Human 25%) 50 ml @ 100 mls/hr BID IV Last administered on 05/30/16 08:18; Admin Dose 100 MLS/HR; Start 05/24/16 at 21:30 Lactulose (Enulose) 20 gm Q8 PO Last administered on 05/30/16 05:24; Admin Dose 20 GM; Start 05/25/16 at 22:00 Famotidine (Pepcid) 20 mg DAILY PO Last administered on 05/30/16 09:12; Admin Dose 20 MG; Start 05/27/16 at 21:00 Acetaminophen (Tylenol Supp) 650 mg Q4H PRN [place] PAIN OR TEMP ABOVE 38C; Start at 10:00 Acetaminophen (Tylenol Tab) 650 mg Q4H PRN PO PAIN AND OR ELEVATED TEMP; Start 05/29/16 at 10:00 MERISSA DURAN May 30, 2016 14:36
--- NOTE | 2016-05-30 15:50 | CONS ---
Date/Time of Note Date/Time of Note DATE: 05/30/16 TIME: 15:48 Assessment/Plan Assessment/Plan Additional Assessment/Plan 1. 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 The patient is going into acute hepatorenal syndrome with oliguria and worsening renal failure. 2. History of liver cirrhosis secondary to hepatitis C. 3. History of hypertension. 4. History of diabetes mellitus. 5. History of atrial fibrillation. 6. Hypothyroidism. 7. Acute hepatic encephalopathy secondary to high ammonia. 8. Coagulopathy secondary to liver cirrhosis. PLAN: Hb dropped to 5.7, Cr 2.1 s/p paracentesis 10 L removed s/p family meeting, refused hospice care due to comorbidites, pt is not a candidate for renal replacement therapy will follow up Consultation Date/Type/Reason Admit Date/Time May 22, 2016 at 11:30 Initial Consult Date May Type of Consultation: NEPHROLOGY Referring Provider: ARLETTE MERIDA MD 24 HR Interval Summary Free Text/Dictation s/p paracentesis 10 L removed Exam/Review of Systems Vital Signs Vitals Vital Signs Date Time Temp Pulse Resp B/P Pulse Ox O2 Delivery O2 Flow Rate FiO2 05/30/16 12:49 70 87/51 05/30/16 08:12 98.4 18 97 05/29/16 12:15 Nasal Cannula 05/27/16 22:40 Intake and Output 05/29/16 05/29/16 05/30/16 15:00 23:00 07:00 Intake Total 50 ml 1150 ml 1270 ml Output Total 200 ml 450 ml Balance 50 ml 950 ml 820 ml Exam GENERAL: confused lethargic HEENT: Pupils equal, round, reactive to light and accommodation. No jaundice. NECK: Supple. HEART: S1, S2. Regular rhythm, no murmur. LUNGS: Decreased breath sounds at the right middle lobe, right lower lobe. No wheezing, no crackles. ABDOMEN: Soft, ascites is present, but nontender EXTREMITIES: 1 to 2+ pitting edema. NEUROLOGICAL: Uncooperative for exam. Results Result Diagram: 05/30/16 1300 05/30/16 0500 Results 24 hrs Laboratory Tests Test 05/29/16 17:20 05/29/16 20:39 05/30/16 04:35 05/30/16 05:00 Bedside Glucose 115 175 Ammonia 41 H Iron Level 41 Magnesium Level 2.4 Percent Iron Saturation 65 H Total Iron Binding Capacity 63 L Anion Gap 12 Blood Urea Nitrogen 37 H Calcium Level 8.4 Carbon Dioxide Level 19 L Chloride Level 111 H Creatinine 2.16 H Glucose Level 112 Potassium Level 4.1 Sodium Level 138 Test 05/30/16 08:16 05/30/16 12:21 05/30/16 13:00 Bedside Glucose 158 169 Basophils # 0.0 Basophils % 0.2 Eosinophils # 0.2 Eosinophils % 3.8 Hematocrit 17.4 #L Hemoglobin 5.7 #*L Lymphocytes # 2.1 Lymphocytes % 50.5 Mean Corpuscular Hemoglobin 35.8 H Mean Corpuscular Hemoglobin Concent 32.8 Mean Corpuscular Volume 109.4 H Mean Platelet Volume 11.3 H Monocytes # 0.5 Monocytes % 12.6 H Neutrophils # 1.4 L Neutrophils % 32.7 L Nucleated Red Blood Cells # 0.0 Nucleated Red Blood Cells % 0.0 Platelet Count 36 #L Red Blood Count 1.59 #L Red Cell Distribution Width 19.9 H White Blood Count 4.2 #L Medications Medications Current Medications Ondansetron HCl (Zofran Inj) 4 mg Q6H PRN IV NAUSEA AND/OR VOMITING Last administered on 05/25/16 02:00; Admin Dose 4 MG; Start 05/22/16 at 13:30 Acetaminophen/ Hydrocodone Bitart ([place] (5/325)) 1 tab Q6H PRN PO MODERATE PAIN LEVEL 4-6; Start 05/22/16 at 13:30 Magnesium Hydroxide (Milk Of Mag) 30 ml DAILY PRN PO CONSTIPATION; Start at 13:30 Bisacodyl (Dulcolax) 5 mg DAILY PRN PO CONSTIPATION Last administered on 21:11; Admin Dose 5 MG; Start 05/22/16 at 13:30 Hydralazine HCl (Apresoline) 10 mg Q6H PRN IV SBP>160; Start 05/22/16 at 14:00 Lamivudine (Epivir) 150 mg DAILY PO Last administered on 05/30/16 09:12; Admin Dose 150 MG; Start 05/23/16 at 09:00 Lubiprostone (Amitiza) 8 mcg BID PO Last administered on 05/30/16 09:12; Admin Dose 8 MCG; Start 05/22/16 at 21:00 Salmeterol Xinafoate/ Fluticasone (Advair 250/50 Diskus) 1 inh BID INH Last administered on 05/29/16 20:54; Admin Dose 1 INH; Start 05/22/16 at 21:00 Tamsulosin HCl 0.4 mg 0.4 mg HS PO Last administered on 05/29/16 20:53; Admin Dose 0.4 MG; Start 05/22/16 at 21:00 Dextrose/Sodium Chloride (D5-NS) 1,000 ml @ 50 mls/hr Q20H IV Last administered on 05/30/16 05:24; Admin Dose 50 MLS/HR; Start 05/22/16 at 17:00 Miscellaneous Information 1 ea NOTE XX ; Start 05/22/16 at 17:00 Glucose (Glutose) 15 gm Q15M PRN PO DECREASED GLUCOSE; Start 05/22/16 at 17:00 Glucose (Glutose) 22.5 gm Q15M PRN PO DECREASED GLUCOSE; Start 05/22/16 at 17:00 Dextrose (D50w Syringe) 25 ml Q15M PRN IV DECREASED GLUCOSE; Start 05/22/16 at 17:00 Dextrose (D50w Syringe) 50 ml Q15M PRN IV DECREASED GLUCOSE; Start 05/22/16 at 17:00 Glucagon (Glucagen) 1 mg Q15M PRN IM DECREASED GLUCOSE; Start 05/22/16 at 17:00 Glucose (Glutose) 15 gm Q15M PRN BUCCAL DECREASED GLUCOSE; Start 05/22/16 at 17: 00 Pregabalin (Lyrica) 100 mg TID PO Last administered on 05/30/16 09:12; Admin Dose 100 MG; Start 05/24/16 at 13:00 Allopurinol 100 mg 100 mg DAILY PO Last administered on 05/30/16 09:12; Admin Dose 100 MG; Start 05/25/16 at 09:00 Albumin Human (Albumin Human 25%) 50 ml @ 100 mls/hr BID IV Last administered on 05/30/16 08:18; Admin Dose 100 MLS/HR; Start 05/24/16 at 21:30 Lactulose (Enulose) 20 gm Q8 PO Last administered on 3/14/17at 05:24; Admin Dose 20 GM; Start 05/25/16 at 22:00 Famotidine (Pepcid) 20 mg DAILY PO Last administered on 05/30/16t 09:12; Admin Dose 20 MG; Start 05/27/16 at 21:00 Acetaminophen (Tylenol Supp) 650 mg Q4H PRN [place] PAIN OR TEMP ABOVE 38C; Start at 10:00 Acetaminophen (Tylenol Tab) 650 mg Q4H PRN PO PAIN AND OR ELEVATED TEMP; Start 05/29/16 at 10:00 SANIA GRAHAM MD May 30, 2016 15:49
--- NOTE | 2016-05-30 17:34 | CONS ---
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 * Rule out esophageal varices * Portal hypertension * Encephalopathy * Coagulopathy * Significant ascites * Paroxysmal atrial fibrillation * Hypertension * Diabetes mellitus type 2 Plan: * CT abdomen tonight to rule out intraperitoneal bleeding * EGD tomorrow pending review of CT * Transfuse to hemoglobin above 7.5 * Close monitoring Consultation Date/Type/Reason Admit Date/Time May 22, 2016 at 11:30 Date of Consultation: May 30, 2016 Type of Consultation: GI Reason for Consultation * Acute anemia Hx of Present Illness 80-year-old male with known history of cirrhosis of the liver, hospitalized with change in mental status and accidental fall with no major injuries. The patient also has history of significant ascites has required paracenteses. We are requested to assist after the patient developed acute significant anemia. There is no evidence of overt gastrointestinal bleeding, given the patient's previous history and evidence of portal hypertension the possibility of gastrointestinal bleeding is high in the list of differential possibilities alternatively intraperitoneal bleeding post paracentesis remains an option. 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 * Ascites * Encephalopathy * Coagulopathy * Portal hypertension * Paroxysmal atrial fibrillation is diabetic diabetes mellitus type 2 * Hypertension Past Surgical History Past Surgical Hx: no surgical history Family History Significant Family History: no pertinent family hx Social History Alcohol Use: none Smoking Status: Former smoker Drug Use: none Exam/Review of Systems Vital Signs Vitals Vital Signs Date Time Temp Pulse Resp B/P Pulse Ox O2 Delivery O2 Flow Rate FiO2 05/30/16 12:49 70 87/51 05/30/16 08:12 98.4 18 97 05/29/16 12:15 Nasal Cannula 05/27/16 22:40 Intake and Output 05/29/16 05/29/16 05/30/16 15:00 23:00 07:00 Intake Total 50 ml 1150 ml 1270 ml Output Total 200 ml 450 ml Balance 50 ml 950 ml 820 ml Exam Constitutional: alert, obese, oriented, other (Distended with ascites), well developed Head: atraumatic, normocephalic Eyes: EOMI, PERRL, nl conjunctiva, nl lids, nl sclera ENMT: nl external ears & nose, nl lips & teeth, nl nasal mucosa & septum Neck: non-tender, supple Respiratory: clear to auscultation, normal air movement Cardiovascular: irregular rhythm, nl pulses Gastrointestinal: ascites, bowel sounds, distended, non-tender, soft, No mass, No rebound or guarding, No tender Musculoskeletal: nl extremities to inspection Extremities: normal pulses Skin: nl turgor, No rash or lesions Lymph: nl lymph nodes Results Result Diagram: 05/30/16 1300 05/30/16 0500 Results 24 hrs Laboratory Tests Test 05/29/16 20:39 05/30/16 04:35 05/30/16 05:00 05/30/16 08:16 Bedside Glucose 175 158 Ammonia 41 H Iron Level 41 Magnesium Level 2.4 Percent Iron Saturation 65 H Total Iron Binding Capacity 63 L Anion Gap 12 Blood Urea Nitrogen 37 H Calcium Level 8.4 Carbon Dioxide Level 19 L Chloride Level 111 H Creatinine 2.16 H Glucose Level 112 Potassium Level 4.1 Sodium Level 138 Test 05/30/16 12:21 05/30/16 13:00 Bedside Glucose 169 Basophils # 0.0 Basophils % 0.2 Eosinophils # 0.2 Eosinophils % 3.8 Hematocrit 17.4 #L Hemoglobin 5.7 #*L Lymphocytes # 2.1 Lymphocytes % 50.5 Mean Corpuscular Hemoglobin 35.8 H Mean Corpuscular Hemoglobin Concent 32.8 Mean Corpuscular Volume 109.4 H Mean Platelet Volume 11.3 H Monocytes # 0.5 Monocytes % 12.6 H Neutrophils # 1.4 L Neutrophils % 32.7 L Nucleated Red Blood Cells # 0.0 Nucleated Red Blood Cells % 0.0 Platelet Count 36 #L Red Blood Count 1.59 #L Red Cell Distribution Width 19.9 H Vitamin B12 Level 759 White Blood Count 4.2 #L Medications Medications Current Medications Ondansetron HCl (Zofran Inj) 4 mg Q6H PRN IV NAUSEA AND/OR VOMITING Last administered on 05/25/16t 02:00; Admin Dose 4 MG; Start 05/22/16 at 13:30 Acetaminophen/ Hydrocodone Bitart ([place] (5/325)) 1 tab Q6H PRN PO MODERATE PAIN LEVEL 4-6; Start 05/22/16 at 13:30 Magnesium Hydroxide (Milk Of Mag) 30 ml DAILY PRN PO CONSTIPATION; Start at 13:30 Bisacodyl (Dulcolax) 5 mg DAILY PRN PO CONSTIPATION Last administered on 21:11; Admin Dose 5 MG; Start 05/22/16 at 13:30 Hydralazine HCl (Apresoline) 10 mg Q6H PRN IV SBP>160; Start 05/22/16 at 14:00 Lamivudine (Epivir) 150 mg DAILY PO Last administered on 05/30/16 09:12; Admin Dose 150 MG; Start 05/23/16 at 09:00 Lubiprostone (Amitiza) 8 mcg BID PO Last administered on 05/30/16 09:12; Admin Dose 8 MCG; Start 05/22/16 at 21:00 Salmeterol Xinafoate/ Fluticasone (Advair 250/50 Diskus) 1 inh BID INH Last administered on 05/29/16 20:54; Admin Dose 1 INH; Start 05/22/16 at 21:00 Tamsulosin HCl 0.4 mg 0.4 mg HS PO Last administered on 05/29/16 20:53; Admin Dose 0.4 MG; Start 05/22/16 at 21:00 Dextrose/Sodium Chloride (D5-NS) 1,000 ml @ 50 mls/hr Q20H IV Last administered on 05/30/16 05:24; Admin Dose 50 MLS/HR; Start 05/22/16 at 17:00 Miscellaneous Information 1 ea NOTE XX ; Start 05/22/16 at 17:00 Glucose (Glutose) 15 gm Q15M PRN PO DECREASED GLUCOSE; Start 05/22/16 at 17:00 Glucose (Glutose) 22.5 gm Q15M PRN PO DECREASED GLUCOSE; Start 05/22/16 at 17:00 Dextrose (D50w Syringe) 25 ml Q15M PRN IV DECREASED GLUCOSE; Start 05/22/16 at 17:00 Dextrose (D50w Syringe) 50 ml Q15M PRN IV DECREASED GLUCOSE; Start 05/22/16 at 17:00 Glucagon (Glucagen) 1 mg Q15M PRN IM DECREASED GLUCOSE; Start 05/22/16 at 17:00 Glucose (Glutose) 15 gm Q15M PRN BUCCAL DECREASED GLUCOSE; Start 05/22/16 at 17: 00 Pregabalin (Lyrica) 100 mg TID PO Last administered on 05/30/16 09:12; Admin Dose 100 MG; Start 05/24/16 at 13:00 Allopurinol 100 mg 100 mg DAILY PO Last administered on 05/30/16 09:12; Admin Dose 100 MG; Start 05/25/16 at 09:00 Albumin Human (Albumin Human 25%) 50 ml @ 100 mls/hr BID IV Last administered on 05/30/16 08:18; Admin Dose 100 MLS/HR; Start 05/24/16 at 21:30 Lactulose (Enulose) 20 gm Q8 PO Last administered on 05/30/16 05:24; Admin Dose 20 GM; Start 05/25/16 at 22:00 Famotidine (Pepcid) 20 mg DAILY PO Last administered on 05/30/16 09:12; Admin Dose 20 MG; Start 05/27/16 at 21:00 Acetaminophen (Tylenol Supp) 650 mg Q4H PRN [place] PAIN OR TEMP ABOVE 38C; Start at 10:00 Acetaminophen (Tylenol Tab) 650 mg Q4H PRN PO PAIN AND OR ELEVATED TEMP; Start 05/29/16 at 10:00 CAROLINE MARIN MD May 30, 2016 17:33
[2016-05-30] MEDS ORDERED: BARIUM SULF 2% 450 ML BTL (BERRY SMOOTHIE) PO ONE (18:00)
[2016-05-30] MEDS: TAMSULOSIN (SR) 0.4 MG CAP PO SCH (20:18)
[2016-05-30 23:10] LABS: HEMATOCRIT 21.7 % (42.0-52.0); HEMOGLOBIN 7.4 g/dl (14.0-18.0)
[2016-05-31 00:56] LABS: HEMATOCRIT 22.2 % (42.0-52.0); HEMOGLOBIN 7.6 g/dl (14.0-18.0)
[2016-05-31] MEDS: DEXTROSE 5%-0.9% NACL 1,000 ML IV SCH ×2 (02:52→11:31)
[2016-05-31] MEDS: LACTULOSE 30ML CUP PO SCH ×3 (05:39→21:58)
[2016-05-31] MEDS: LEVOTHYROXINE 25 MCG TAB PO SCH (05:39)
--- NOTE | 2016-05-31 06:50 | PN ---
DATE: 05/30/2016 CARDIOLOGY FOLLOWUP PROGRESS NOTE SUBJECTIVE: Discussed with the staff. Rhythm strip was reviewed. Patient is still confused. There is no reported left-sided chest pain or pressure. Blood pressure has been on the low side. He had ____ done yesterday ____ that was removed. MEDICATIONS: Reviewed. PHYSICAL EXAMINATION: VITAL SIGNS: Temperature 97.6, heart rate of 73, blood pressure of 83/47, respiratory rate of 16. HEENT: Normocephalic, atraumatic. Appears in no acute distress. Pupils equal and round. CARDIOVASCULAR: Regular rate and rhythm, systolic murmur. PULMONARY: With no wheezes heard. GASTROINTESTINAL: Soft, nontender. EXTREMITIES: With trivial lower extremity edema. NEUROLOGIC: Awake and alert. PSYCHIATRIC: Confused. LABORATORY: Sodium 138, potassium 4.1, BUN of 37, creatinine 2.16, glucose 112. ASSESSMENT AND PLAN: 1. History of arrhythmia, bradycardia, currently heart rate remains stable. 2. Hepatic encephalopathy. 3. Liver cirrhosis. 4. Ascites. 5. Renal failure. 6. History of hypertension, currently hypotensive. 7. Thyroid disorder. 8. Diabetes and pancytopenia. RECOMMENDATIONS: The patient has had more than 10 latanoprost since yesterday. Fluid management as per renal. He is off all the blood pressure medication ____ his hypertension. Heart rate has jesus ined stable. Off of any anticoagulation due to concern about the bleeding. Dictated By: ENID TAYLOR MD AV/WAN Conf#: [id number] DID#: [id number] CC: MERISSA DURAN SENIOR SOLUTIONS ARCHITECT;*EndCC*
[2016-05-31] MEDS: INSULIN ASPART [NOVOLOG] 3 ML PEN SC SCH ×4 (07:30→20:54)
[2016-05-31 07:49] VITALS: BP 105/58; RESP 18
[2016-05-31 07:55] LABS: ADD SCAN DIFF NO
[2016-05-31 08:01] LABS: ABNORMAL IP MESSAGE 1; HEMOGLOBIN 8.5 g/dl (14.0-18.0); MEAN CORPUSCULAR HEMOGLOBIN 33.9 pg (29.0-33.0); MEAN CORPUSCULAR VOLUME 99.6 fl (82.0-101.0); MEAN PLATELET VOLUME 9.7 fl (7.4-10.4); RED BLOOD COUNT 2.51 10^6/ul (4.70-6.10); RED CELL DISTRIBUTION WIDTH 22.4 % (11.5-14.5); WHITE BLOOD COUNT 4.2 10^3/ul (4.8-10.8)
[2016-05-31 08:06] LABS: PLATELET COUNT 29 10^3/UL (140-415)
[2016-05-31] MEDS: ALBUMIN HUMAN 25% 50 ML IV SCH ×2 (08:15→20:45)
[2016-05-31] MEDS: ALLOPURINOL 100 MG TAB PO SCH (08:16)
[2016-05-31] MEDS: LUBIPROSTONE 8 MCG CAPSULE PO SCH ×2 (08:16→20:49)
[2016-05-31] MEDS: PREGABALIN 100 MG CAP PO SCH ×3 (08:16→20:49)
[2016-05-31] MEDS: LAMIVUDINE 150 MG TAB PO SCH (08:16)
[2016-05-31] MEDS: FAMOTIDINE 20 MG TAB PO SCH (08:16)
[2016-05-31 08:22] LABS: POTASSIUM 4.2 mmol/L (3.5-5.1)
[2016-05-31 08:25] LABS: CALCIUM 8.5 mg/dl (8.4-10.2); CREATININE 2.04 mg/dl (0.61-1.24)
--- NOTE | 2016-05-31 10:25 | PN ---
DATE: 05/31/2016 CARDIOLOGY FOLLOWUP SUBJECTIVE: No new cardiac events. The patient is still confused but no reported chest pain or pre ssure. Heart rate has remained stable. Blood pressure on the low side but stable. MEDICATIONS: Reviewed. PHYSICAL EXAMINATION: VITAL SIGNS: Temperature 98, heart rate of 72, blood pressure 105/58, respiration rate of 18, satur ating 97%. HEENT: Normocephalic, atraumatic. Pupils are equal. CARDIOVASCULAR: Regular rate and rhythm, no systolic murmur. PULMONARY: No wheezes heard. GASTROINTESTINAL: Positive for distention and ascites. EXTREMITIES: With trivial edema. NEUROLOGIC: Awake, oriented to person. PSYCHIATRIC: Appears to be easily agitated. LABORATORY: WBC of 4.2, hemoglobin 8.5, platelets 229, sodium 139, potassium 4.2, BUN of 40, creati nine 2.04, glucose of 118. ASSESSMENT AND PLAN: 1. Arrhythmia, currently stable. Heart rate controlled. 2. Hepatic encephalopathy, slowly improved. 3. Liver cirrhosis. 4. Ascites, status post multiple paracenteses. 5. Renal failure, probably acute on chronic. Most likely related to hepatorenal syndrome. 6. History of hypertension, currently hypotensive. 7. Thyroid disorder. 8. Diabetes. 9. Anemia. 10. Thrombocytopenia. RECOMMENDATIONS: We will continue with the supportive care. Off of any blood pressure medication c urrently, heart rate has remained stable. Follow up with GI recommendation. Transfusion p.r.n. Dictated By: ENID TAYLOR MD AV/WAN Conf#: [id number] DID#: [id number] CC: MERISSA DURAN STRATEGIC INTELLIGENCE OFFICER;*EndCC*
[2016-05-31 10:40] LABS: EOSINOPHILS # 0.2 10^3/ul (0.0-0.5); LYMPHOCYTES # 1.6 10^3/ul (0.8-2.9); MONOCYTE # 0.2 10^3/ul (0.3-0.9); NEUTROPHIL # 2.2 10^3/ul (1.6-7.5); OVALOCYTES 1+
--- NOTE | 2016-05-31 12:55 | CONS ---
Date/Time of Note Date/Time of Note DATE: 05/31/16 TIME: 12:52 Assessment/Plan Assessment/Plan Additional Assessment/Plan 1. 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 GI bleeding with severe anemia s/p PRBC tarnsfusion, GI consulted yesterday 2. History of liver cirrhosis secondary to hepatitis C. 3. History of hypertension. 4. History of diabetes mellitus. 5. History of atrial fibrillation. 6. Hypothyroidism. 7. Acute hepatic encephalopathy secondary to high ammonia. 8. Coagulopathy secondary to liver cirrhosis. PLAN: Hb dropped to 5.7s/p PRBC transfusion, GI Consulted, Cr stable s/p paracentesis 10 L removed on 05/29/16- his diuretics lasix and spironolactone has been held due to low BP s/p family meeting, refused hospice care due to comorbidites, pt is not a candidate for renal replacement therapy will follow up Consultation Date/Type/Reason Admit Date/Time May 22, 2016 at 11:30 Initial Consult Date May Type of Consultation: NEPHROLOGY Reason for Consultation acute Kidney injury, Hepatic encephalopathy Referring Provider: ARLETTE MERIDA MD 24 HR Interval Summary Free Text/Dictation GI consulted for severe anemia and to rule out GI bleeding, S/p PRBC, Cr 2.04 Exam/Review of Systems Vital Signs Vitals Vital Signs Date Time Temp Pulse Resp B/P Pulse Ox O2 Delivery O2 Flow Rate FiO2 05/31/16 07:49 98.0 72 18 105/58 97 05/29/16 12:15 Nasal Cannula 05/27/16 22:40 Intake and Output 05/30/16 05/30/16 05/31/16 15:00 23:00 07:00 Intake Total 550 ml 1430 ml 885 ml Output Total 200 ml 550 ml Balance 550 ml 1230 ml 335 ml Results Result Diagram: 05/31/16 0745 05/31/16 0745 Results 24 hrs Laboratory Tests Test 05/30/16 13:00 05/30/16 18:17 05/30/16 20:25 05/30/16 22:49 Basophils # 0.0 Basophils % 0.2 Eosinophils # 0.2 Eosinophils % 3.8 Hematocrit 17.4 #L 21.7 #L Hemoglobin 5.7 #*L 7.4 #L Lymphocytes # 2.1 Lymphocytes % 50.5 Mean Corpuscular Hemoglobin 35.8 H Mean Corpuscular Hemoglobin Concent 32.8 Mean Corpuscular Volume 109.4 H Mean Platelet Volume 11.3 H Monocytes # 0.5 Monocytes % 12.6 H Neutrophils # 1.4 L Neutrophils % 32.7 L Nucleated Red Blood Cells # 0.0 Nucleated Red Blood Cells % 0.0 Platelet Count 36 #L Red Blood Count 1.59 #L Red Cell Distribution Width 19.9 H Vitamin B12 Level 759 White Blood Count 4.2 #L Bedside Glucose 130 123 Test 05/31/16 00:38 05/31/16 05:00 05/31/16 07:31 05/31/16 07:45 Hematocrit 22.2 L 25.0 L Hemoglobin 7.6 L 8.5 L Stool Occult Blood POSITIVE Bedside Glucose 128 Anion Gap 15 Blood Urea Nitrogen 40 H Calcium Level 8.5 Carbon Dioxide Level 17 L Chloride Level 111 H Creatinine 2.04 H Eosinophils # 0.2 Eosinophils % 5.0 Glucose Level 118 Lymphocytes # 1.6 Lymphocytes % 38.0 Mean Corpuscular Hemoglobin 33.9 H Mean Corpuscular Hemoglobin Concent 34.0 Mean Corpuscular Volume 99.6 Mean Platelet Volume 9.7 Monocytes # 0.2 L Monocytes % 5.0 Neutrophils # 2.2 Neutrophils % 52.0 Ovalocytes 1+ Platelet Count 29 *L Potassium Level 4.2 Red Blood Count 2.51 #L Red Cell Distribution Width 22.4 H Sodium Level 139 White Blood Count 4.2 L Test 05/31/16 11:30 Bedside Glucose 123 Medications Medications Current Medications Ondansetron HCl (Zofran Inj) 4 mg Q6H PRN IV NAUSEA AND/OR VOMITING Last administered on 05/25/16 02:00; Admin Dose 4 MG; Start 05/22/16 at 13:30 Acetaminophen/ Hydrocodone Bitart ([place] (5/325)) 1 tab Q6H PRN PO MODERATE PAIN LEVEL 4-6; Start 05/22/16 at 13:30 Magnesium Hydroxide (Milk Of Mag) 30 ml DAILY PRN PO CONSTIPATION; Start at 13:30 Bisacodyl (Dulcolax) 5 mg DAILY PRN PO CONSTIPATION Last administered on 21:11; Admin Dose 5 MG; Start 05/22/16 at 13:30 Hydralazine HCl (Apresoline) 10 mg Q6H PRN IV SBP>160; Start 05/22/16 at 14:00 Lamivudine (Epivir) 150 mg DAILY PO Last administered on 05/31/16 08:16; Admin Dose 150 MG; Start 05/23/16 at 09:00 Lubiprostone (Amitiza) 8 mcg BID PO Last administered on 05/31/16 08:16; Admin Dose 8 MCG; Start 05/22/16 at 21:00 Salmeterol Xinafoate/ Fluticasone (Advair 250/50 Diskus) 1 inh BID INH Last administered on 05/30/16 20:19; Admin Dose 1 INH; Start 05/22/16 at 21:00 Tamsulosin HCl 0.4 mg 0.4 mg HS PO Last administered on 05/30/16 20:18; Admin Dose 0.4 MG; Start 05/22/16 at 21:00 Dextrose/Sodium Chloride (D5-NS) 1,000 ml @ 50 mls/hr Q20H IV Last administered on 05/31/16 11:31; Admin Dose 50 MLS/HR; Start 05/22/16 at 17:00 Miscellaneous Information 1 ea NOTE XX ; Start 05/22/16 at 17:00 Glucose (Glutose) 15 gm Q15M PRN PO DECREASED GLUCOSE; Start 05/22/16 at 17:00 Glucose (Glutose) 22.5 gm Q15M PRN PO DECREASED GLUCOSE; Start 05/22/16 at 17:00 Dextrose (D50w Syringe) 25 ml Q15M PRN IV DECREASED GLUCOSE; Start 05/22/16 at 17:00 Dextrose (D50w Syringe) 50 ml Q15M PRN IV DECREASED GLUCOSE; Start 05/22/16 at 17:00 Glucagon (Glucagen) 1 mg Q15M PRN IM DECREASED GLUCOSE; Start 05/22/16 at 17:00 Glucose (Glutose) 15 gm Q15M PRN BUCCAL DECREASED GLUCOSE; Start 05/22/16 at 17: 00 Pregabalin (Lyrica) 100 mg TID PO Last administered on 05/31/16 08:16; Admin Dose 100 MG; Start 05/24/16 at 13:00 Allopurinol 100 mg 100 mg DAILY PO Last administered on 05/31/16 08:16; Admin Dose 100 MG; Start 05/25/16 at 09:00 Albumin Human (Albumin Human 25%) 50 ml @ 100 mls/hr BID IV Last administered on 05/31/16 08:15; Admin Dose 100 MLS/HR; Start 05/24/16 at 21:30 Lactulose (Enulose) 20 gm Q8 PO Last administered on 05/31/16 05:39; Admin Dose 20 GM; Start 05/25/16 at 22:00 Famotidine (Pepcid) 20 mg DAILY PO Last administered on 05/31/16 08:16; Admin Dose 20 MG; Start 05/27/16 at 21:00 Acetaminophen (Tylenol Supp) 650 mg Q4H PRN [place] PAIN OR TEMP ABOVE 38C; Start at 10:00 Acetaminophen (Tylenol Tab) 650 mg Q4H PRN PO PAIN AND OR ELEVATED TEMP; Start 05/29/16 at 10:00 SANIA GRAHAM MD May 31, 2016 12:55
--- NOTE | 2016-05-31 13:44 | RADRPT ---
PROCEDURE: CT Abdomen and Pelvis without contrast. CLINICAL INDICATION: Pain, evaluate for intraperitoneal bleeding TECHNIQUE: CT of the abdomen and pelvis was performed on a multi-detector scanner without IV contr ast. Coronal and sagittal images were reformatted from the axial data set. One or more of the foll owing dose reduction techniques were used: automated exposure control, adjustment of the mA and/or kV according to patient size, use of iterative reconstruction technique. CTDI = 16.81 mGy. DLP = 12 35.32 mGy-cm. COMPARISON: Ultrasound, 05/29/2016 FINDINGS: CT abdomen: Bibasilar atelectasis is noted. There are small bilateral pleural effusions. The heart size is nor mal, without pericardial effusion. Coronary arterial calcifications are present. The liver is cirr hotic. No gross evidence of focal hepatic mass is identified. Gallbladder, biliary tree and pancre as are unremarkable. Splenomegaly is noted measuring 14 cm. Perisplenic varices are noted. Adrena l glands and kidneys are unremarkable. No urolithiasis or obstructive uropathy is identified. The stomach is grossly unremarkable. The aorta is of normal caliber. Aortic vascular calcifications are present. There is no retroperit sun lymphadenopathy. The lela hepatis region is clear. CT pelvis: Large amount of low-density ascites is present. There is no bowel obstruction, free intraperitoneal air, abscess, or evidence of hemoperitoneum. Sigmoid diverticulosis is seen without diverticulitis . There is no appendicitis or colitis. Rodriguez catheter balloon is within the urinary bladder. Flui d containing left inguinal/scrotal hernia is noted, without incarceration. No pelvic mass or lympha denopathy is seen. Anasarca is noted. The surrounding osseous structures are remarkable for degenerative spondylosis of the spine. No ost eolytic or osteoblastic lesion is detected. IMPRESSION: 1. The liver is cirrhotic, with signs of portal hypertension including splenomegaly, perisplenic va rices, and large amount of low-density ascites. 2. No evidence of hemoperitoneum or retroperitoneal hematoma is identified. 3. Coronary arterial and aortoiliac atherosclerotic calcifications are present. 4. Sigmoid diverticulosis is seen without diverticulitis. 5. Rodriguez catheter balloon is within the urinary bladder. 6. Fluid containing left inguinal/scrotal hernia is noted, without incarceration. 7. Anasarca is noted. RPTAT: EE .Glen Clark MD, MD Date Time Electronically viewed and signed by .Glen Clark MD, MD on 05/31/2016 13:44 .R/
[2016-05-31] MEDS: SALMETEROL/FLUTICASONE 250/50 INHA INH SCH ×2 (13:45→20:49)
[2016-05-31 13:57] LABS: HEMATOCRIT 25.8 % (42.0-52.0); HEMOGLOBIN 8.7 g/dl (14.0-18.0)
--- NOTE | 2016-05-31 14:22 | PN ---
Date/Time of Note Date/Time of Note DATE: 05/31/16 TIME: 14:16 Assessment/Plan VTE Prophylaxis VTE Prophylaxis Intervention: SCD's Lines/Catheters IV [facility] ([facility] Peripheral IV Urinary Cath still in place: Yes Reason Cath still needed: other (indicate) (monitor I&O) Assessment/Plan Chief Complaint/Hosp Course Assessment and plan 1. Acute encephalopathy secondary to hepatic insufficiency. Remains on lactulose. CT scan of the brain was negative for any acute intracranial findings. Continue fall precautions. More alert today 2. Paroxysmal atrial fibrillation. No plan for anticoagulation due to underlying encephalopathy and risk for falls as well as coagulopathy from liver cirrhosis. Continue with cardiology recommendations. Continue to monitor 3. History of CKD. Avoid nephrotoxic medications. . Follow up with behavioral health professional recommendations. Check follow-up renal panel 4. Abdominal ascites. Patient is status post paracentesis on May 23, 2016 with roughly 10 L of fluid removed. Patient again with abdominal distention. Did have repeat paracentesis with roughly 10.7 L of serous fluid removed (May 29, 2016). Monitor for hypotension 5. Hyperammonemia. Continue lactulose. Stable 6. Hypothyroidism. Tinea Synthroid 7. Macrocytic anemia secondary to liver cirrhosis. Status post transfusion. Monitor H&H and transfuse as needed 8. Coagulopathy secondary to underlying liver cirrhosis. Monitor for signs and symptoms of bleed. Anticoagulation not given at this time. DVT prophylaxis: His SCDs Disposition and plan: Patient remains in poor prognosis. Remains DNR. Family not wanting hospice at this time. Continue anemia workup. Follow-up with GI recommendations. Monitor renal panel. Discharge when medically stable and cleared by consultants Discussed plan of care with Dr. John Problems: Subjective 24 Hr Interval Summary Free Text/Dictation Await. More responsive at this time. Still noted with abdominal distention Exam/Review of Systems Vital Signs Vitals Vital Signs Date Time Temp Pulse Resp B/P Pulse Ox O2 Delivery O2 Flow Rate FiO2 05/31/16 07:49 98.0 72 18 105/58 97 05/29/16 12:15 Nasal Cannula 05/27/16 22:40 Intake and Output 05/30/16 05/30/16 05/31/16 14:59 22:59 06:59 Intake Total 550 ml 1430 ml 885 ml Output Total 200 ml 550 ml Balance 550 ml 1230 ml 335 ml Exam General: more responsive. no s/s of distress Eyes: Pupils equal round still Neck: no obvious jvd Cardiac: regular rate, s1-s2 Pulmonary: No obvious wheezing or rhonchi today GI: Distended, still remains tender the patient Extremities: Noted with bilateral lower extremity edema Neurologic: Alert. Confused at times Results Result Diagram: 05/31/16 1325 05/31/16 0745 Results 24 hrs Laboratory Tests Test 05/30/16 18:17 05/30/16 20:25 05/30/16 22:49 05/31/16 00:38 Bedside Glucose 130 123 Hematocrit 21.7 #L 22.2 L Hemoglobin 7.4 #L 7.6 L Test 05/31/16 05:00 05/31/16 07:31 05/31/16 07:45 05/31/16 11:30 Stool Occult Blood POSITIVE Bedside Glucose 128 123 Anion Gap 15 Blood Urea Nitrogen 40 H Calcium Level 8.5 Carbon Dioxide Level 17 L Chloride Level 111 H Creatinine 2.04 H Eosinophils # 0.2 Eosinophils % 5.0 Glucose Level 118 Hematocrit 25.0 L Hemoglobin 8.5 L Lymphocytes # 1.6 Lymphocytes % 38.0 Mean Corpuscular Hemoglobin 33.9 H Mean Corpuscular Hemoglobin Concent 34.0 Mean Corpuscular Volume 99.6 Mean Platelet Volume 9.7 Monocytes # 0.2 L Monocytes % 5.0 Neutrophils # 2.2 Neutrophils % 52.0 Ovalocytes 1+ Platelet Count 29 *L Potassium Level 4.2 Red Blood Count 2.51 #L Red Cell Distribution Width 22.4 H Sodium Level 139 White Blood Count 4.2 L Test 05/31/16 13:25 Hematocrit 25.8 L Hemoglobin 8.7 L Medications Medications Current Medications Ondansetron HCl (Zofran Inj) 4 mg Q6H PRN IV NAUSEA AND/OR VOMITING Last administered on 05/25/16 02:00; Admin Dose 4 MG; Start 05/22/16 at 13:30 Acetaminophen/ Hydrocodone Bitart ([place] (5/325)) 1 tab Q6H PRN PO MODERATE PAIN LEVEL 4-6; Start 05/22/16 at 13:30 Magnesium Hydroxide (Milk Of Mag) 30 ml DAILY PRN PO CONSTIPATION; Start at 13:30 Bisacodyl (Dulcolax) 5 mg DAILY PRN PO CONSTIPATION Last administered on 21:11; Admin Dose 5 MG; Start 05/22/16 at 13:30 Hydralazine HCl (Apresoline) 10 mg Q6H PRN IV SBP>160; Start 05/22/16 at 14:00 Lamivudine (Epivir) 150 mg DAILY PO Last administered on 05/31/16 08:16; Admin Dose 150 MG; Start 05/23/16 at 09:00 Lubiprostone (Amitiza) 8 mcg BID PO Last administered on 05/31/16 08:16; Admin Dose 8 MCG; Start 05/22/16 at 21:00 Salmeterol Xinafoate/ Fluticasone (Advair 250/50 Diskus) 1 inh BID INH Last administered on 05/31/16 13:45; Admin Dose 1 INH; Start 05/22/16 at 21:00 Tamsulosin HCl 0.4 mg 0.4 mg HS PO Last administered on 05/30/16 20:18; Admin Dose 0.4 MG; Start 05/22/16 at 21:00 Dextrose/Sodium Chloride (D5-NS) 1,000 ml @ 50 mls/hr Q20H IV Last administered on 05/31/16 11:31; Admin Dose 50 MLS/HR; Start 05/22/16 at 17:00 Miscellaneous Information 1 ea NOTE XX ; Start 05/22/16 at 17:00 Glucose (Glutose) 15 gm Q15M PRN PO DECREASED GLUCOSE; Start 05/22/16 at 17:00 Glucose (Glutose) 22.5 gm Q15M PRN PO DECREASED GLUCOSE; Start 05/22/16 at 17:00 Dextrose (D50w Syringe) 25 ml Q15M PRN IV DECREASED GLUCOSE; Start 05/22/16 at 17:00 Dextrose (D50w Syringe) 50 ml Q15M PRN IV DECREASED GLUCOSE; Start 05/22/16 at 17:00 Glucagon (Glucagen) 1 mg Q15M PRN IM DECREASED GLUCOSE; Start 05/22/16 at 17:00 Glucose (Glutose) 15 gm Q15M PRN BUCCAL DECREASED GLUCOSE; Start 05/22/16 at 17: 00 Pregabalin (Lyrica) 100 mg TID PO Last administered on 05/31/16 13:45; Admin Dose 100 MG; Start 05/24/16 at 13:00 Allopurinol 100 mg 100 mg DAILY PO Last administered on 05/31/16 08:16; Admin Dose 100 MG; Start 05/25/16 at 09:00 Albumin Human (Albumin Human 25%) 50 ml @ 100 mls/hr BID IV Last administered on 05/31/16 08:15; Admin Dose 100 MLS/HR; Start 05/24/16 at 21:30 Lactulose (Enulose) 20 gm Q8 PO Last administered on 05/31/16 13:45; Admin Dose 20 GM; Start 05/25/16 at 22:00 Famotidine (Pepcid) 20 mg DAILY PO Last administered on 05/31/16 08:16; Admin Dose 20 MG; Start 05/27/16 at 21:00 Acetaminophen (Tylenol Supp) 650 mg Q4H PRN [place] PAIN OR TEMP ABOVE 38C; Start at 10:00 Acetaminophen (Tylenol Tab) 650 mg Q4H PRN PO PAIN AND OR ELEVATED TEMP; Start 05/29/16 at 10:00 MERISSA DURAN May 31, 2016 14:21
--- NOTE | 2016-05-31 19:31 | PN ---
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 Transfuse to hemoglobin above 7.5 * Close monitoring Subjective 24 Hr Interval Summary Free Text/Dictation Course reviewed with nursing staff The patient and family refused endoscopic examination They appeared to understand the implications We will continue present regimen treating empirically Exam/Review of Systems Vital Signs Vitals Vital Signs Date Time Temp Pulse Resp B/P Pulse Ox O2 Delivery O2 Flow Rate FiO2 05/31/16 07:49 98.0 72 18 105/58 97 05/29/16 12:15 Nasal Cannula 05/27/16 22:40 Intake and Output 05/30/16 05/30/16 05/31/16 15:00 23:00 07:00 Intake Total 550 ml 1430 ml 885 ml Output Total 200 ml 550 ml Balance 550 ml 1230 ml 335 ml Exam Constitutional: alert, obese, oriented, other (Distended with ascites), well developed Head: atraumatic, normocephalic Eyes: EOMI, PERRL, nl conjunctiva, nl lids, nl sclera ENMT: nl external ears & nose, nl lips & teeth, nl nasal mucosa & septum Neck: non-tender, supple Respiratory: clear to auscultation, normal air movement Cardiovascular: irregular rhythm, nl pulses Gastrointestinal: ascites, bowel sounds, distended, non-tender, soft, No mass, No rebound or guarding, No tender Musculoskeletal: nl extremities to inspection Extremities: normal pulses Skin: nl turgor, No rash or lesions Lymph: nl lymph nodes Results Result Diagram: 05/31/16 1325 05/31/16 0745 Results 24 hrs Laboratory Tests Test 05/30/16 20:25 05/30/16 22:49 05/31/16 00:38 05/31/16 05:00 Bedside Glucose 123 Hematocrit 21.7 #L 22.2 L Hemoglobin 7.4 #L 7.6 L Stool Occult Blood POSITIVE Test 05/31/16 07:31 05/31/16 07:45 05/31/16 11:30 05/31/16 13:25 Bedside Glucose 128 123 Anion Gap 15 Blood Urea Nitrogen 40 H Calcium Level 8.5 Carbon Dioxide Level 17 L Chloride Level 111 H Creatinine 2.04 H Eosinophils # 0.2 Eosinophils % 5.0 Glucose Level 118 Hematocrit 25.0 L 25.8 L Hemoglobin 8.5 L 8.7 L Lymphocytes # 1.6 Lymphocytes % 38.0 Mean Corpuscular Hemoglobin 33.9 H Mean Corpuscular Hemoglobin Concent 34.0 Mean Corpuscular Volume 99.6 Mean Platelet Volume 9.7 Monocytes # 0.2 L Monocytes % 5.0 Neutrophils # 2.2 Neutrophils % 52.0 Ovalocytes 1+ Platelet Count 29 *L Potassium Level 4.2 Red Blood Count 2.51 #L Red Cell Distribution Width 22.4 H Sodium Level 139 White Blood Count 4.2 L Test 05/31/16 16:20 Bedside Glucose 143 Medications Medications Current Medications Ondansetron HCl (Zofran Inj) 4 mg Q6H PRN IV NAUSEA AND/OR VOMITING Last administered on 05/25/16 02:00; Admin Dose 4 MG; Start 05/22/16 at 13:30 Acetaminophen/ Hydrocodone Bitart ([place] (5/325)) 1 tab Q6H PRN PO MODERATE PAIN LEVEL 4-6; Start 05/22/16 at 13:30 Magnesium Hydroxide (Milk Of Mag) 30 ml DAILY PRN PO CONSTIPATION; Start at 13:30 Bisacodyl (Dulcolax) 5 mg DAILY PRN PO CONSTIPATION Last administered on 21:11; Admin Dose 5 MG; Start 05/22/16 at 13:30 Hydralazine HCl (Apresoline) 10 mg Q6H PRN IV SBP>160; Start 05/22/16 at 14:00 Lamivudine (Epivir) 150 mg DAILY PO Last administered on 05/31/16 08:16; Admin Dose 150 MG; Start 05/23/16 at 09:00 Lubiprostone (Amitiza) 8 mcg BID PO Last administered on 05/31/16 08:16; Admin Dose 8 MCG; Start 05/22/16 at 21:00 Salmeterol Xinafoate/ Fluticasone (Advair 250/50 Diskus) 1 inh BID INH Last administered on 05/31/16 13:45; Admin Dose 1 INH; Start 05/22/16 at 21:00 Tamsulosin HCl 0.4 mg 0.4 mg HS PO Last administered on 05/30/16 20:18; Admin Dose 0.4 MG; Start 05/22/16 at 21:00 Dextrose/Sodium Chloride (D5-NS) 1,000 ml @ 50 mls/hr Q20H IV Last administered on 05/31/16 11:31; Admin Dose 50 MLS/HR; Start 05/22/16 at 17:00 Miscellaneous Information 1 ea NOTE XX ; Start 05/22/16 at 17:00 Glucose (Glutose) 15 gm Q15M PRN PO DECREASED GLUCOSE; Start 05/22/16 at 17:00 Glucose (Glutose) 22.5 gm Q15M PRN PO DECREASED GLUCOSE; Start 05/22/16 at 17:00 Dextrose (D50w Syringe) 25 ml Q15M PRN IV DECREASED GLUCOSE; Start 05/22/16 at 17:00 Dextrose (D50w Syringe) 50 ml Q15M PRN IV DECREASED GLUCOSE; Start 05/22/16 at 17:00 Glucagon (Glucagen) 1 mg Q15M PRN IM DECREASED GLUCOSE; Start 05/22/16 at 17:00 Glucose (Glutose) 15 gm Q15M PRN BUCCAL DECREASED GLUCOSE; Start 05/22/16 at 17: 00 Pregabalin (Lyrica) 100 mg TID PO Last administered on 05/31/16 13:45; Admin Dose 100 MG; Start 05/24/16 at 13:00 Allopurinol 100 mg 100 mg DAILY PO Last administered on 05/31/16 08:16; Admin Dose 100 MG; Start 05/25/16 at 09:00 Albumin Human (Albumin Human 25%) 50 ml @ 100 mls/hr BID IV Last administered on 05/31/16 08:15; Admin Dose 100 MLS/HR; Start 05/24/16 at 21:30 Lactulose (Enulose) 20 gm Q8 PO Last administered on 05/31/16 13:45; Admin Dose 20 GM; Start 05/25/16 at 22:00 Famotidine (Pepcid) 20 mg DAILY PO Last administered on 05/31/16 08:16; Admin Dose 20 MG; Start 05/27/16 at 21:00 Acetaminophen (Tylenol Supp) 650 mg Q4H PRN [place] PAIN OR TEMP ABOVE 38C; Start at 10:00 Acetaminophen (Tylenol Tab) 650 mg Q4H PRN PO PAIN AND OR ELEVATED TEMP; Start 05/29/16 at 10:00 CAROLINE MARIN MD May 31, 2016 19:30
[2016-05-31 20:03] VITALS: BP 121/55; RESP 18
[2016-05-31] MEDS: TAMSULOSIN (SR) 0.4 MG CAP PO SCH (20:49)
[2016-05-31] MEDS: ONDANSETRON 4 MG INJ IV PRN (22:01)
[2016-06-01 01:22] LABS: HEMATOCRIT 28.5 % (42.0-52.0); HEMOGLOBIN 9.8 g/dl (14.0-18.0)
[2016-06-01 05:48] LABS: ADD SCAN DIFF NO
[2016-06-01 05:55] LABS: ABNORMAL IP MESSAGE 1; BASOPHILS % 0.3 % (0.0-2.0); EOSINOPHILS # 0.1 10^3/ul (0.0-0.5); EOSINOPHILS % 1.6 % (0.0-7.0); HEMATOCRIT 27.7 % (42.0-52.0); HEMOGLOBIN 9.5 g/dl (14.0-18.0); LYMPHOCYTES # 1.1 10^3/ul (0.8-2.9); LYMPHOCYTES % 27.4 % (15.0-51.0); MEAN CORPUSCULAR HEMOGLOBIN 34.3 pg (29.0-33.0); MEAN CORPUSCULAR HGB CONC 34.3 g/dl (32.0-37.0); MEAN PLATELET VOLUME 10.8 fl (7.4-10.4); MONOCYTE # 0.3 10^3/ul (0.3-0.9); MONOCYTES % 7.3 % (0.0-11.0); NEUTROPHIL # 2.4 10^3/ul (1.6-7.5); NEUTROPHILS % 62.9 % (39.0-77.0); PLATELET COUNT 36 10^3/UL (140-415); RED BLOOD COUNT 2.77 10^6/ul (4.70-6.10); RED CELL DISTRIBUTION WIDTH 22.1 % (11.5-14.5); WHITE BLOOD COUNT 3.8 10^3/ul (4.8-10.8)
[2016-06-01 06:01] LABS: POTASSIUM 4.7 mmol/L (3.5-5.1)
[2016-06-01 06:03] LABS: CREATININE 1.95 mg/dl (0.61-1.24)
[2016-06-01] MEDS: LEVOTHYROXINE 25 MCG TAB PO SCH (06:03)
[2016-06-01] MEDS: LACTULOSE 30ML CUP PO SCH ×3 (06:03→21:39)
[2016-06-01 06:04] LABS: CALCIUM 8.7 mg/dl (8.4-10.2)
[2016-06-01] MEDS: LUBIPROSTONE 8 MCG CAPSULE PO SCH ×2 (08:03→20:32)
[2016-06-01] MEDS: FAMOTIDINE 20 MG TAB PO SCH (08:03)
[2016-06-01] MEDS: PREGABALIN 100 MG CAP PO SCH ×3 (08:03→20:32)
[2016-06-01] MEDS: ALLOPURINOL 100 MG TAB PO SCH (08:03)
[2016-06-01] MEDS: LAMIVUDINE 150 MG TAB PO SCH (08:03)
[2016-06-01] MEDS: SALMETEROL/FLUTICASONE 250/50 INHA INH SCH ×2 (08:04→20:42)
[2016-06-01] MEDS: INSULIN ASPART [NOVOLOG] 3 ML PEN SC SCH ×4 (08:05→21:00)
[2016-06-01 08:09] VITALS: BP 104/54; RESP 18
--- NOTE | 2016-06-01 12:19 | PN ---
Date/Time of Note Date/Time of Note DATE: 06/01/16 TIME: 12:15 Assessment/Plan VTE Prophylaxis VTE Prophylaxis Intervention: SCD's Lines/Catheters IV Catheter Type (from [facility] Urinary Cath still in place: Yes Assessment/Plan Chief Complaint/Hosp Course Assessment and plan 1. Acute encephalopathy secondary to hepatic insufficiency. Remains on lactulose. CT scan of the brain was negative for any acute intracranial findings. Continue fall precautions. Monitor neuro status 2. Paroxysmal atrial fibrillation. No plan for anticoagulation due to underlying encephalopathy and risk for falls as well as coagulopathy from liver cirrhosis. Continue with cardiology recommendations. Continue to monitor 3. History of CKD. Avoid nephrotoxic medications. . Is slightly improving. Diuretics per nephrology 4. Abdominal ascites. Patient is status post paracentesis on May 23, 2016 with roughly 10 L of fluid removed. Patient again with abdominal distention. Did have repeat paracentesis with roughly 10.7 L of serous fluid removed (May 29, 2016). Still again with distended abdomen. We'll plan for repeat paracentesis 5. Hyperammonemia. Continue lactulose. Stable 6. Hypothyroidism. cont Synthroid 7. Macrocytic anemia secondary to liver cirrhosis. Status post transfusion. Monitor H&H and transfuse as needed. Of note patient was seen by costume seamstress for possible GI bleed.family refusing invasive intervention. Continue with PPI medication for now 8. Coagulopathy secondary to underlying liver cirrhosis. Monitor for signs and symptoms of bleed. Anticoagulation not given at this time due to anemia. DVT prophylaxis: His SCDs Disposition and plan: Plan for repeat paracentesis. cont with nephrology recs . Discharge when medically stable Discussed plan of care with Dr. John Problems: Subjective 24 Hr Interval Summary Free Text/Dictation No apparent distress at this time. Noted with more distended abdomen Exam/Review of Systems Vital Signs Vitals Vital Signs Date Time Temp Pulse Resp B/P Pulse Ox O2 Delivery O2 Flow Rate FiO2 06/01/16 08:09 99.3 80 18 104/54 95 05/29/16 12:15 Nasal Cannula Intake and Output 05/31/16 05/31/16 06/01/16 15:00 23:00 07:00 Intake Total 350 ml 1020 ml 1080 ml Output Total 300 ml 450 ml Balance 350 ml 720 ml 630 ml Exam General: Slightly somnolent. No apparent distress Eyes: Pupils equal round. Does track Neck: Still mow JVD seen Cardiac: regular rate, s1-s2 Pulmonary: No adventitious lungs GI: More distended today. Minimally tender on palpation Extremities: Noted with bilateral lower extremity edema today Neurologic: Alert. Somnolent Results Result Diagram: 06/01/16 0435 06/01/16 0435 Results 24 hrs Laboratory Tests Test 05/31/16 13:25 05/31/16 16:20 05/31/16 20:00 05/31/16 20:53 Hematocrit 25.8 L 26.0 L Hemoglobin 8.7 L 9.0 L Bedside Glucose 143 138 Test 06/01/16 00:52 06/01/16 04:35 06/01/16 07:45 06/01/16 11:28 Hematocrit 28.5 L 27.7 L Hemoglobin 9.8 L 9.5 L Anion Gap 17 H Basophils # 0.0 Basophils % 0.3 Blood Urea Nitrogen 43 H Calcium Level 8.7 Carbon Dioxide Level 18 L Chloride Level 110 Creatinine 1.95 H Eosinophils # 0.1 Eosinophils % 1.6 Glucose Level 142 Lymphocytes # 1.1 Lymphocytes % 27.4 Mean Corpuscular Hemoglobin 34.3 H Mean Corpuscular Hemoglobin Concent 34.3 Mean Corpuscular Volume 100.0 Mean Platelet Volume 10.8 H Monocytes # 0.3 Monocytes % 7.3 Neutrophils # 2.4 Neutrophils % 62.9 Nucleated Red Blood Cells # 0.0 Nucleated Red Blood Cells % 0.0 Platelet Count 36 #L Potassium Level 4.7 Red Blood Count 2.77 L Red Cell Distribution Width 22.1 H Sodium Level 140 White Blood Count 3.8 L Bedside Glucose 153 133 Medications Medications Current Medications Ondansetron HCl (Zofran Inj) 4 mg Q6H PRN IV NAUSEA AND/OR VOMITING Last administered on 05/31/16 22:01; Admin Dose 4 MG; Start 05/22/16 at 13:30 Acetaminophen/ Hydrocodone Bitart ([place] (5/325)) 1 tab Q6H PRN PO MODERATE PAIN LEVEL 4-6; Start 05/22/16 at 13:30 Magnesium Hydroxide (Milk Of Mag) 30 ml DAILY PRN PO CONSTIPATION; Start at 13:30 Bisacodyl (Dulcolax) 5 mg DAILY PRN PO CONSTIPATION Last administered on 21:11; Admin Dose 5 MG; Start 05/22/16 at 13:30 Hydralazine HCl (Apresoline) 10 mg Q6H PRN IV SBP>160; Start 05/22/16 at 14:00 Lamivudine (Epivir) 150 mg DAILY PO Last administered on 06/01/16 08:03; Admin Dose 150 MG; Start 05/23/16 at 09:00 Lubiprostone (Amitiza) 8 mcg BID PO Last administered on 06/01/16 08:03; Admin Dose 8 MCG; Start 05/22/16 at 21:00 Salmeterol Xinafoate/ Fluticasone (Advair 250/50 Diskus) 1 inh BID INH Last administered on 06/01/16 08:04; Admin Dose 1 INH; Start 05/22/16 at 21:00 Tamsulosin HCl 0.4 mg 0.4 mg HS PO Last administered on 05/31/16 20:49; Admin Dose 0.4 MG; Start 05/22/16 at 21:00 Dextrose/Sodium Chloride (D5-NS) 1,000 ml @ 50 mls/hr Q20H IV Last administered on 05/31/16 11:31; Admin Dose 50 MLS/HR; Start 05/22/16 at 17:00 Miscellaneous Information 1 ea NOTE XX ; Start 05/22/16 at 17:00 Glucose (Glutose) 15 gm Q15M PRN PO DECREASED GLUCOSE; Start 05/22/16 at 17:00 Glucose (Glutose) 22.5 gm Q15M PRN PO DECREASED GLUCOSE; Start 05/22/16 at 17:00 Dextrose (D50w Syringe) 25 ml Q15M PRN IV DECREASED GLUCOSE; Start 05/22/16 at 17:00 Dextrose (D50w Syringe) 50 ml Q15M PRN IV DECREASED GLUCOSE; Start 05/22/16 at 17:00 Glucagon (Glucagen) 1 mg Q15M PRN IM DECREASED GLUCOSE; Start 05/22/16 at 17:00 Glucose (Glutose) 15 gm Q15M PRN BUCCAL DECREASED GLUCOSE; Start 05/22/16 at 17: 00 Pregabalin (Lyrica) 100 mg TID PO Last administered on 06/01/16 08:03; Admin Dose 100 MG; Start 05/24/16 at 13:00 Allopurinol 100 mg 100 mg DAILY PO Last administered on 06/01/16 08:03; Admin Dose 100 MG; Start 05/25/16 at 09:00 Albumin Human (Albumin Human 25%) 50 ml @ 100 mls/hr BID IV Last administered on 05/31/16 20:45; Admin Dose 100 MLS/HR; Start 05/24/16 at 21:30 Lactulose (Enulose) 20 gm Q8 PO Last administered on 06/01/16 06:03; Admin Dose 20 GM; Start 05/25/16 at 22:00 Famotidine (Pepcid) 20 mg DAILY PO Last administered on 06/01/16 08:03; Admin Dose 20 MG; Start 05/27/16 at 21:00 Acetaminophen (Tylenol Supp) 650 mg Q4H PRN IN PAIN OR TEMP ABOVE 38C; Start at 10:00 Acetaminophen (Tylenol Tab) 650 mg Q4H PRN PO PAIN AND OR ELEVATED TEMP; Start 05/29/16 at 10:00 MERISSA DURAN Jun 01, 2016 12:19
[2016-06-01] MEDS: FUROSEMIDE 40 MG INJ IV SCH (12:50)
[2016-06-01 12:51] LABS: HEMATOCRIT 26.8 % (42.0-52.0); HEMOGLOBIN 9.2 g/dl (14.0-18.0)
[2016-06-01] MEDS: ALBUMIN HUMAN 25% 50 ML IV SCH ×2 (12:51→20:27)
--- NOTE | 2016-06-01 13:36 | CONS ---
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 Transfuse to hemoglobin above 7.5 * Close monitoring Consultation Date/Type/Reason Admit Date/Time May 22, 2016 at 11:30 Initial Consult Date 05/30/16 Type of Consultation: GI Referring Provider: ARLETTE MERIDA MD 24 HR Interval Summary Free Text/Dictation Yosef diet paracentesis planned today hgb stable Exam/Review of Systems Vital Signs Vitals Vital Signs Date Time Temp Pulse Resp B/P Pulse Ox O2 Delivery O2 Flow Rate FiO2 06/01/16 08:09 99.3 80 18 104/54 95 05/29/16 12:15 Nasal Cannula Intake and Output 05/31/16 05/31/16 06/01/16 15:00 23:00 07:00 Intake Total 350 ml 1020 ml 1080 ml Output Total 300 ml 450 ml Balance 350 ml 720 ml 630 ml Exam Constitutional: alert, obese, oriented, other (Distended with ascites), well developed Head: atraumatic, normocephalic Eyes: EOMI, PERRL, nl conjunctiva, nl lids, nl sclera ENMT: nl external ears & nose, nl lips & teeth, nl nasal mucosa & septum Neck: non-tender, supple Respiratory: clear to auscultation, normal air movement Cardiovascular: irregular rhythm, nl pulses Gastrointestinal: ascites, bowel sounds, distended, non-tender, soft, No mass, No rebound or guarding, No tender Musculoskeletal: nl extremities to inspection Extremities: normal pulses Skin: nl turgor, No rash or lesions Lymph: nl lymph nodes Results Result Diagram: 06/01/16 1221 06/01/16 0435 Results 24 hrs Laboratory Tests Test 05/31/16 16:20 05/31/16 20:00 05/31/16 20:53 06/01/16 00:52 Bedside Glucose 143 138 Hematocrit 26.0 L 28.5 L Hemoglobin 9.0 L 9.8 L Test 06/01/16 04:35 06/01/16 07:45 06/01/16 11:28 06/01/16 12:21 Anion Gap 17 H Basophils # 0.0 Basophils % 0.3 Blood Urea Nitrogen 43 H Calcium Level 8.7 Carbon Dioxide Level 18 L Chloride Level 110 Creatinine 1.95 H Eosinophils # 0.1 Eosinophils % 1.6 Glucose Level 142 Hematocrit 27.7 L 26.8 L Hemoglobin 9.5 L 9.2 L Lymphocytes # 1.1 Lymphocytes % 27.4 Mean Corpuscular Hemoglobin 34.3 H Mean Corpuscular Hemoglobin Concent 34.3 Mean Corpuscular Volume 100.0 Mean Platelet Volume 10.8 H Monocytes # 0.3 Monocytes % 7.3 Neutrophils # 2.4 Neutrophils % 62.9 Nucleated Red Blood Cells # 0.0 Nucleated Red Blood Cells % 0.0 Platelet Count 36 #L Potassium Level 4.7 Red Blood Count 2.77 L Red Cell Distribution Width 22.1 H Sodium Level 140 White Blood Count 3.8 L Bedside Glucose 153 133 Medications Medications Current Medications Ondansetron HCl (Zofran Inj) 4 mg Q6H PRN IV NAUSEA AND/OR VOMITING Last administered on 05/31/16 22:01; Admin Dose 4 MG; Start 05/22/16 at 13:30 Acetaminophen/ Hydrocodone Bitart ([place] (5/325)) 1 tab Q6H PRN PO MODERATE PAIN LEVEL 4-6; Start 05/22/16 at 13:30 Magnesium Hydroxide (Milk Of Mag) 30 ml DAILY PRN PO CONSTIPATION; Start at 13:30 Bisacodyl (Dulcolax) 5 mg DAILY PRN PO CONSTIPATION Last administered on 21:11; Admin Dose 5 MG; Start 05/22/16 at 13:30 Hydralazine HCl (Apresoline) 10 mg Q6H PRN IV SBP>160; Start 05/22/16 at 14:00 Lamivudine (Epivir) 150 mg DAILY PO Last administered on 06/01/16 08:03; Admin Dose 150 MG; Start 05/23/16 at 09:00 Lubiprostone (Amitiza) 8 mcg BID PO Last administered on 06/01/16 08:03; Admin Dose 8 MCG; Start 05/22/16 at 21:00 Salmeterol Xinafoate/ Fluticasone (Advair 250/50 Diskus) 1 inh BID INH Last administered on 06/01/16 08:04; Admin Dose 1 INH; Start 05/22/16 at 21:00 Tamsulosin HCl 0.4 mg 0.4 mg HS PO Last administered on 05/31/16 20:49; Admin Dose 0.4 MG; Start 05/22/16 at 21:00 Dextrose/Sodium Chloride (D5-NS) 1,000 ml @ 50 mls/hr Q20H IV Last administered on 05/31/16 11:31; Admin Dose 50 MLS/HR; Start 05/22/16 at 17:00 Miscellaneous Information 1 ea NOTE XX ; Start 05/22/16 at 17:00 Glucose (Glutose) 15 gm Q15M PRN PO DECREASED GLUCOSE; Start 05/22/16 at 17:00 Glucose (Glutose) 22.5 gm Q15M PRN PO DECREASED GLUCOSE; Start 05/22/16 at 17:00 Dextrose (D50w Syringe) 25 ml Q15M PRN IV DECREASED GLUCOSE; Start 05/22/16 at 17:00 Dextrose (D50w Syringe) 50 ml Q15M PRN IV DECREASED GLUCOSE; Start 05/22/16 at 17:00 Glucagon (Glucagen) 1 mg Q15M PRN IM DECREASED GLUCOSE; Start 05/22/16 at 17:00 Glucose (Glutose) 15 gm Q15M PRN BUCCAL DECREASED GLUCOSE; Start 05/22/16 at 17: 00 Pregabalin (Lyrica) 100 mg TID PO Last administered on 06/01/16 12:47; Admin Dose 100 MG; Start 05/24/16 at 13:00 Allopurinol 100 mg 100 mg DAILY PO Last administered on 06/01/16 08:03; Admin Dose 100 MG; Start 05/25/16 at 09:00 Albumin Human (Albumin Human 25%) 50 ml @ 100 mls/hr BID IV Last administered on 06/01/16 12:51; Admin Dose 100 MLS/HR; Start 05/24/16 at 21:30 Lactulose (Enulose) 20 gm Q8 PO Last administered on 06/01/16 06:03; Admin Dose 20 GM; Start 05/25/16 at 22:00 Famotidine (Pepcid) 20 mg DAILY PO Last administered on 06/01/16 08:03; Admin Dose 20 MG; Start 05/27/16 at 21:00 Acetaminophen (Tylenol Supp) 650 mg Q4H PRN [place] PAIN OR TEMP ABOVE 38C; Start at 10:00 Acetaminophen (Tylenol Tab) 650 mg Q4H PRN PO PAIN AND OR ELEVATED TEMP; Start 05/29/16 at 10:00 Furosemide (Lasix) 40 mg DAILY IV Last administered on 06/01/16 12:50; Admin Dose 40 MG; Start 06/01/16 at 12:30 EDGARDO SHERIFF Jun 01, 2016 13:36
[2016-06-01] MEDS: DEXTROSE 5%-0.9% NACL 1,000 ML IV SCH (16:20)
--- NOTE | 2016-06-01 17:09 | CONS ---
Date/Time of Note Date/Time of Note DATE: 06/01/16 TIME: 17:07 Assessment/Plan Assessment/Plan Additional Assessment/Plan 1. 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 GI bleeding with severe anemia s/p PRBC tarnsfusion, GI consulted yesterday 2. History of liver cirrhosis secondary to hepatitis C. 3. History of hypertension. 4. History of diabetes mellitus. 5. History of atrial fibrillation. 6. Hypothyroidism. 7. Acute hepatic encephalopathy secondary to high ammonia. 8. Coagulopathy secondary to liver cirrhosis. PLAN: Hb dropped to 5.7s/p PRBC transfusion, GI Consulted, Cr stable s/p paracentesis 10 L removed on 05/29/16- ok to resume diuretics on discharge Pt will need another paracentesis before discharge s/p family meeting, refused hospice care due to comorbidites, pt is not a candidate for renal replacement therapy will follow up Consultation Date/Type/Reason Admit Date/Time May 22, 2016 at 11:30 Initial Consult Date May Type of Consultation: NEPHROLOGY Referring Provider: ARLETTE MERIDA MD 24 HR Interval Summary Free Text/Dictation c/o abdominal distension, BP low Exam/Review of Systems Vital Signs Vitals Vital Signs Date Time Temp Pulse Resp B/P Pulse Ox O2 Delivery O2 Flow Rate FiO2 06/01/16 08:09 99.3 80 18 104/54 95 05/29/16 12:15 Nasal Cannula Intake and Output 05/31/16 05/31/16 06/01/16 15:00 23:00 07:00 Intake Total 350 ml 1020 ml 1080 ml Output Total 300 ml 450 ml Balance 350 ml 720 ml 630 ml Exam GENERAL: alwer but confused HEENT: Pupils equal, round, reactive to light and accommodation. No jaundice. NECK: Supple. HEART: S1, S2. Regular rhythm, no murmur. LUNGS: Decreased breath sounds at the right middle lobe, right lower lobe. No wheezing, no crackles. ABDOMEN: Soft, ascites is present, but nontender EXTREMITIES: 1 to 2+ pitting edema. Results Result Diagram: 06/01/16 1221 06/01/16 0435 Results 24 hrs Laboratory Tests Test 05/31/16 20:00 05/31/16 20:53 06/01/16 00:52 06/01/16 04:35 Hematocrit 26.0 L 28.5 L 27.7 L Hemoglobin 9.0 L 9.8 L 9.5 L Bedside Glucose 138 Anion Gap 17 H Basophils # 0.0 Basophils % 0.3 Blood Urea Nitrogen 43 H Calcium Level 8.7 Carbon Dioxide Level 18 L Chloride Level 110 Creatinine 1.95 H Eosinophils # 0.1 Eosinophils % 1.6 Glucose Level 142 Lymphocytes # 1.1 Lymphocytes % 27.4 Mean Corpuscular Hemoglobin 34.3 H Mean Corpuscular Hemoglobin Concent 34.3 Mean Corpuscular Volume 100.0 Mean Platelet Volume 10.8 H Monocytes # 0.3 Monocytes % 7.3 Neutrophils # 2.4 Neutrophils % 62.9 Nucleated Red Blood Cells # 0.0 Nucleated Red Blood Cells % 0.0 Platelet Count 36 #L Potassium Level 4.7 Red Blood Count 2.77 L Red Cell Distribution Width 22.1 H Sodium Level 140 White Blood Count 3.8 L Test 06/01/16 07:45 06/01/16 11:28 06/01/16 12:21 06/01/16 16:41 Bedside Glucose 153 133 167 Hematocrit 26.8 L Hemoglobin 9.2 L Medications Medications Current Medications Ondansetron HCl (Zofran Inj) 4 mg Q6H PRN IV NAUSEA AND/OR VOMITING Last administered on 05/31/16 22:01; Admin Dose 4 MG; Start 05/22/16 at 13:30 Acetaminophen/ Hydrocodone Bitart ([place] (5/325)) 1 tab Q6H PRN PO MODERATE PAIN LEVEL 4-6; Start 05/22/16 at 13:30 Magnesium Hydroxide (Milk Of Mag) 30 ml DAILY PRN PO CONSTIPATION; Start at 13:30 Bisacodyl (Dulcolax) 5 mg DAILY PRN PO CONSTIPATION Last administered on 21:11; Admin Dose 5 MG; Start 05/22/16 at 13:30 Hydralazine HCl (Apresoline) 10 mg Q6H PRN IV SBP>160; Start 05/22/16 at 14:00 Lamivudine (Epivir) 150 mg DAILY PO Last administered on 06/01/16 08:03; Admin Dose 150 MG; Start 05/23/16 at 09:00 Lubiprostone (Amitiza) 8 mcg BID PO Last administered on 06/01/16 08:03; Admin Dose 8 MCG; Start 05/22/16 at 21:00 Salmeterol Xinafoate/ Fluticasone (Advair 250/50 Diskus) 1 inh BID INH Last administered on 06/01/16 08:04; Admin Dose 1 INH; Start 05/22/16 at 21:00 Tamsulosin HCl 0.4 mg 0.4 mg HS PO Last administered on 05/31/16 20:49; Admin Dose 0.4 MG; Start 05/22/16 at 21:00 Dextrose/Sodium Chloride (D5-NS) 1,000 ml @ 50 mls/hr Q20H IV Last administered on 06/01/16 16:20; Admin Dose 50 MLS/HR; Start 05/22/16 at 17:00 Miscellaneous Information 1 ea NOTE XX ; Start 05/22/16 at 17:00 Glucose (Glutose) 15 gm Q15M PRN PO DECREASED GLUCOSE; Start 05/22/16 at 17:00 Glucose (Glutose) 22.5 gm Q15M PRN PO DECREASED GLUCOSE; Start 05/22/16 at 17:00 Dextrose (D50w Syringe) 25 ml Q15M PRN IV DECREASED GLUCOSE; Start 05/22/16 at 17:00 Dextrose (D50w Syringe) 50 ml Q15M PRN IV DECREASED GLUCOSE; Start 05/22/16 at 17:00 Glucagon (Glucagen) 1 mg Q15M PRN IM DECREASED GLUCOSE; Start 05/22/16 at 17:00 Glucose (Glutose) 15 gm Q15M PRN BUCCAL DECREASED GLUCOSE; Start 05/22/16 at 17: 00 Pregabalin (Lyrica) 100 mg TID PO Last administered on 06/01/16 12:47; Admin Dose 100 MG; Start 05/24/16 at 13:00 Allopurinol 100 mg 100 mg DAILY PO Last administered on 06/01/16 08:03; Admin Dose 100 MG; Start 05/25/16 at 09:00 Albumin Human (Albumin Human 25%) 50 ml @ 100 mls/hr BID IV Last administered on 06/01/16 12:51; Admin Dose 100 MLS/HR; Start 05/24/16 at 21:30 Lactulose (Enulose) 20 gm Q8 PO Last administered on 06/01/16 06:03; Admin Dose 20 GM; Start 05/25/16 at 22:00 Famotidine (Pepcid) 20 mg DAILY PO Last administered on 06/01/16 08:03; Admin Dose 20 MG; Start 05/27/16 at 21:00 Acetaminophen (Tylenol Supp) 650 mg Q4H PRN [place] PAIN OR TEMP ABOVE 38C; Start at 10:00 Acetaminophen (Tylenol Tab) 650 mg Q4H PRN PO PAIN AND OR ELEVATED TEMP; Start 05/29/16 at 10:00 Furosemide (Lasix) 40 mg DAILY IV Last administered on 06/01/16 12:50; Admin Dose 40 MG; Start 06/01/16 at 12:30 SANIA GRAHAM MD Jun 01, 2016 17:08
[2016-06-01 18:36] LABS: ADD SCAN DIFF NO
[2016-06-01 18:40] LABS: ABNORMAL IP MESSAGE 1; HEMATOCRIT 26.8 % (42.0-52.0); HEMOGLOBIN 9.2 g/dl (14.0-18.0); MEAN CORPUSCULAR HEMOGLOBIN 34.6 pg (29.0-33.0); MEAN CORPUSCULAR HGB CONC 34.3 g/dl (32.0-37.0); MEAN CORPUSCULAR VOLUME 100.8 fl (82.0-101.0); MEAN PLATELET VOLUME 11.1 fl (7.4-10.4); PLATELET COUNT 33 10^3/UL (140-415); RED BLOOD COUNT 2.66 10^6/ul (4.70-6.10); WHITE BLOOD COUNT 6.6 10^3/ul (4.8-10.8)
[2016-06-01 19:36] LABS: EOSINOPHILS # 0.1 10^3/ul (0.0-0.5); LYMPHOCYTES # 2.5 10^3/ul (0.8-2.9); MONOCYTE # 0.3 10^3/ul (0.3-0.9); NEUTROPHIL # 3.6 10^3/ul (1.6-7.5); PLATELET ESTIMATE PLT APPEAR DECREASED
[2016-06-01] MEDS: TAMSULOSIN (SR) 0.4 MG CAP PO SCH (20:32)
[2016-06-02 00:49] LABS: HEMATOCRIT 26.3 % (42.0-52.0); HEMOGLOBIN 8.9 g/dl (14.0-18.0)
[2016-06-02] MEDS: LACTULOSE 30ML CUP PO SCH ×3 (05:13→20:19)
[2016-06-02 05:21] LABS: ADD SCAN DIFF NO
[2016-06-02 05:25] LABS: ABNORMAL IP MESSAGE 1; BASOPHILS % 0.2 % (0.0-2.0); EOSINOPHILS # 0.1 10^3/ul (0.0-0.5); EOSINOPHILS % 1.7 % (0.0-7.0); HEMATOCRIT 26.2 % (42.0-52.0); HEMOGLOBIN 8.8 g/dl (14.0-18.0); LYMPHOCYTES # 1.7 10^3/ul (0.8-2.9); LYMPHOCYTES % 28.5 % (15.0-51.0); MEAN CORPUSCULAR HEMOGLOBIN 33.8 pg (29.0-33.0); MEAN CORPUSCULAR HGB CONC 33.6 g/dl (32.0-37.0); MEAN CORPUSCULAR VOLUME 100.8 fl (82.0-101.0); MEAN PLATELET VOLUME 12.9 fl (7.4-10.4); MONOCYTE # 0.6 10^3/ul (0.3-0.9); MONOCYTES % 9.2 % (0.0-11.0); NEUTROPHIL # 3.6 10^3/ul (1.6-7.5); NEUTROPHILS % 59.9 % (39.0-77.0); PLATELET COUNT 34 10^3/UL (140-415); WHITE BLOOD COUNT 6.1 10^3/ul (4.8-10.8)
[2016-06-02 05:49] LABS: POTASSIUM 4.5 mmol/L (3.5-5.1)
[2016-06-02 05:52] LABS: CREATININE 2.04 mg/dl (0.61-1.24)
[2016-06-02 05:53] LABS: CALCIUM 8.9 mg/dl (8.4-10.2)
[2016-06-02] MEDS: LEVOTHYROXINE 25 MCG TAB PO SCH (06:07)
[2016-06-02] MEDS: DEXTROSE 5%-0.9% NACL 1,000 ML IV SCH (07:26)
[2016-06-02 08:34] VITALS: BP 131/54; RESP 20
[2016-06-02] MEDS: INSULIN ASPART [NOVOLOG] 3 ML PEN SC SCH ×4 (08:43→20:20)
[2016-06-02] MEDS: LUBIPROSTONE 8 MCG CAPSULE PO SCH ×2 (08:44→20:19)
[2016-06-02] MEDS: SALMETEROL/FLUTICASONE 250/50 INHA INH SCH ×2 (08:44→20:17)
[2016-06-02] MEDS: LAMIVUDINE 150 MG TAB PO SCH (08:45)
[2016-06-02] MEDS: PREGABALIN 100 MG CAP PO SCH ×3 (08:45→20:19)
[2016-06-02] MEDS: FAMOTIDINE 20 MG TAB PO SCH (08:45)
[2016-06-02] MEDS: ALLOPURINOL 100 MG TAB PO SCH (08:45)
[2016-06-02] MEDS: FUROSEMIDE 40 MG INJ IV SCH (08:46)
[2016-06-02] MEDS: ALBUMIN HUMAN 25% 50 ML IV SCH ×2 (08:46→20:19)
--- NOTE | 2016-06-02 08:59 | PN ---
DATE: 06/01/2016 CARDIOLOGY FOLLOWUP PROGRESS NOTE SUBJECTIVE: Discussed with the staff. The patient is sleepy. No new cardiac complaints. MEDICATIONS: Reviewed. PHYSICAL EXAMINATION: VITAL SIGNS: Temperature 99.3, heart rate of 80, blood pressure 104/54, respiration rate of 18, sat urating 95%. HEENT: Normocephalic, atraumatic. CARDIOVASCULAR: Regular rate and rhythm. PULMONARY: No wheezes. GASTROINTESTINAL: Distended, positive ascites. EXTREMITIES: Trivial edema. NEUROLOGIC: Comfortably sleeping. LABORATORY: WBC of 3.8, hemoglobin 9.5, platelets of 36. Sodium 140, potassium 4.7, BUN of 43, cre atinine 1.95. ASSESSMENT AND PLAN: 1. Bradycardia has improved. 2. Liver cirrhosis. 3. Hepatic encephalopathy. 4. Hypertension, currently hypotensive. 5. Renal failure. RECOMMENDATIONS: We will continue with the current cardiac care. Follow with GI recommendations. Dictated By: ENID DICKSON/WAN Conf#: [id number] DID#: [id number]
--- NOTE | 2016-06-02 11:28 | CONS ---
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 Transfuse to hemoglobin above 7.5 * Close monitoring Consultation Date/Type/Reason Admit Date/Time May 22, 2016 at 11:30 Initial Consult Date 05/30/16 Type of Consultation: Gastroenterology Referring Provider: ARLETTE MERIDA MD 24 HR Interval Summary Free Text/Dictation Patient refusing meals Hemoglobin stable Exam/Review of Systems Vital Signs Vitals Vital Signs Date Time Temp Pulse Resp B/P Pulse Ox O2 Delivery O2 Flow Rate FiO2 06/02/16 08:34 98.4 77 20 131/54 96 05/29/16 12:15 Nasal Cannula Intake and Output 06/01/16 06/01/16 06/02/16 14:59 22:59 06:59 Intake Total 50 ml 650 ml 600 ml Output Total 300 ml Balance 50 ml 650 ml 300 ml Exam Constitutional: alert, obese, oriented, other (Distended with ascites), well developed Head: atraumatic, normocephalic Eyes: EOMI, PERRL, nl conjunctiva, nl lids, nl sclera ENMT: nl external ears & nose, nl lips & teeth, nl nasal mucosa & septum Neck: non-tender, supple Respiratory: clear to auscultation, normal air movement Cardiovascular: irregular rhythm, nl pulses Gastrointestinal: ascites, bowel sounds, distended, non-tender, soft, No mass, No rebound or guarding, No tender Musculoskeletal: nl extremities to inspection Extremities: normal pulses Skin: nl turgor, No rash or lesions Lymph: nl lymph nodes Results Result Diagram: 06/02/16 0438 06/02/16 0438 Results 24 hrs Laboratory Tests Test 06/01/16 11:28 06/01/16 12:21 06/01/16 16:41 06/01/16 18:20 Bedside Glucose 133 167 Hematocrit 26.8 L 26.8 L Hemoglobin 9.2 L 9.2 L Band Neutrophils % 1.0 Eosinophils # 0.1 Eosinophils % 1.0 Lymphocytes # 2.5 Lymphocytes % 38.0 Mean Corpuscular Hemoglobin 34.6 H Mean Corpuscular Hemoglobin Concent 34.3 Mean Corpuscular Volume 100.8 Mean Platelet Volume 11.1 H Monocytes # 0.3 Monocytes % 5.0 Neutrophils # 3.6 Neutrophils % 55.0 Platelet Count 33 L Platelet Estimate PLT APPEAR DECREASED Red Blood Count 2.66 L Red Cell Distribution Width 22.0 H White Blood Count 6.6 # Test 06/01/16 20:10 06/02/16 00:35 06/02/16 04:38 06/02/16 07:23 Bedside Glucose 156 147 Hematocrit 26.3 L 26.2 L Hemoglobin 8.9 L 8.8 L Anion Gap 15 Basophils # 0.0 Basophils % 0.2 Blood Urea Nitrogen 48 H Calcium Level 8.9 Carbon Dioxide Level 18 L Chloride Level 113 H Creatinine 2.04 H Eosinophils # 0.1 Eosinophils % 1.7 Glucose Level 138 Lymphocytes # 1.7 Lymphocytes % 28.5 Mean Corpuscular Hemoglobin 33.8 H Mean Corpuscular Hemoglobin Concent 33.6 Mean Corpuscular Volume 100.8 Mean Platelet Volume 12.9 H Monocytes # 0.6 Monocytes % 9.2 Neutrophils # 3.6 Neutrophils % 59.9 Nucleated Red Blood Cells # 0.0 Nucleated Red Blood Cells % 0.0 Platelet Count 34 L Potassium Level 4.5 Red Blood Count 2.60 L Red Cell Distribution Width 22.0 H Sodium Level 141 White Blood Count 6.1 Medications Medications Current Medications Ondansetron HCl (Zofran Inj) 4 mg Q6H PRN IV NAUSEA AND/OR VOMITING Last administered on 05/31/16 22:01; Admin Dose 4 MG; Start 05/22/16 at 13:30 Acetaminophen/ Hydrocodone Bitart ([place] (5/325)) 1 tab Q6H PRN PO MODERATE PAIN LEVEL 4-6; Start 05/22/16 at 13:30 Magnesium Hydroxide (Milk Of Mag) 30 ml DAILY PRN PO CONSTIPATION; Start at 13:30 Bisacodyl (Dulcolax) 5 mg DAILY PRN PO CONSTIPATION Last administered on 21:11; Admin Dose 5 MG; Start 05/22/16 at 13:30 Hydralazine HCl (Apresoline) 10 mg Q6H PRN IV SBP>160; Start 05/22/16 at 14:00 Lamivudine (Epivir) 150 mg DAILY PO Last administered on 06/02/16 08:45; Admin Dose 150 MG; Start 05/23/16 at 09:00 Lubiprostone (Amitiza) 8 mcg BID PO Last administered on 06/02/16 08:44; Admin Dose 8 MCG; Start 05/22/16 at 21:00 Salmeterol Xinafoate/ Fluticasone (Advair 250/50 Diskus) 1 inh BID INH Last administered on 06/02/16 08:44; Admin Dose 1 INH; Start 05/22/16 at 21:00 Tamsulosin HCl 0.4 mg 0.4 mg HS PO Last administered on 06/01/16 20:32; Admin Dose 0.4 MG; Start 05/22/16 at 21:00 Dextrose/Sodium Chloride (D5-NS) 1,000 ml @ 50 mls/hr Q20H IV Last administered on 06/02/16 07:26; Admin Dose 50 MLS/HR; Start 05/22/16 at 17:00 Miscellaneous Information 1 ea NOTE XX ; Start 05/22/16 at 17:00 Glucose (Glutose) 15 gm Q15M PRN PO DECREASED GLUCOSE; Start 05/22/16 at 17:00 Glucose (Glutose) 22.5 gm Q15M PRN PO DECREASED GLUCOSE; Start 05/22/16 at 17:00 Dextrose (D50w Syringe) 25 ml Q15M PRN IV DECREASED GLUCOSE; Start 05/22/16 at 17:00 Dextrose (D50w Syringe) 50 ml Q15M PRN IV DECREASED GLUCOSE; Start 05/22/16 at 17:00 Glucagon (Glucagen) 1 mg Q15M PRN IM DECREASED GLUCOSE; Start 05/22/16 at 17:00 Glucose (Glutose) 15 gm Q15M PRN BUCCAL DECREASED GLUCOSE; Start 05/22/16 at 17: 00 Pregabalin (Lyrica) 100 mg TID PO Last administered on 06/02/16 08:45; Admin Dose 100 MG; Start 05/24/16 at 13:00 Allopurinol 100 mg 100 mg DAILY PO Last administered on 06/02/16 08:45; Admin Dose 100 MG; Start 05/25/16 at 09:00 Albumin Human (Albumin Human 25%) 50 ml @ 100 mls/hr BID IV Last administered on 06/02/16 08:46; Admin Dose 100 MLS/HR; Start 05/24/16 at 21:30 Lactulose (Enulose) 20 gm Q8 PO Last administered on 06/02/16 05:13; Admin Dose 20 GM; Start 05/25/16 at 22:00 Famotidine (Pepcid) 20 mg DAILY PO Last administered on 06/02/16 08:45; Admin Dose 20 MG; Start 05/27/16 at 21:00 Acetaminophen (Tylenol Supp) 650 mg Q4H PRN [place] PAIN OR TEMP ABOVE 38C; Start at 10:00 Acetaminophen (Tylenol Tab) 650 mg Q4H PRN PO PAIN AND OR ELEVATED TEMP; Start 05/29/16 at 10:00 Furosemide (Lasix) 40 mg DAILY IV Last administered on 06/02/16 08:46; Admin Dose 40 MG; Start 06/01/16 at 12:30 EDGARDO SHERIFF Jun 02, 2016 11:28
[2016-06-02 11:38] LABS: ADD SCAN DIFF NO
[2016-06-02 11:42] LABS: ABNORMAL IP MESSAGE 1; BASOPHILS % 0.3 % (0.0-2.0); EOSINOPHILS # 0.1 10^3/ul (0.0-0.5); EOSINOPHILS % 1.6 % (0.0-7.0); HEMATOCRIT 23.7 % (42.0-52.0); HEMOGLOBIN 8.1 g/dl (14.0-18.0); LYMPHOCYTES # 1.7 10^3/ul (0.8-2.9); LYMPHOCYTES % 27.2 % (15.0-51.0); MEAN CORPUSCULAR HEMOGLOBIN 34.5 pg (29.0-33.0); MEAN CORPUSCULAR HGB CONC 34.2 g/dl (32.0-37.0); MEAN CORPUSCULAR VOLUME 100.9 fl (82.0-101.0); MEAN PLATELET VOLUME 11.5 fl (7.4-10.4); MONOCYTE # 0.6 10^3/ul (0.3-0.9); NEUTROPHIL # 3.7 10^3/ul (1.6-7.5); NEUTROPHILS % 61.2 % (39.0-77.0); RED BLOOD COUNT 2.35 10^6/ul (4.70-6.10); RED CELL DISTRIBUTION WIDTH 21.4 % (11.5-14.5); WHITE BLOOD COUNT 6.1 10^3/ul (4.8-10.8)
[2016-06-02 11:44] LABS: PLATELET COUNT 50 10^3/UL (140-415)
--- NOTE | 2016-06-02 12:19 | CONS ---
Date/Time of Note Date/Time of Note DATE: 06/02/16 TIME: 12:17 Assessment/Plan Assessment/Plan Additional Assessment/Plan 1. 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 GI bleeding with severe anemia s/p PRBC tarnsfusion, GI consulted yesterday 2. History of liver cirrhosis secondary to hepatitis C. 3. History of hypertension. 4. History of diabetes mellitus. 5. History of atrial fibrillation. 6. Hypothyroidism. 7. Acute hepatic encephalopathy secondary to high ammonia. 8. Coagulopathy secondary to liver cirrhosis. PLAN: Hb dropped to 5.7- s/p PRBC transfusion, GI Consulted, Cr stable s/p paracentesis 10 L removed on 05/29/16- ok to resume diuretics on discharge Pt will need another paracentesis before discharge s/p family meeting, refused hospice care due to comorbidites, pt is not a candidate for renal replacement therapy will follow up Consultation Date/Type/Reason Admit Date/Time May 22, 2016 at 11:30 Initial Consult Date May Type of Consultation: NEPHROLOGY Referring Provider: ARLETTE MERIDA MD 24 HR Interval Summary Free Text/Dictation afebrile, BP stable , need paracentesis today Exam/Review of Systems Vital Signs Vitals Vital Signs Date Time Temp Pulse Resp B/P Pulse Ox O2 Delivery O2 Flow Rate FiO2 06/02/16 08:34 98.4 77 20 131/54 96 05/29/16 12:15 Nasal Cannula Intake and Output 06/01/16 06/01/16 06/02/16 15:00 23:00 07:00 Intake Total 50 ml 650 ml 600 ml Output Total 300 ml Balance 50 ml 650 ml 300 ml Exam GENERAL: alwer but confused HEENT: Pupils equal, round, reactive to light and accommodation. No jaundice. NECK: Supple. HEART: S1, S2. Regular rhythm, no murmur. LUNGS: Decreased breath sounds at the right middle lobe, right lower lobe. No wheezing, no crackles. ABDOMEN: Soft, ascites is present, but nontender EXTREMITIES: 1 to 2+ pitting edema. Results Result Diagram: 06/02/16 1128 06/02/16 0438 Results 24 hrs Laboratory Tests Test 06/01/16 12:21 06/01/16 16:41 06/01/16 18:20 06/01/16 20:10 Hematocrit 26.8 L 26.8 L Hemoglobin 9.2 L 9.2 L Bedside Glucose 167 156 Band Neutrophils % 1.0 Eosinophils # 0.1 Eosinophils % 1.0 Lymphocytes # 2.5 Lymphocytes % 38.0 Mean Corpuscular Hemoglobin 34.6 H Mean Corpuscular Hemoglobin Concent 34.3 Mean Corpuscular Volume 100.8 Mean Platelet Volume 11.1 H Monocytes # 0.3 Monocytes % 5.0 Neutrophils # 3.6 Neutrophils % 55.0 Platelet Count 33 L Platelet Estimate PLT APPEAR DECREASED Red Blood Count 2.66 L Red Cell Distribution Width 22.0 H White Blood Count 6.6 # Test 06/02/16 00:35 06/02/16 04:38 06/02/16 07:23 06/02/16 11:28 Hematocrit 26.3 L 26.2 L 23.7 L Hemoglobin 8.9 L 8.8 L 8.1 L Anion Gap 15 Basophils # 0.0 0.0 Basophils % 0.2 0.3 Blood Urea Nitrogen 48 H Calcium Level 8.9 Carbon Dioxide Level 18 L Chloride Level 113 H Creatinine 2.04 H Eosinophils # 0.1 0.1 Eosinophils % 1.7 1.6 Glucose Level 138 Lymphocytes # 1.7 1.7 Lymphocytes % 28.5 27.2 Mean Corpuscular Hemoglobin 33.8 H 34.5 H Mean Corpuscular Hemoglobin Concent 33.6 34.2 Mean Corpuscular Volume 100.8 100.9 Mean Platelet Volume 12.9 H 11.5 H Monocytes # 0.6 0.6 Monocytes % 9.2 9.0 Neutrophils # 3.6 3.7 Neutrophils % 59.9 61.2 Nucleated Red Blood Cells # 0.0 0.0 Nucleated Red Blood Cells % 0.0 0.0 Platelet Count 34 L 50 #L Potassium Level 4.5 Red Blood Count 2.60 L 2.35 L Red Cell Distribution Width 22.0 H 21.4 H Sodium Level 141 White Blood Count 6.1 6.1 Bedside Glucose 147 Test 06/02/16 11:32 Bedside Glucose 136 Medications Medications Current Medications Ondansetron HCl (Zofran Inj) 4 mg Q6H PRN IV NAUSEA AND/OR VOMITING Last administered on 05/31/16t 22:01; Admin Dose 4 MG; Start 05/22/16 at 13:30 Acetaminophen/ Hydrocodone Bitart ([place] (5/325)) 1 tab Q6H PRN PO MODERATE PAIN LEVEL 4-6; Start 05/22/16 at 13:30 Magnesium Hydroxide (Milk Of Mag) 30 ml DAILY PRN PO CONSTIPATION; Start at 13:30 Bisacodyl (Dulcolax) 5 mg DAILY PRN PO CONSTIPATION Last administered on 21:11; Admin Dose 5 MG; Start 05/22/16 at 13:30 Hydralazine HCl (Apresoline) 10 mg Q6H PRN IV SBP>160; Start 05/22/16 at 14:00 Lamivudine (Epivir) 150 mg DAILY PO Last administered on 06/02/16 08:45; Admin Dose 150 MG; Start 05/23/16 at 09:00 Lubiprostone (Amitiza) 8 mcg BID PO Last administered on 06/02/16 08:44; Admin Dose 8 MCG; Start 05/22/16 at 21:00 Salmeterol Xinafoate/ Fluticasone (Advair 250/50 Diskus) 1 inh BID INH Last administered on 06/02/16 08:44; Admin Dose 1 INH; Start 05/22/16 at 21:00 Tamsulosin HCl 0.4 mg 0.4 mg HS PO Last administered on 06/01/16 20:32; Admin Dose 0.4 MG; Start 05/22/16 at 21:00 Dextrose/Sodium Chloride (D5-NS) 1,000 ml @ 50 mls/hr Q20H IV Last administered on 06/02/16 07:26; Admin Dose 50 MLS/HR; Start 05/22/16 at 17:00 Miscellaneous Information 1 ea NOTE XX ; Start 05/22/16 at 17:00 Glucose (Glutose) 15 gm Q15M PRN PO DECREASED GLUCOSE; Start 05/22/16 at 17:00 Glucose (Glutose) 22.5 gm Q15M PRN PO DECREASED GLUCOSE; Start 05/22/16 at 17:00 Dextrose (D50w Syringe) 25 ml Q15M PRN IV DECREASED GLUCOSE; Start 05/22/16 at 17:00 Dextrose (D50w Syringe) 50 ml Q15M PRN IV DECREASED GLUCOSE; Start 05/22/16 at 17:00 Glucagon (Glucagen) 1 mg Q15M PRN IM DECREASED GLUCOSE; Start 05/22/16 at 17:00 Glucose (Glutose) 15 gm Q15M PRN BUCCAL DECREASED GLUCOSE; Start 05/22/16 at 17: 00 Pregabalin (Lyrica) 100 mg TID PO Last administered on 06/02/16 08:45; Admin Dose 100 MG; Start 05/24/16 at 13:00 Allopurinol 100 mg 100 mg DAILY PO Last administered on 06/02/16 08:45; Admin Dose 100 MG; Start 05/25/16 at 09:00 Albumin Human (Albumin Human 25%) 50 ml @ 100 mls/hr BID IV Last administered on 06/02/16 08:46; Admin Dose 100 MLS/HR; Start 05/24/16 at 21:30 Lactulose (Enulose) 20 gm Q8 PO Last administered on 06/02/16 05:13; Admin Dose 20 GM; Start 05/25/16 at 22:00 Famotidine (Pepcid) 20 mg DAILY PO Last administered on 06/02/16 08:45; Admin Dose 20 MG; Start 05/27/16 at 21:00 Acetaminophen (Tylenol Supp) 650 mg Q4H PRN [place] PAIN OR TEMP ABOVE 38C; Start at 10:00 Acetaminophen (Tylenol Tab) 650 mg Q4H PRN PO PAIN AND OR ELEVATED TEMP; Start 05/29/16 at 10:00 Furosemide (Lasix) 40 mg DAILY IV Last administered on 06/02/16 08:46; Admin Dose 40 MG; Start 06/01/16 at 12:30 SANIA GRAHAM MD Jun 02, 2016 12:18
--- NOTE | 2016-06-02 12:54 | PN ---
Date/Time of Note Date/Time of Note DATE: 06/02/16 TIME: 12:49 Assessment/Plan VTE Prophylaxis VTE Prophylaxis Intervention: SCD's Lines/Catheters IV [facility] Urinary Cath still in place: Yes Assessment/Plan Chief Complaint/Hosp Course Assessment and plan 1. Acute encephalopathy secondary to hepatic insufficiency. Remains on lactulose. CT scan of the brain was negative for any acute intracranial findings. Continue fall precautions. Monitor neuro status 2. Paroxysmal atrial fibrillation. No plan for anticoagulation due to underlying encephalopathy and risk for falls as well as coagulopathy from liver cirrhosis. Continue with cardiology recommendations. stable at present 3. History of CKD. Avoid nephrotoxic medications. . appears stable and at baseline. Diuretics per nephrology 4. Abdominal ascites. Patient is status post paracentesis on May 23, 2016 with roughly 10 L of fluid removed. Patient again with abdominal distention. Did have repeat paracentesis with roughly 10.7 L of serous fluid removed (May 29, 2016). Still again with distended abdomen. We'll plan for repeat paracentesis 5. Hyperammonemia. Continue lactulose. Stable 6. Hypothyroidism. continue Synthroid 7. Macrocytic anemia secondary to liver cirrhosis. Status post transfusion. Monitor H&H and transfuse as needed. Of note patient was seen by tire bagger for possible GI bleed. family refusing invasive intervention. Continue with PPI medication for now 8. Coagulopathy secondary to underlying liver cirrhosis. Monitor for signs and symptoms of bleed. Anticoagulation not given at this time due to anemia. DVT prophylaxis: His SCDs Disposition and plan: Plan for repeat paracentesis. will monitor for hypotension. d/c when medically stable Discussed plan of care with Dr. John Problems: Subjective 24 Hr Interval Summary Free Text/Dictation no s/s of distress Exam/Review of Systems Vital Signs Vitals Vital Signs Date Time Temp Pulse Resp B/P Pulse Ox O2 Delivery O2 Flow Rate FiO2 06/02/16 08:34 98.4 77 20 131/54 96 05/29/16 12:15 Nasal Cannula Intake and Output 06/01/16 06/01/16 06/02/16 15:00 23:00 07:00 Intake Total 50 ml 650 ml 600 ml Output Total 300 ml Balance 50 ml 650 ml 300 ml Exam General: in some mild distress. reports abdominal discomfort Eyes: Pupils equal round. Does track Neck: Still mow JVD seen Cardiac: regular rate, s1-s2 Pulmonary: No adventitious lungs GI: Still distended today. remains tender on palpation Extremities: Noted with bilateral lower extremity edema today Neurologic: Alert. to person Results Result Diagram: 06/02/16 1128 06/02/16 0438 Results 24 hrs Laboratory Tests Test 06/01/16 16:41 06/01/16 18:20 06/01/16 20:10 06/02/16 00:35 Bedside Glucose 167 156 Band Neutrophils % 1.0 Eosinophils # 0.1 Eosinophils % 1.0 Hematocrit 26.8 L 26.3 L Hemoglobin 9.2 L 8.9 L Lymphocytes # 2.5 Lymphocytes % 38.0 Mean Corpuscular Hemoglobin 34.6 H Mean Corpuscular Hemoglobin Concent 34.3 Mean Corpuscular Volume 100.8 Mean Platelet Volume 11.1 H Monocytes # 0.3 Monocytes % 5.0 Neutrophils # 3.6 Neutrophils % 55.0 Platelet Count 33 L Platelet Estimate PLT APPEAR DECREASED Red Blood Count 2.66 L Red Cell Distribution Width 22.0 H White Blood Count 6.6 # Test 06/02/16 04:38 06/02/16 07:23 06/02/16 11:28 06/02/16 11:32 Anion Gap 15 Basophils # 0.0 0.0 Basophils % 0.2 0.3 Blood Urea Nitrogen 48 H Calcium Level 8.9 Carbon Dioxide Level 18 L Chloride Level 113 H Creatinine 2.04 H Eosinophils # 0.1 0.1 Eosinophils % 1.7 1.6 Glucose Level 138 Hematocrit 26.2 L 23.7 L Hemoglobin 8.8 L 8.1 L Lymphocytes # 1.7 1.7 Lymphocytes % 28.5 27.2 Mean Corpuscular Hemoglobin 33.8 H 34.5 H Mean Corpuscular Hemoglobin Concent 33.6 34.2 Mean Corpuscular Volume 100.8 100.9 Mean Platelet Volume 12.9 H 11.5 H Monocytes # 0.6 0.6 Monocytes % 9.2 9.0 Neutrophils # 3.6 3.7 Neutrophils % 59.9 61.2 Nucleated Red Blood Cells # 0.0 0.0 Nucleated Red Blood Cells % 0.0 0.0 Platelet Count 34 L 50 #L Potassium Level 4.5 Red Blood Count 2.60 L 2.35 L Red Cell Distribution Width 22.0 H 21.4 H Sodium Level 141 White Blood Count 6.1 6.1 Bedside Glucose 147 136 Medications Medications Current Medications Ondansetron HCl (Zofran Inj) 4 mg Q6H PRN IV NAUSEA AND/OR VOMITING Last administered on 05/31/16 22:01; Admin Dose 4 MG; Start 05/22/16 at 13:30 Acetaminophen/ Hydrocodone Bitart ([place] (5/325)) 1 tab Q6H PRN PO MODERATE PAIN LEVEL 4-6; Start 05/22/16 at 13:30 Magnesium Hydroxide (Milk Of Mag) 30 ml DAILY PRN PO CONSTIPATION; Start at 13:30 Bisacodyl (Dulcolax) 5 mg DAILY PRN PO CONSTIPATION Last administered on 21:11; Admin Dose 5 MG; Start 05/22/16 at 13:30 Hydralazine HCl (Apresoline) 10 mg Q6H PRN IV SBP>160; Start 05/22/16 at 14:00 Lamivudine (Epivir) 150 mg DAILY PO Last administered on 06/02/16 08:45; Admin Dose 150 MG; Start 05/23/16 at 09:00 Lubiprostone (Amitiza) 8 mcg BID PO Last administered on 06/02/16 08:44; Admin Dose 8 MCG; Start 05/22/16 at 21:00 Salmeterol Xinafoate/ Fluticasone (Advair 250/50 Diskus) 1 inh BID INH Last administered on 06/02/16 08:44; Admin Dose 1 INH; Start 05/22/16 at 21:00 Tamsulosin HCl 0.4 mg 0.4 mg HS PO Last administered on 06/01/16 20:32; Admin Dose 0.4 MG; Start 05/22/16 at 21:00 Dextrose/Sodium Chloride (D5-NS) 1,000 ml @ 50 mls/hr Q20H IV Last administered on 06/02/16 07:26; Admin Dose 50 MLS/HR; Start 05/22/16 at 17:00 Miscellaneous Information 1 ea NOTE XX ; Start 05/22/16 at 17:00 Glucose (Glutose) 15 gm Q15M PRN PO DECREASED GLUCOSE; Start 05/22/16 at 17:00 Glucose (Glutose) 22.5 gm Q15M PRN PO DECREASED GLUCOSE; Start 05/22/16 at 17:00 Dextrose (D50w Syringe) 25 ml Q15M PRN IV DECREASED GLUCOSE; Start 05/22/16 at 17:00 Dextrose (D50w Syringe) 50 ml Q15M PRN IV DECREASED GLUCOSE; Start 05/22/16 at 17:00 Glucagon (Glucagen) 1 mg Q15M PRN IM DECREASED GLUCOSE; Start 05/22/16 at 17:00 Glucose (Glutose) 15 gm Q15M PRN BUCCAL DECREASED GLUCOSE; Start 05/22/16 at 17: 00 Pregabalin (Lyrica) 100 mg TID PO Last administered on 06/02/16 08:45; Admin Dose 100 MG; Start 05/24/16 at 13:00 Allopurinol 100 mg 100 mg DAILY PO Last administered on 06/02/16 08:45; Admin Dose 100 MG; Start 05/25/16 at 09:00 Albumin Human (Albumin Human 25%) 50 ml @ 100 mls/hr BID IV Last administered on 06/02/16 08:46; Admin Dose 100 MLS/HR; Start 05/24/16 at 21:30 Lactulose (Enulose) 20 gm Q8 PO Last administered on 06/02/16 05:13; Admin Dose 20 GM; Start 05/25/16 at 22:00 Famotidine (Pepcid) 20 mg DAILY PO Last administered on 06/02/16 08:45; Admin Dose 20 MG; Start 05/27/16 at 21:00 Acetaminophen (Tylenol Supp) 650 mg Q4H PRN [place] PAIN OR TEMP ABOVE 38C; Start at 10:00 Acetaminophen (Tylenol Tab) 650 mg Q4H PRN PO PAIN AND OR ELEVATED TEMP; Start 05/29/16 at 10:00 Furosemide (Lasix) 40 mg DAILY IV Last administered on 06/02/16 08:46; Admin Dose 40 MG; Start 06/01/16 at 12:30 MERISSA DURAN Jun 02, 2016 12:54
[2016-06-02] MEDS ORDERED: LIDOCAINE 1% (MPF) 5 ML VIAL ONE (15:50)
--- NOTE | 2016-06-02 16:47 | RADRPT ---
PROCEDURE: Ultrasound guided paracentesis. CLINICAL INDICATION: Ascites and shortness of breath. COMPARISON: 05/29/2016. TECHNIQUE: The risks, benefits, and alternatives were explained to the patient and/or the patient's family, inc luding but not limited to bleeding, infection, pain, visceral or vascular damage, shock, and . The patient and/or the patient's family understood the risks and the alternatives and wished to pro ceed with the procedure. Informed written consent was obtained. A procedural time out was performed . The patient's name, date of , and procedure to be performed were verified. Utilizing ultrasound guidance, optimal location for entry to the peritoneal cavity was ascertained. The overlying skin was prepped and draped in the usual sterile fashion. Approximately 10 ml of 1% Xylocaine was injected locally for pain control. Using ultrasound guidance, an 8 [place] catheter wa s introduced into the peritoneal cavity in the right lower quadrant without difficulty. FINDINGS: Initial images demonstrate ascites. Approximately 9.4 liters of serous fluid was aspirated and disc arded. The patient tolerated the procedure well without complication. IMPRESSION: 1. Successful ultrasound-guided paracentesis. RPTAT: QQ .Slava Jain MD, Date Time Electronically viewed and signed by .Slava Jain MD, on 06/02/2016 16:47 .R/
[2016-06-02 17:15] VITALS: BP 107/54
--- NOTE | 2016-06-02 18:38 | PN ---
DATE: 06/02/2016 CARDIOLOGY FOLLOWUP SUBJECTIVE: No new cardiac events. Heart rate has remained stable. MEDICATIONS: Reviewed, as per medical reconciliation; personally reviewed. PHYSICAL EXAMINATION VITAL SIGNS: Temperature 98.4, heart rate of 77, blood pressure of 107/54, respiration rate of 20. HEENT: Normocephalic, atraumatic. Pupils are equal. CARDIOVASCULAR: Regular rate and rhythm. PULMONARY: No wheezes. GASTROINTESTINAL: Soft. No rebound. EXTREMITIES: Trivial edema. NEUROLOGIC: Sleepy. LABORATORY: WBC of 6.1, hemoglobin 8.1, platelets of 50. Sodium 141, potassium 4.5, BUN of 48, cre atinine 2.04. ASSESSMENT AND PLAN 1. Bradycardia and paroxysmal atrial fibrillation - has resolved. Appears to be in sinus rhythm. Heart rate controlled. 2. Liver cirrhosis. 3. Hepatic encephalopathy. 4. History of hypertension, currently hypotensive. 5. Renal failure. RECOMMENDATIONS: We will continue with the current cardiac care. Follow with GI recommendations. Dictated By: ENID TAYLOR MD AV/WAN Conf#: [id number] DID#: [id number] CC: ARLETTE MERIDA MD;*EndCC*
[2016-06-02 19:24] VITALS: BP 102/54; PULSE 75; RESP 18
[2016-06-02] MEDS: TAMSULOSIN (SR) 0.4 MG CAP PO SCH (20:20)
[2016-06-03 05:08] LABS: ADD SCAN DIFF NO
[2016-06-03 05:16] LABS: ABNORMAL IP MESSAGE 1; BASOPHILS % 0.3 % (0.0-2.0); EOSINOPHILS # 0.2 10^3/ul (0.0-0.5); EOSINOPHILS % 2.4 % (0.0-7.0); HEMATOCRIT 25.5 % (42.0-52.0); HEMOGLOBIN 8.6 g/dl (14.0-18.0); LYMPHOCYTES # 1.7 10^3/ul (0.8-2.9); LYMPHOCYTES % 26.7 % (15.0-51.0); MEAN CORPUSCULAR HGB CONC 33.7 g/dl (32.0-37.0); MEAN CORPUSCULAR VOLUME 100.8 fl (82.0-101.0); MEAN PLATELET VOLUME 12.2 fl (7.4-10.4); MONOCYTE # 0.4 10^3/ul (0.3-0.9); MONOCYTES % 6.7 % (0.0-11.0); NEUTROPHILS % 63.4 % (39.0-77.0); PLATELET COUNT 49 10^3/UL (140-415); RED BLOOD COUNT 2.53 10^6/ul (4.70-6.10); RED CELL DISTRIBUTION WIDTH 21.7 % (11.5-14.5); WHITE BLOOD COUNT 6.3 10^3/ul (4.8-10.8)
[2016-06-03 05:40] LABS: CREATININE 1.85 mg/dl (0.61-1.24)
[2016-06-03 05:41] LABS: CALCIUM 8.9 mg/dl (8.4-10.2)
[2016-06-03] MEDS: LEVOTHYROXINE 25 MCG TAB PO SCH (05:52)
[2016-06-03] MEDS: LACTULOSE 30ML CUP PO SCH ×3 (05:52→22:00)
[2016-06-03] MEDS: INSULIN ASPART [NOVOLOG] 3 ML PEN SC SCH ×4 (07:30→20:38)
[2016-06-03] MEDS: ALLOPURINOL 100 MG TAB PO SCH (08:48)
[2016-06-03] MEDS: PREGABALIN 100 MG CAP PO SCH ×3 (08:48→20:52)
[2016-06-03] MEDS: LAMIVUDINE 150 MG TAB PO SCH (08:48)
[2016-06-03] MEDS: LUBIPROSTONE 8 MCG CAPSULE PO SCH ×2 (08:48→20:52)
[2016-06-03] MEDS: FUROSEMIDE 40 MG INJ IV SCH (08:48)
[2016-06-03] MEDS: SALMETEROL/FLUTICASONE 250/50 INHA INH SCH ×2 (08:49→20:52)
[2016-06-03] MEDS: FAMOTIDINE 20 MG TAB PO SCH (08:49)
[2016-06-03 08:51] VITALS: BP 103/55; RESP 20
[2016-06-03] MEDS: ALBUMIN HUMAN 25% 50 ML IV SCH ×2 (08:51→20:40)
[2016-06-03] MEDS: DEXTROSE 5%-0.9% NACL 1,000 ML IV SCH (08:52)
[2016-06-03 10:00] VITALS: BP 119/58; PULSE 77; RESP 18
--- NOTE | 2016-06-03 10:23 | CONS ---
Date/Time of Note Date/Time of Note DATE: 06/03/16 TIME: 10:20 Assessment/Plan Assessment/Plan Additional Assessment/Plan 1. 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 GI bleeding with severe anemia s/p PRBC tarnsfusion, GI consulted yesterday 2. History of liver cirrhosis secondary to hepatitis C. 3. History of hypertension. 4. History of diabetes mellitus. 5. History of atrial fibrillation. 6. Hypothyroidism. 7. Acute hepatic encephalopathy secondary to high ammonia. 8. Coagulopathy secondary to liver cirrhosis. PLAN: Hb dropped to 5.7- s/p PRBC transfusion during this admission, GI Consulted, Cr stable s/p paracentesis 10 L removed on 05/29/16- another paracentesis on 06/02/16- 9.4 L removed BP stable - ok to resume diuretics- on lasix 40mg IV daily, will resume his spironolactone at 50mg po daily add bicitra due to metabolic acidosis s/p family meeting, refused hospice care due to comorbidites, pt is not a candidate for renal replacement therapy will follow up Consultation Date/Type/Reason Admit Date/Time May 22, 2016 at 11:30 Initial Consult Date May Type of Consultation: NEPHROLOGY Referring Provider: ARLETTE MERIDA MD 24 HR Interval Summary Free Text/Dictation s/p paracentesis 9.4 L removed, Pt still intermittently confused, no SOB, DNR Status Exam/Review of Systems Vital Signs Vitals Vital Signs Date Time Temp Pulse Resp B/P Pulse Ox O2 Delivery O2 Flow Rate FiO2 06/03/16 08:51 98.6 77 20 103/55 94 06/02/16 19:24 Nasal Cannula 2.0 Intake and Output 06/02/16 06/02/16 06/03/16 15:00 23:00 07:00 Intake Total 50 ml 575 ml 900 ml Output Total 02423 ml 450 ml Balance 50 ml -9625 ml 450 ml Exam GENERAL: alwake but confused HEENT: Pupils equal, round, reactive to light and accommodation. No jaundice. NECK: Supple. HEART: S1, S2. Regular rhythm, no murmur. LUNGS: Decreased breath sounds at the right middle lobe, right lower lobe. No wheezing, no crackles. ABDOMEN: Soft, ascites is present, but nontender EXTREMITIES: 1 to 2+ pitting edema. Results Result Diagram: 06/03/16 0434 06/03/16 0434 Results 24 hrs Laboratory Tests Test 06/02/16 11:28 06/02/16 11:32 06/02/16 17:24 06/02/16 19:42 Basophils # 0.0 Basophils % 0.3 Eosinophils # 0.1 Eosinophils % 1.6 Hematocrit 23.7 L Hemoglobin 8.1 L Lymphocytes # 1.7 Lymphocytes % 27.2 Mean Corpuscular Hemoglobin 34.5 H Mean Corpuscular Hemoglobin Concent 34.2 Mean Corpuscular Volume 100.9 Mean Platelet Volume 11.5 H Monocytes # 0.6 Monocytes % 9.0 Neutrophils # 3.7 Neutrophils % 61.2 Nucleated Red Blood Cells # 0.0 Nucleated Red Blood Cells % 0.0 Platelet Count 50 #L Red Blood Count 2.35 L Red Cell Distribution Width 21.4 H White Blood Count 6.1 Bedside Glucose 136 130 146 Test 06/03/16 04:34 06/03/16 07:49 Anion Gap 16 Basophils # 0.0 Basophils % 0.3 Blood Urea Nitrogen 49 H Calcium Level 8.9 Carbon Dioxide Level 17 L Chloride Level 114 H Creatinine 1.85 H Eosinophils # 0.2 Eosinophils % 2.4 Glucose Level 103 Hematocrit 25.5 L Hemoglobin 8.6 L Lymphocytes # 1.7 Lymphocytes % 26.7 Mean Corpuscular Hemoglobin 34.0 H Mean Corpuscular Hemoglobin Concent 33.7 Mean Corpuscular Volume 100.8 Mean Platelet Volume 12.2 H Monocytes # 0.4 Monocytes % 6.7 Neutrophils # 4.0 Neutrophils % 63.4 Nucleated Red Blood Cells # 0.0 Nucleated Red Blood Cells % 0.0 Platelet Count 49 L Potassium Level 4.0 Red Blood Count 2.53 L Red Cell Distribution Width 21.7 H Sodium Level 143 White Blood Count 6.3 Bedside Glucose 108 Medications Medications Current Medications Ondansetron HCl (Zofran Inj) 4 mg Q6H PRN IV NAUSEA AND/OR VOMITING Last administered on 05/31/16t 22:01; Admin Dose 4 MG; Start 05/22/16 at 13:30 Acetaminophen/ Hydrocodone Bitart ([place] (5/325)) 1 tab Q6H PRN PO MODERATE PAIN LEVEL 4-6; Start 05/22/16 at 13:30 Magnesium Hydroxide (Milk Of Mag) 30 ml DAILY PRN PO CONSTIPATION; Start at 13:30 Bisacodyl (Dulcolax) 5 mg DAILY PRN PO CONSTIPATION Last administered on 21:11; Admin Dose 5 MG; Start 05/22/16 at 13:30 Hydralazine HCl (Apresoline) 10 mg Q6H PRN IV SBP>160; Start 05/22/16 at 14:00 Lamivudine (Epivir) 150 mg DAILY PO Last administered on 06/03/16 08:48; Admin Dose 150 MG; Start 05/23/16 at 09:00 Lubiprostone (Amitiza) 8 mcg BID PO Last administered on 06/03/16 08:48; Admin Dose 8 MCG; Start 05/22/16 at 21:00 Salmeterol Xinafoate/ Fluticasone (Advair 250/50 Diskus) 1 inh BID INH Last administered on 06/03/16 08:49; Admin Dose 1 INH; Start 05/22/16 at 21:00 Tamsulosin HCl 0.4 mg 0.4 mg HS PO Last administered on 06/02/16 20:20; Admin Dose 0.4 MG; Start 05/22/16 at 21:00 Dextrose/Sodium Chloride (D5-NS) 1,000 ml @ 50 mls/hr Q20H IV Last administered on 06/03/16 08:52; Admin Dose 50 MLS/HR; Start 05/22/16 at 17:00 Miscellaneous Information 1 ea NOTE XX ; Start 05/22/16 at 17:00 Glucose (Glutose) 15 gm Q15M PRN PO DECREASED GLUCOSE; Start 05/22/16 at 17:00 Glucose (Glutose) 22.5 gm Q15M PRN PO DECREASED GLUCOSE; Start 05/22/16 at 17:00 Dextrose (D50w Syringe) 25 ml Q15M PRN IV DECREASED GLUCOSE; Start 05/22/16 at 17:00 Dextrose (D50w Syringe) 50 ml Q15M PRN IV DECREASED GLUCOSE; Start 05/22/16 at 17:00 Glucagon (Glucagen) 1 mg Q15M PRN IM DECREASED GLUCOSE; Start 05/22/16 at 17:00 Glucose (Glutose) 15 gm Q15M PRN BUCCAL DECREASED GLUCOSE; Start 05/22/16 at 17: 00 Pregabalin (Lyrica) 100 mg TID PO Last administered on 06/03/16 08:48; Admin Dose 100 MG; Start 05/24/16 at 13:00 Allopurinol 100 mg 100 mg DAILY PO Last administered on 06/03/16 08:48; Admin Dose 100 MG; Start 05/25/16 at 09:00 Albumin Human (Albumin Human 25%) 50 ml @ 100 mls/hr BID IV Last administered on 06/03/16 08:51; Admin Dose 100 MLS/HR; Start 05/24/16 at 21:30 Lactulose (Enulose) 20 gm Q8 PO Last administered on 06/03/16 05:52; Admin Dose 20 GM; Start 05/25/16 at 22:00 Famotidine (Pepcid) 20 mg DAILY PO Last administered on 06/03/16 08:49; Admin Dose 20 MG; Start 05/27/16 at 21:00 Acetaminophen (Tylenol Supp) 650 mg Q4H PRN [place] PAIN OR TEMP ABOVE 38C; Start at 10:00 Acetaminophen (Tylenol Tab) 650 mg Q4H PRN PO PAIN AND OR ELEVATED TEMP; Start 05/29/16 at 10:00 Furosemide (Lasix) 40 mg DAILY IV Last administered on 06/03/16 08:48; Admin Dose 40 MG; Start 06/01/16 at 12:30 SANIA GRAHAM MD Jun 03, 2016 10:23
[2016-06-03] MEDS ORDERED: SPIRONOLACTONE 50 MG TAB PO ONE (10:30)
[2016-06-03] MEDS ORDERED: CITRIC ACID/NA CITRATE 30 ML CUP PO ONE (10:30)
[2016-06-03] MEDS: CITRIC ACID/NA CITRATE 30 ML CUP PO SCH ×2 (13:00→20:48)
--- NOTE | 2016-06-03 13:47 | PN ---
Date/Time of Note Date/Time of Note DATE: 06/03/16 TIME: 13:40 Assessment/Plan VTE Prophylaxis VTE Prophylaxis Intervention: SCD's Lines/Catheters IV [facility]ter Type (from [facility] Peripheral IV Urinary Cath still in place: Yes Assessment/Plan Chief Complaint/Hosp Course Assessment and plan 1. Acute encephalopathy secondary to hepatic insufficiency. Remains on lactulose. CT scan of the brain was negative for any acute intracranial findings. Continue fall precautions. Monitor neuro status 2. Paroxysmal atrial fibrillation. No plan for anticoagulation due to underlying encephalopathy and risk for falls as well as coagulopathy from liver cirrhosis. Continue with cardiology recommendations. Continue to monitor 3. History of CKD. Avoid nephrotoxic medications as possible. . Is slightly improving. Diuretics per nephrology 4. Abdominal ascites. Patient is status post paracentesis on May 23, 2016 with roughly 10 L of fluid removed. Patient again with abdominal distention. Did have repeat paracentesis with roughly 10.7 L of serous fluid removed (May 29, 2016). Still again with distended abdomen. Again s/p paracentesis 06/02/16 with 9.4 liters removed 5. Hyperammonemia. Continue lactulose. Stable 6. Hypothyroidism. cont Synthroid 7. Macrocytic anemia secondary to liver cirrhosis. Status post transfusion. Monitor H&H and transfuse as needed. Of note patient was seen by coiler operator for possible GI bleed.family refusing invasive intervention. Continue with PPI medication for now 8. Coagulopathy secondary to underlying liver cirrhosis. Monitor for signs and symptoms of bleed. Anticoagulation not given at this time due to anemia. DVT prophylaxis: His SCDs Disposition and plan: Patient overall with poor prognosis. discussed with family. plan for hospice. will follow up Discussed plan of care with Dr. John Problems: Subjective 24 Hr Interval Summary Free Text/Dictation no s/s of distress. no specific complaints at this time Exam/Review of Systems Vital Signs Vitals Vital Signs Date Time Temp Pulse Resp B/P Pulse Ox O2 Delivery O2 Flow Rate FiO2 06/03/16 10:00 97.3 77 18 119/58 93 Room Air 06/02/16 19:24 2.0 Intake and Output 06/02/16 06/02/16 06/03/16 15:00 23:00 07:00 Intake Total 50 ml 575 ml 900 ml Output Total 09421 ml 450 ml Balance 50 ml -9625 ml 450 ml Exam General: no s/s of distress at this time Eyes: Pupils equal round. Neck: no JVD Cardiac: regular rate, s1-s2 Pulmonary: minimally diminished at lung bases GI: still distended s/p paracentesis Extremities: minimal edema BLE Neurologic: Alert. to person Results Result Diagram: 06/03/16 0434 06/03/16 0434 Results 24 hrs Laboratory Tests Test 06/02/16 17:24 06/02/16 19:42 06/03/16 04:34 06/03/16 07:49 Bedside Glucose 130 146 108 Anion Gap 16 Basophils # 0.0 Basophils % 0.3 Blood Urea Nitrogen 49 H Calcium Level 8.9 Carbon Dioxide Level 17 L Chloride Level 114 H Creatinine 1.85 H Eosinophils # 0.2 Eosinophils % 2.4 Glucose Level 103 Hematocrit 25.5 L Hemoglobin 8.6 L Lymphocytes # 1.7 Lymphocytes % 26.7 Mean Corpuscular Hemoglobin 34.0 H Mean Corpuscular Hemoglobin Concent 33.7 Mean Corpuscular Volume 100.8 Mean Platelet Volume 12.2 H Monocytes # 0.4 Monocytes % 6.7 Neutrophils # 4.0 Neutrophils % 63.4 Nucleated Red Blood Cells # 0.0 Nucleated Red Blood Cells % 0.0 Platelet Count 49 L Potassium Level 4.0 Red Blood Count 2.53 L Red Cell Distribution Width 21.7 H Sodium Level 143 White Blood Count 6.3 Test 06/03/16 12:09 Bedside Glucose 114 Medications Medications Current Medications Ondansetron HCl (Zofran Inj) 4 mg Q6H PRN IV NAUSEA AND/OR VOMITING Last administered on 05/31/16 22:01; Admin Dose 4 MG; Start 05/22/16 at 13:30 Acetaminophen/ Hydrocodone Bitart ([place] (5/325)) 1 tab Q6H PRN PO MODERATE PAIN LEVEL 4-6; Start 05/22/16 at 13:30 Magnesium Hydroxide (Milk Of Mag) 30 ml DAILY PRN PO CONSTIPATION; Start at 13:30 Bisacodyl (Dulcolax) 5 mg DAILY PRN PO CONSTIPATION Last administered on 21:11; Admin Dose 5 MG; Start 05/22/16 at 13:30 Hydralazine HCl (Apresoline) 10 mg Q6H PRN IV SBP>160; Start 05/22/16 at 14:00 Lamivudine (Epivir) 150 mg DAILY PO Last administered on 06/03/16 08:48; Admin Dose 150 MG; Start 05/23/16 at 09:00 Lubiprostone (Amitiza) 8 mcg BID PO Last administered on 06/03/16 08:48; Admin Dose 8 MCG; Start 05/22/16 at 21:00 Salmeterol Xinafoate/ Fluticasone (Advair 250/50 Diskus) 1 inh BID INH Last administered on 06/03/16 08:49; Admin Dose 1 INH; Start 05/22/16 at 21:00 Tamsulosin HCl 0.4 mg 0.4 mg HS PO Last administered on 06/02/16 20:20; Admin Dose 0.4 MG; Start 05/22/16 at 21:00 Dextrose/Sodium Chloride (D5-NS) 1,000 ml @ 40 mls/hr Q24H IV Last administered on 06/03/16 08:52; Admin Dose 50 MLS/HR; Start 05/22/16 at 17:00 Miscellaneous Information 1 ea NOTE XX ; Start 05/22/16 at 17:00 Glucose (Glutose) 15 gm Q15M PRN PO DECREASED GLUCOSE; Start 05/22/16 at 17:00 Glucose (Glutose) 22.5 gm Q15M PRN PO DECREASED GLUCOSE; Start 05/22/16 at 17:00 Dextrose (D50w Syringe) 25 ml Q15M PRN IV DECREASED GLUCOSE; Start 05/22/16 at 17:00 Dextrose (D50w Syringe) 50 ml Q15M PRN IV DECREASED GLUCOSE; Start 05/22/16 at 17:00 Glucagon (Glucagen) 1 mg Q15M PRN IM DECREASED GLUCOSE; Start 05/22/16 at 17:00 Glucose (Glutose) 15 gm Q15M PRN BUCCAL DECREASED GLUCOSE; Start 05/22/16 at 17: 00 Pregabalin (Lyrica) 100 mg TID PO Last administered on 06/03/16 08:48; Admin Dose 100 MG; Start 05/24/16 at 13:00 Allopurinol 100 mg 100 mg DAILY PO Last administered on 06/03/16 08:48; Admin Dose 100 MG; Start 05/25/16 at 09:00 Albumin Human (Albumin Human 25%) 50 ml @ 100 mls/hr BID IV Last administered on 06/03/16 08:51; Admin Dose 100 MLS/HR; Start 05/24/16 at 21:30 Lactulose (Enulose) 20 gm Q8 PO Last administered on 06/03/16 05:52; Admin Dose 20 GM; Start 05/25/16 at 22:00 Famotidine (Pepcid) 20 mg DAILY PO Last administered on 06/03/16 08:49; Admin Dose 20 MG; Start 05/27/16 at 21:00 Acetaminophen (Tylenol Supp) 650 mg Q4H PRN [place] PAIN OR TEMP ABOVE 38C; Start at 10:00 Acetaminophen (Tylenol Tab) 650 mg Q4H PRN PO PAIN AND OR ELEVATED TEMP; Start 05/29/16 at 10:00 Furosemide (Lasix) 40 mg DAILY IV Last administered on 06/03/16 08:48; Admin Dose 40 MG; Start 06/01/16 at 12:30 Spironolactone (Aldactone) 50 mg DAILY PO ; Start 06/04/16 at 09:00 Citric Acid/ Sodium Citrate (Bicitra) 30 ml TID PO ; Start 06/03/16 at 13:00 MERISSA DURAN Jun 03, 2016 13:47
--- NOTE | 2016-06-03 15:57 | QN ---
Documentation Comment Patient's family informs me they have elected to place the patient on hospice care and wished no additional therapeutic intervention. CAROLINE MARIN MD Jun 03, 2016 15:57
[2016-06-03 20:26] VITALS: BP 81/42; RESP 15
[2016-06-03] MEDS: TAMSULOSIN (SR) 0.4 MG CAP PO SCH (20:52)
[2016-06-03 22:09] VITALS: BP 87/46
[2016-06-03 23:37] VITALS: BP 97/46; PULSE 69
[2016-06-04 05:23] LABS: ADD SCAN DIFF NO
[2016-06-04 05:30] LABS: ABNORMAL IP MESSAGE 1; BASOPHILS % 0.4 % (0.0-2.0); EOSINOPHILS # 0.2 10^3/ul (0.0-0.5); EOSINOPHILS % 2.3 % (0.0-7.0); HEMATOCRIT 25.8 % (42.0-52.0); HEMOGLOBIN 8.6 g/dl (14.0-18.0); LYMPHOCYTES # 1.9 10^3/ul (0.8-2.9); LYMPHOCYTES % 26.5 % (15.0-51.0); MEAN CORPUSCULAR HEMOGLOBIN 34.4 pg (29.0-33.0); MEAN CORPUSCULAR HGB CONC 33.3 g/dl (32.0-37.0); MEAN CORPUSCULAR VOLUME 103.2 fl (82.0-101.0); MEAN PLATELET VOLUME 11.2 fl (7.4-10.4); MONOCYTE # 0.5 10^3/ul (0.3-0.9); MONOCYTES % 7.4 % (0.0-11.0); NEUTROPHIL # 4.5 10^3/ul (1.6-7.5); PLATELET COUNT 38 10^3/UL (140-415); WHITE BLOOD COUNT 7.1 10^3/ul (4.8-10.8)
[2016-06-04] MEDS: DEXTROSE 5%-0.9% NACL 1,000 ML IV SCH (05:59)
[2016-06-04] MEDS: LACTULOSE 30ML CUP PO SCH ×2 (06:00→13:20)
[2016-06-04] MEDS: LEVOTHYROXINE 25 MCG TAB PO SCH (06:04)
[2016-06-04 06:12] LABS: POTASSIUM 4.1 mmol/L (3.5-5.1)
[2016-06-04 06:15] LABS: CREATININE 1.85 mg/dl (0.61-1.24)
[2016-06-04 08:30] VITALS: BP 111/75; RESP 17
--- NOTE | 2016-06-04 08:57 | CONS ---
Date/Time of Note Date/Time of Note DATE: 06/04/16 TIME: 08:55 Assessment/Plan Assessment/Plan Additional Assessment/Plan 1. 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 GI bleeding with severe anemia s/p PRBC tarnsfusion, GI consulted yesterday 2. History of liver cirrhosis secondary to hepatitis C. 3. History of hypertension. 4. History of diabetes mellitus. 5. History of atrial fibrillation. 6. Hypothyroidism. 7. Acute hepatic encephalopathy secondary to high ammonia. 8. Coagulopathy secondary to liver cirrhosis. PLAN: Hb dropped to 5.7- s/p PRBC transfusion during this admission, GI Consulted s/p paracentesis 10 L removed on 05/29/16- another paracentesis on 06/02/16- 9.4 L removed BP stable - ok to resume diuretics- on lasix 40mg IV daily, resumed his spironolactone at 50mg po daily added bicitra due to metabolic acidosis family agreed for hospice care evaluatoin due to comorbidites, pt is not a candidate for renal replacement therapy will follow up Consultation Date/Type/Reason Admit Date/Time May 22, 2016 at 11:30 Initial Consult Date May Type of Consultation: NEPHROLOGY Referring Provider: ARLETTE MERIDA MD 24 HR Interval Summary Free Text/Dictation s/p paracentesis, family agreed for hospice, BP still low Exam/Review of Systems Vital Signs Vitals Vital Signs Date Time Temp Pulse Resp B/P Pulse Ox O2 Delivery O2 Flow Rate FiO2 06/04/16 08:30 99.5 73 17 111/75 100 06/03/16 10:00 Room Air 06/02/16 19:24 2.0 Intake and Output 06/03/16 06/03/16 06/04/16 15:00 23:00 07:00 Intake Total 410 ml 0 ml Output Total 400 ml 350 ml Balance 10 ml -350 ml Exam GENERAL: alwake but confused HEENT: Pupils equal, round, reactive to light and accommodation. No jaundice. NECK: Supple. HEART: S1, S2. Regular rhythm, no murmur. LUNGS: Decreased breath sounds at the right middle lobe, right lower lobe. No wheezing, no crackles. ABDOMEN: Soft, ascites is present, but nontender EXTREMITIES: 1 to 2+ pitting edema. Results Result Diagram: 06/04/16 0420 06/04/16 0420 Results 24 hrs Laboratory Tests Test 06/03/16 12:09 06/03/16 20:36 06/04/16 04:20 06/04/16 08:14 Bedside Glucose 114 161 145 Anion Gap 17 H Basophils # 0.0 Basophils % 0.4 Blood Urea Nitrogen 50 H Calcium Level 9.0 Carbon Dioxide Level 17 L Chloride Level 115 H Creatinine 1.85 H Eosinophils # 0.2 Eosinophils % 2.3 Glucose Level 133 Hematocrit 25.8 L Hemoglobin 8.6 L Lymphocytes # 1.9 Lymphocytes % 26.5 Mean Corpuscular Hemoglobin 34.4 H Mean Corpuscular Hemoglobin Concent 33.3 Mean Corpuscular Volume 103.2 H Mean Platelet Volume 11.2 H Monocytes # 0.5 Monocytes % 7.4 Neutrophils # 4.5 Neutrophils % 63.0 Nucleated Red Blood Cells # 0.0 Nucleated Red Blood Cells % 0.0 Platelet Count 38 #L Potassium Level 4.1 Red Blood Count 2.50 L Red Cell Distribution Width 22.0 H Sodium Level 145 H White Blood Count 7.1 Medications Medications Current Medications Ondansetron HCl (Zofran Inj) 4 mg Q6H PRN IV NAUSEA AND/OR VOMITING Last administered on 05/31/16 22:01; Admin Dose 4 MG; Start 05/22/16 at 13:30 Acetaminophen/ Hydrocodone Bitart ([place] (5/325)) 1 tab Q6H PRN PO MODERATE PAIN LEVEL 4-6; Start 05/22/16 at 13:30 Magnesium Hydroxide (Milk Of Mag) 30 ml DAILY PRN PO CONSTIPATION; Start at 13:30 Bisacodyl (Dulcolax) 5 mg DAILY PRN PO CONSTIPATION Last administered on 21:11; Admin Dose 5 MG; Start 05/22/16 at 13:30 Hydralazine HCl (Apresoline) 10 mg Q6H PRN IV SBP>160; Start 05/22/16 at 14:00 Lamivudine (Epivir) 150 mg DAILY PO Last administered on 06/03/16 08:48; Admin Dose 150 MG; Start 05/23/16 at 09:00 Lubiprostone (Amitiza) 8 mcg BID PO Last administered on 06/03/16 08:48; Admin Dose 8 MCG; Start 05/22/16 at 21:00 Salmeterol Xinafoate/ Fluticasone (Advair 250/50 Diskus) 1 inh BID INH Last administered on 06/03/16 08:49; Admin Dose 1 INH; Start 05/22/16 at 21:00 Tamsulosin HCl 0.4 mg 0.4 mg HS PO Last administered on 06/02/16 20:20; Admin Dose 0.4 MG; Start 05/22/16 at 21:00 Dextrose/Sodium Chloride (D5-NS) 1,000 ml @ 40 mls/hr Q24H IV Last administered on 06/04/16 05:59; Admin Dose 40 MLS/HR; Start 05/22/16 at 17:00 Miscellaneous Information 1 ea NOTE XX ; Start 05/22/16 at 17:00 Glucose (Glutose) 15 gm Q15M PRN PO DECREASED GLUCOSE; Start 05/22/16 at 17:00 Glucose (Glutose) 22.5 gm Q15M PRN PO DECREASED GLUCOSE; Start 05/22/16 at 17:00 Dextrose (D50w Syringe) 25 ml Q15M PRN IV DECREASED GLUCOSE; Start 05/22/16 at 17:00 Dextrose (D50w Syringe) 50 ml Q15M PRN IV DECREASED GLUCOSE; Start 05/22/16 at 17:00 Glucagon (Glucagen) 1 mg Q15M PRN IM DECREASED GLUCOSE; Start 05/22/16 at 17:00 Glucose (Glutose) 15 gm Q15M PRN BUCCAL DECREASED GLUCOSE; Start 05/22/16 at 17: 00 Pregabalin (Lyrica) 100 mg TID PO Last administered on 06/03/16 08:48; Admin Dose 100 MG; Start 05/24/16 at 13:00 Allopurinol 100 mg 100 mg DAILY PO Last administered on 06/03/16 08:48; Admin Dose 100 MG; Start 05/25/16 at 09:00 Albumin Human (Albumin Human 25%) 50 ml @ 100 mls/hr BID IV Last administered on 06/03/16 20:40; Admin Dose 100 MLS/HR; Start 05/24/16 at 21:30 Lactulose (Enulose) 20 gm Q8 PO Last administered on 06/03/16 05:52; Admin Dose 20 GM; Start 05/25/16 at 22:00 Famotidine (Pepcid) 20 mg DAILY PO Last administered on 06/03/16 08:49; Admin Dose 20 MG; Start 05/27/16 at 21:00 Acetaminophen (Tylenol Supp) 650 mg Q4H PRN [place] PAIN OR TEMP ABOVE 38C; Start at 10:00 Acetaminophen (Tylenol Tab) 650 mg Q4H PRN PO PAIN AND OR ELEVATED TEMP; Start 05/29/16 at 10:00 Furosemide (Lasix) 40 mg DAILY IV Last administered on 06/03/16 08:48; Admin Dose 40 MG; Start 06/01/16 at 12:30 Spironolactone (Aldactone) 50 mg DAILY PO ; Start 06/04/16 at 09:00 Citric Acid/ Sodium Citrate (Bicitra) 30 ml TID PO ; Start 06/03/16 at 13:00 SANIA GRAHAM MD Jun 04, 2016 08:57
[2016-06-04] MEDS: FAMOTIDINE 20 MG TAB PO SCH (09:00)
[2016-06-04] MEDS: LAMIVUDINE 150 MG TAB PO SCH (09:00)
[2016-06-04] MEDS: SALMETEROL/FLUTICASONE 250/50 INHA INH SCH ×2 (09:00→20:26)
[2016-06-04] MEDS: CITRIC ACID/NA CITRATE 30 ML CUP PO SCH ×3 (09:00→20:26)
[2016-06-04] MEDS: ALLOPURINOL 100 MG TAB PO SCH (09:00)
[2016-06-04] MEDS: PREGABALIN 100 MG CAP PO SCH ×3 (09:00→20:27)
[2016-06-04] MEDS: LUBIPROSTONE 8 MCG CAPSULE PO SCH ×2 (09:00→20:26)
[2016-06-04] MEDS: SPIRONOLACTONE 50 MG TAB PO SCH (09:00)
[2016-06-04] MEDS: INSULIN ASPART [NOVOLOG] 3 ML PEN SC SCH ×4 (09:06→20:34)
[2016-06-04] MEDS: ALBUMIN HUMAN 25% 50 ML IV SCH ×2 (09:09→20:26)
[2016-06-04] MEDS: FUROSEMIDE 40 MG INJ IV SCH (09:10)
[2016-06-04 14:05] LABS: AADO2 Arterial 41.8 mmHg (7.0-24.0); Allen Test ACCEPTAB; Arterial Base Excess -7.2 mmol/L (-3.0-3); Arterial COHb 0.9 % (0.0-3.0); Arterial Fraction of Oxyhgb 94.8 % (93.0-99.0); Arterial HCO3 15.5 mmol/L (22.0-26.0); Arterial MetHb 0.3 % (0.0-1.5); Arterial Total Hemglobin 9.2 g/dl (12.0-18.0); MODE ROOM AIR
--- NOTE | 2016-06-04 15:18 | PN ---
Date/Time of Note Date/Time of Note DATE: 06/04/16 TIME: 15:15 Assessment/Plan VTE Prophylaxis VTE Prophylaxis Intervention: SCD's Lines/Catheters [facility] Peripheral IV Urinary Cath still in place: Yes Assessment/Plan Chief Complaint/Hosp Course Assessment and plan 1. Acute encephalopathy secondary to hepatic insufficiency. . CT scan of the brain was negative for any acute intracranial findings. Continue fall precautions. Monitor neuro status. More somnolent today. Noted with high ammonia. Plan for lactulose retention enema 2. Paroxysmal atrial fibrillation. No plan for anticoagulation due to underlying encephalopathy and risk for falls as well as coagulopathy from liver cirrhosis. Continue with cardiology recommendations. Continue to monitor 3. History of CKD. Avoid nephrotoxic medications as possible. .. Diuretics per nephrology 4. Abdominal ascites. Patient is status post paracentesis on May 23, 2016 with roughly 10 L of fluid removed. Patient again with abdominal distention. Did have repeat paracentesis with roughly 10.7 L of serous fluid removed (May 29, 2016). Still again with distended abdomen. Again s/p paracentesis 06/02/16 with 9.4 liters removed . We'll monitor 5. Hyperammonemia. Worse today. Unable to take oral lactulose. Plan for lactulose retention enema 6. Hypothyroidism. cont Synthroid 7. Macrocytic anemia secondary to liver cirrhosis. Status post transfusion. Monitor H&H and transfuse as needed. Of note patient was seen by measurement and verification engineer for possible GI bleed.family refusing invasive intervention. Continue with PPI medication for now 8. Coagulopathy secondary to underlying liver cirrhosis. Monitor for signs and symptoms of bleed. Anticoagulation not given at this time due to anemia. DVT prophylaxis: His SCDs Disposition and plan: Patient not accepted to hospice at this time. Follow-up with case management for possible LTAC. Lactulose retention enema for high ammonia. Follow-up Discussed plan of care with Dr. John Problems: Subjective 24 Hr Interval Summary Free Text/Dictation lethargic. hard to arouse Exam/Review of Systems Vital Signs Vitals Vital Signs Date Time Temp Pulse Resp B/P Pulse Ox O2 Delivery O2 Flow Rate FiO2 06/04/16 08:30 99.5 73 17 111/75 100 06/03/16 10:00 Room Air 06/02/16 19:24 2.0 Intake and Output 06/03/16 06/03/16 06/04/16 14:59 22:59 06:59 Intake Total 410 ml 0 ml Output Total 400 ml 350 ml Balance 10 ml -350 ml Exam General: lethargic, somnolent Neck: no JVD Cardiac: remains regular rate, s1-s2 Pulmonary: minimally diminished at lung bases still. slightly course upper airways GI: less distended Extremities: minimal edema BLE Neurologic: somnolent, lethargic Results Result Diagram: 06/04/16 0420 06/04/16 0420 Results 24 hrs Laboratory Tests Test 06/03/16 20:36 06/04/16 04:20 06/04/16 08:14 06/04/16 12:17 Bedside Glucose 161 145 130 Anion Gap 17 H Basophils # 0.0 Basophils % 0.4 Blood Urea Nitrogen 50 H Calcium Level 9.0 Carbon Dioxide Level 17 L Chloride Level 115 H Creatinine 1.85 H Eosinophils # 0.2 Eosinophils % 2.3 Glucose Level 133 Hematocrit 25.8 L Hemoglobin 8.6 L Lymphocytes # 1.9 Lymphocytes % 26.5 Mean Corpuscular Hemoglobin 34.4 H Mean Corpuscular Hemoglobin Concent 33.3 Mean Corpuscular Volume 103.2 H Mean Platelet Volume 11.2 H Monocytes # 0.5 Monocytes % 7.4 Neutrophils # 4.5 Neutrophils % 63.0 Nucleated Red Blood Cells # 0.0 Nucleated Red Blood Cells % 0.0 Platelet Count 38 #L Potassium Level 4.1 Red Blood Count 2.50 L Red Cell Distribution Width 22.0 H Sodium Level 145 H White Blood Count 7.1 Test 06/04/16 13:00 06/04/16 13:16 Arterial Blood HCO3 15.5 L Arterial Blood Base Excess -7.2 L Arterial Blood Oxygen Saturation 96.0 Dougie Test ACCEPTAB Arterial Blood Gas Puncture Site Left Radial Arterial Blood Carboxyhemoglobin 0.9 Arterial Blood Date Drawn 06/04/2016 2:00:46 PM Arterial Blood Methemoglobin 0.3 Arterial Blood pCO2 (Temp correct) 22.6 L Arterial Blood pH (Temp corrected) 7.453 H Arterial Blood pO2 (Temp corrected) 80.9 Blood Gas A-a O2 Differential 41.8 H Blood Gas Modality ROOM AIR Blood Gas Notified Time 06/04/2016 2:05:16 PM Blood Gas Notified Whom MDA Blood Gas Specimen Source Blood arterial Blood Gas Temperature 37.0 FiO2 21.0 Oxyhemoglobin Percent 94.8 Total Hemoglobin 9.2 L Ammonia 119 #H Medications Medications Current Medications Ondansetron HCl (Zofran Inj) 4 mg Q6H PRN IV NAUSEA AND/OR VOMITING Last administered on 05/31/16 22:01; Admin Dose 4 MG; Start 05/22/16 at 13:30 Acetaminophen/ Hydrocodone Bitart ([place] (5/325)) 1 tab Q6H PRN PO MODERATE PAIN LEVEL 4-6; Start 05/22/16 at 13:30 Magnesium Hydroxide (Milk Of Mag) 30 ml DAILY PRN PO CONSTIPATION; Start at 13:30 Bisacodyl (Dulcolax) 5 mg DAILY PRN PO CONSTIPATION Last administered on 21:11; Admin Dose 5 MG; Start 05/22/16 at 13:30 Hydralazine HCl (Apresoline) 10 mg Q6H PRN IV SBP>160; Start 05/22/16 at 14:00 Lamivudine (Epivir) 150 mg DAILY PO Last administered on 06/03/16 08:48; Admin Dose 150 MG; Start 05/23/16 at 09:00 Lubiprostone (Amitiza) 8 mcg BID PO Last administered on 06/03/16 08:48; Admin Dose 8 MCG; Start 05/22/16 at 21:00 Salmeterol Xinafoate/ Fluticasone (Advair 250/50 Diskus) 1 inh BID INH Last administered on 06/03/16 08:49; Admin Dose 1 INH; Start 05/22/16 at 21:00 Tamsulosin HCl 0.4 mg 0.4 mg HS PO Last administered on 06/02/16 20:20; Admin Dose 0.4 MG; Start 05/22/16 at 21:00 Dextrose/Sodium Chloride (D5-NS) 1,000 ml @ 40 mls/hr Q24H IV Last administered on 06/04/16 05:59; Admin Dose 40 MLS/HR; Start 05/22/16 at 17:00 Miscellaneous Information 1 ea NOTE XX ; Start 05/22/16 at 17:00 Glucose (Glutose) 15 gm Q15M PRN PO DECREASED GLUCOSE; Start 05/22/16 at 17:00 Glucose (Glutose) 22.5 gm Q15M PRN PO DECREASED GLUCOSE; Start 05/22/16 at 17:00 Dextrose (D50w Syringe) 25 ml Q15M PRN IV DECREASED GLUCOSE; Start 05/22/16 at 17:00 Dextrose (D50w Syringe) 50 ml Q15M PRN IV DECREASED GLUCOSE; Start 05/22/16 at 17:00 Glucagon (Glucagen) 1 mg Q15M PRN IM DECREASED GLUCOSE; Start 05/22/16 at 17:00 Glucose (Glutose) 15 gm Q15M PRN BUCCAL DECREASED GLUCOSE; Start 05/22/16 at 17: 00 Pregabalin (Lyrica) 100 mg TID PO Last administered on 06/03/16 08:48; Admin Dose 100 MG; Start 05/24/16 at 13:00 Allopurinol 100 mg 100 mg DAILY PO Last administered on 06/03/16 08:48; Admin Dose 100 MG; Start 05/25/16 at 09:00 Albumin Human (Albumin Human 25%) 50 ml @ 100 mls/hr BID IV Last administered on 06/04/16 09:09; Admin Dose 100 MLS/HR; Start 05/24/16 at 21:30 Lactulose (Enulose) 20 gm Q8 PO Last administered on 06/03/16 05:52; Admin Dose 20 GM; Start 05/25/16 at 22:00 Famotidine (Pepcid) 20 mg DAILY PO Last administered on 06/03/16 08:49; Admin Dose 20 MG; Start 05/27/16 at 21:00 Acetaminophen (Tylenol Supp) 650 mg Q4H PRN [place] PAIN OR TEMP ABOVE 38C; Start at 10:00 Acetaminophen (Tylenol Tab) 650 mg Q4H PRN PO PAIN AND OR ELEVATED TEMP; Start 05/29/16 at 10:00 Furosemide (Lasix) 40 mg DAILY IV Last administered on 06/04/16 09:10; Admin Dose 40 MG; Start 06/01/16 at 12:30 Spironolactone (Aldactone) 50 mg DAILY PO ; Start 06/04/16 at 09:00 Citric Acid/ Sodium Citrate (Bicitra) 30 ml TID PO ; Start 06/03/16 at 13:00 MERISSA DURAN Jun 04, 2016 15:18
[2016-06-04] MEDS: LACTULOSE ENEMA 1,000 ML BTL PR SCH ×2 (18:10→23:45)
[2016-06-04 19:44] VITALS: BP 112/56; RESP 16
[2016-06-04] MEDS: TAMSULOSIN (SR) 0.4 MG CAP PO SCH (20:26)
[2016-06-05] MEDS: LACTULOSE ENEMA 1,000 ML BTL PR SCH ×2 (05:54→12:46)
[2016-06-05] MEDS: DEXTROSE 5%-0.9% NACL 1,000 ML IV SCH (06:00)
[2016-06-05] MEDS: LEVOTHYROXINE 25 MCG TAB PO SCH (06:12)
[2016-06-05] MEDS: INSULIN ASPART [NOVOLOG] 3 ML PEN SC SCH ×2 (07:30→11:30)
[2016-06-05 07:52] VITALS: BP 122/59; RESP 18
[2016-06-05] MEDS: FUROSEMIDE 40 MG INJ IV SCH (08:50)
[2016-06-05] MEDS: ALBUMIN HUMAN 25% 50 ML IV SCH (08:50)
[2016-06-05] MEDS: ALLOPURINOL 100 MG TAB PO SCH (09:00)
[2016-06-05] MEDS: PREGABALIN 100 MG CAP PO SCH ×2 (09:00→13:00)
[2016-06-05] MEDS: CITRIC ACID/NA CITRATE 30 ML CUP PO SCH ×2 (09:00→13:00)
[2016-06-05] MEDS: LAMIVUDINE 150 MG TAB PO SCH (09:00)
[2016-06-05] MEDS: SALMETEROL/FLUTICASONE 250/50 INHA INH SCH (09:00)
[2016-06-05] MEDS: FAMOTIDINE 20 MG TAB PO SCH (09:00)
[2016-06-05] MEDS: LUBIPROSTONE 8 MCG CAPSULE PO SCH (09:00)
[2016-06-05] MEDS: SPIRONOLACTONE 50 MG TAB PO SCH (09:00)
--- NOTE | 2016-06-05 09:06 | CONS ---
Date/Time of Note Date/Time of Note DATE: 06/05/16 TIME: 09:05 Assessment/Plan Assessment/Plan Additional Assessment/Plan 1. 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 GI bleeding with severe anemia s/p PRBC tarnsfusion, GI consulted yesterday 2. History of liver cirrhosis secondary to hepatitis C. 3. History of hypertension. 4. History of diabetes mellitus. 5. History of atrial fibrillation. 6. Hypothyroidism. 7. Acute hepatic encephalopathy secondary to high ammonia. 8. Coagulopathy secondary to liver cirrhosis. PLAN: Hb dropped to 5.7 during this stay- s/p PRBC transfusion during this admission, GI Consulted s/p paracentesis 10 L removed on 05/29/16- another paracentesis on 06/02/16- 9.4 L removed BP stable - on lasix 40mg IV daily, resumed his spironolactone at 50mg po daily on bicitra due to metabolic acidosis family agreed for hospice care evaluatoin due to comorbidites, pt is not a candidate for renal replacement therapy will follow up Consultation Date/Type/Reason Admit Date/Time May 22, 2016 at 11:30 Initial Consult Date May Type of Consultation: NEPHROLOGY Referring Provider: ARLETTE MERIDA MD 24 HR Interval Summary Free Text/Dictation pt lethargic today,awaiting hospice care evaluation, BP labile, on lasix and spironolactone Exam/Review of Systems Vital Signs Vitals Vital Signs Date Time Temp Pulse Resp B/P Pulse Ox O2 Delivery O2 Flow Rate FiO2 06/05/16 07:52 97.8 79 18 122/59 99 06/03/16 10:00 Room Air 06/02/16 19:24 2.0 Intake and Output 06/04/16 06/04/16 06/05/16 15:00 23:00 07:00 Intake Total 50 ml 100 ml 960 ml Output Total 400 ml 350 ml Balance 50 ml -300 ml 610 ml Exam GENERAL: alwake but confused HEENT: Pupils equal, round, reactive to light and accommodation. No jaundice. NECK: Supple. HEART: S1, S2. Regular rhythm, no murmur. LUNGS: Decreased breath sounds at the right middle lobe, right lower lobe. No wheezing, no crackles. ABDOMEN: Soft, ascites is present, but nontender EXTREMITIES: 1 to 2+ pitting edema. Results Result Diagram: 06/04/16 0420 06/04/16 0420 Results 24 hrs Laboratory Tests Test 06/04/16 12:17 06/04/16 13:00 06/04/16 13:16 06/04/16 17:45 Bedside Glucose 130 129 Arterial Blood HCO3 15.5 L Arterial Blood Base Excess -7.2 L Arterial Blood Oxygen Saturation 96.0 Dougie Test ACCEPTAB Arterial Blood Gas Puncture Site Left Radial Arterial Blood Carboxyhemoglobin 0.9 Arterial Blood Date Drawn 06/04/2016 2:00:46 PM Arterial Blood Methemoglobin 0.3 Arterial Blood pCO2 (Temp correct) 22.6 L Arterial Blood pH (Temp corrected) 7.453 H Arterial Blood pO2 (Temp corrected) 80.9 Blood Gas A-a O2 Differential 41.8 H Blood Gas Modality ROOM AIR Blood Gas Notified Time 06/04/2016 2:05:16 PM Blood Gas Notified Whom MDA Blood Gas Specimen Source Blood arterial Blood Gas Temperature 37.0 FiO2 21.0 Oxyhemoglobin Percent 94.8 Total Hemoglobin 9.2 L Ammonia 119 #H Test 06/04/16 20:33 06/05/16 07:51 Bedside Glucose 128 115 Medications Medications Current Medications Ondansetron HCl (Zofran Inj) 4 mg Q6H PRN IV NAUSEA AND/OR VOMITING Last administered on 05/31/16 22:01; Admin Dose 4 MG; Start 05/22/16 at 13:30 Acetaminophen/ Hydrocodone Bitart ([place] (5/325)) 1 tab Q6H PRN PO MODERATE PAIN LEVEL 4-6; Start 05/22/16 at 13:30 Magnesium Hydroxide (Milk Of Mag) 30 ml DAILY PRN PO CONSTIPATION; Start at 13:30 Bisacodyl (Dulcolax) 5 mg DAILY PRN PO CONSTIPATION Last administered on 21:11; Admin Dose 5 MG; Start 05/22/16 at 13:30 Hydralazine HCl (Apresoline) 10 mg Q6H PRN IV SBP>160; Start 05/22/16 at 14:00 Lamivudine (Epivir) 150 mg DAILY PO Last administered on 06/03/16 08:48; Admin Dose 150 MG; Start 05/23/16 at 09:00 Lubiprostone (Amitiza) 8 mcg BID PO Last administered on 06/03/16 08:48; Admin Dose 8 MCG; Start 05/22/16 at 21:00 Salmeterol Xinafoate/ Fluticasone (Advair 250/50 Diskus) 1 inh BID INH Last administered on 06/03/16 08:49; Admin Dose 1 INH; Start 05/22/16 at 21:00 Tamsulosin HCl 0.4 mg 0.4 mg HS PO Last administered on 06/02/16 20:20; Admin Dose 0.4 MG; Start 05/22/16 at 21:00 Dextrose/Sodium Chloride (D5-NS) 1,000 ml @ 40 mls/hr Q24H IV Last administered on 06/05/16 06:00; Admin Dose 40 MLS/HR; Start 05/22/16 at 17:00 Miscellaneous Information 1 ea NOTE XX ; Start 05/22/16 at 17:00 Glucose (Glutose) 15 gm Q15M PRN PO DECREASED GLUCOSE; Start 05/22/16 at 17:00 Glucose (Glutose) 22.5 gm Q15M PRN PO DECREASED GLUCOSE; Start 05/22/16 at 17:00 Dextrose (D50w Syringe) 25 ml Q15M PRN IV DECREASED GLUCOSE; Start 05/22/16 at 17:00 Dextrose (D50w Syringe) 50 ml Q15M PRN IV DECREASED GLUCOSE; Start 05/22/16 at 17:00 Glucagon (Glucagen) 1 mg Q15M PRN IM DECREASED GLUCOSE; Start 05/22/16 at 17:00 Glucose (Glutose) 15 gm Q15M PRN BUCCAL DECREASED GLUCOSE; Start 05/22/16 at 17: 00 Pregabalin (Lyrica) 100 mg TID PO Last administered on 06/03/16 08:48; Admin Dose 100 MG; Start 05/24/16 at 13:00 Allopurinol 100 mg 100 mg DAILY PO Last administered on 06/03/16 08:48; Admin Dose 100 MG; Start 05/25/16 at 09:00 Albumin Human (Albumin Human 25%) 50 ml @ 100 mls/hr BID IV Last administered on 06/05/16 08:50; Admin Dose 100 MLS/HR; Start 05/24/16 at 21:30 Lactulose (Enulose) 20 gm Q8 PO Last administered on 06/03/16 05:52; Admin Dose 20 GM; Start 05/25/16 at 22:00; Status Future Hold Famotidine (Pepcid) 20 mg DAILY PO Last administered on 06/03/16 08:49; Admin Dose 20 MG; Start 05/27/16 at 21:00 Acetaminophen (Tylenol Supp) 650 mg Q4H PRN [place] PAIN OR TEMP ABOVE 38C; Start at 10:00 Acetaminophen (Tylenol Tab) 650 mg Q4H PRN PO PAIN AND OR ELEVATED TEMP; Start 05/29/16 at 10:00 Furosemide (Lasix) 40 mg DAILY IV Last administered on 06/05/16 08:50; Admin Dose 40 MG; Start 06/01/16 at 12:30 Spironolactone (Aldactone) 50 mg DAILY PO ; Start 06/04/16 at 09:00 Citric Acid/ Sodium Citrate (Bicitra) 30 ml TID PO ; Start 06/03/16 at 13:00 Lactulose (Lactulose Enema) 100 ml Q6 [place] Last administered on 06/05/16 05:54; Admin Dose 100 ML; Start 06/04/16 at 18:00 SANIA GRAHAM MD Jun 05, 2016 09:06
--- NOTE | 2016-06-05 12:15 | PN ---
Date/Time of Note Date/Time of Note DATE: 06/05/16 TIME: 12:11 Assessment/Plan VTE Prophylaxis VTE Prophylaxis Intervention: SCD's Lines/Catheters IV [facility] Type (from [facility]): Peripheral IV Urinary Cath still in place: Yes Reason Cath still needed: terminal illness/intractable pain Assessment/Plan Chief Complaint/Hosp Course 1. Acute encephalopathy, most probably secondary to hepatic encephalopathy. The patient will be continued on lactulose if he can tolerate oral intake. The patient's brain CT scan was negative for any acute intracranial findings. 2. Paroxysmal atrial fibrillation. Cardiology following. Not a candidate for anticoagulation because of underlying encephalopathy and high risk for falls. 3. Chronic kidney disease. The patient has history of underlying chronic kidney disease. The patient's BUN and creatinine will be monitored closely. Nephrotoxic drugs will be used with caution. Nephrology on the case. 4. Ascites. Status post paracentesis on 05/23/2016, 05/29/2016, and 06/02/2016. 5. Hyperammonemia The patient will be continued on lactulose. The patient's mental status will be monitored closely. 6. Hypothyroidism. The patient's Synthroid will be continued. 7. Macrocytic anemia. Most probably anemia secondary to underlying liver cirrhosis. The patient's hemoglobin and hematocrit will be monitored closely. The patient will be transfused as needed. 8. Coagulopathy, most probably secondary to underlying liver cirrhosis. The patient will be monitored closely for any bleeding. 9. Fluids, electrolytes, and nutrition. Continue maintenance fluid. Continue soft diet if the patient is completely awake and alert. 10. DVT prophylaxis. Bilateral sequential compression devices. 11. Gastrointestinal prophylaxis. Proton pump inhibitors. 12. Plan. Poor prognosis. Family aware of the poor prognosis. The patient continues to remain a DNR. Pending repeat evaluation by hospice. Case discussed with Dr. Edgar. Problems: Subjective 24 Hr Interval Summary Free Text/Dictation The patient remains somnolent. Exam/Review of Systems Vital Signs Vitals Vital Signs Date Time Temp Pulse Resp B/P Pulse Ox O2 Delivery O2 Flow Rate FiO2 06/05/16 07:52 97.8 79 18 122/59 99 06/03/16 10:00 Room Air 06/02/16 19:24 2.0 Intake and Output 06/04/16 06/04/16 06/05/16 15:00 23:00 07:00 Intake Total 50 ml 100 ml 960 ml Output Total 400 ml 350 ml Balance 50 ml -300 ml 610 ml Exam GENERAL: This is an elderly 80-year-old male patient lying in bed in no apparent distress. HEENT: Head normocephalic and atraumatic. Eyes: Anicteric sclerae. Conjunctivae clear. ENT: Nasal septum is midline. Oral mucosa is dry. NECK: Supple. No JVD noticed. RESPIRATORY: Bilateral diminished breath sounds. Agonal breathing. CARDIAC: Regular rhythm with skipped beats. Systolic murmur. ABDOMEN: Distended. Ascites. Bowel sounds hypoactive in all 4 quadrants. GENITOURINARY: Deferred. EXTREMITIES: No cyanosis, no clubbing. Trace bilateral pedal edema. Peripheral pulses palpable. NEUROLOGIC: The patient is Somnolent. Results Result Diagram: 06/04/16 0420 06/04/16 0420 Results 24 hrs Laboratory Tests Test 06/04/16 12:17 06/04/16 13:00 06/04/16 13:16 06/04/16 17:45 Bedside Glucose 130 129 Arterial Blood HCO3 15.5 L Arterial Blood Base Excess -7.2 L Arterial Blood Oxygen Saturation 96.0 Dougie Test ACCEPTAB Arterial Blood Gas Puncture Site Left Radial Arterial Blood Carboxyhemoglobin 0.9 Arterial Blood Date Drawn 06/04/2016 2:00:46 PM Arterial Blood Methemoglobin 0.3 Arterial Blood pCO2 (Temp correct) 22.6 L Arterial Blood pH (Temp corrected) 7.453 H Arterial Blood pO2 (Temp corrected) 80.9 Blood Gas A-a O2 Differential 41.8 H Blood Gas Modality ROOM AIR Blood Gas Notified Time 06/04/2016 2:05:16 PM Blood Gas Notified Whom [facility] Blood Gas Specimen Source Blood arterial Blood Gas Temperature 37.0 FiO2 21.0 Oxyhemoglobin Percent 94.8 Total Hemoglobin 9.2 L Ammonia 119 #H Test 06/04/16 20:33 06/05/16 07:51 06/05/16 11:38 Bedside Glucose 128 115 129 Medications Medications Current Medications Ondansetron HCl (Zofran Inj) 4 mg Q6H PRN IV NAUSEA AND/OR VOMITING Last administered on 05/31/16t 22:01; Admin Dose 4 MG; Start 05/22/16 at 13:30 Acetaminophen/ Hydrocodone Bitart ([place] (5/325)) 1 tab Q6H PRN PO MODERATE PAIN LEVEL 4-6; Start 05/22/16 at 13:30 Magnesium Hydroxide (Milk Of Mag) 30 ml DAILY PRN PO CONSTIPATION; Start at 13:30 Bisacodyl (Dulcolax) 5 mg DAILY PRN PO CONSTIPATION Last administered on 21:11; Admin Dose 5 MG; Start 05/22/16 at 13:30 Hydralazine HCl (Apresoline) 10 mg Q6H PRN IV SBP>160; Start 05/22/16 at 14:00 Lamivudine (Epivir) 150 mg DAILY PO Last administered on 06/03/16 08:48; Admin Dose 150 MG; Start 05/23/16 at 09:00 Lubiprostone (Amitiza) 8 mcg BID PO Last administered on 06/03/16 08:48; Admin Dose 8 MCG; Start 05/22/16 at 21:00 Salmeterol Xinafoate/ Fluticasone (Advair 250/50 Diskus) 1 inh BID INH Last administered on 06/03/16 08:49; Admin Dose 1 INH; Start 05/22/16 at 21:00 Tamsulosin HCl 0.4 mg 0.4 mg HS PO Last administered on 06/02/16 20:20; Admin Dose 0.4 MG; Start 05/22/16 at 21:00 Dextrose/Sodium Chloride (D5-NS) 1,000 ml @ 40 mls/hr Q24H IV Last administered on 06/05/16 06:00; Admin Dose 40 MLS/HR; Start 05/22/16 at 17:00 Miscellaneous Information 1 ea NOTE XX ; Start 05/22/16 at 17:00 Glucose (Glutose) 15 gm Q15M PRN PO DECREASED GLUCOSE; Start 05/22/16 at 17:00 Glucose (Glutose) 22.5 gm Q15M PRN PO DECREASED GLUCOSE; Start 05/22/16 at 17:00 Dextrose (D50w Syringe) 25 ml Q15M PRN IV DECREASED GLUCOSE; Start 05/22/16 at 17:00 Dextrose (D50w Syringe) 50 ml Q15M PRN IV DECREASED GLUCOSE; Start 05/22/16 at 17:00 Glucagon (Glucagen) 1 mg Q15M PRN IM DECREASED GLUCOSE; Start 05/22/16 at 17:00 Glucose (Glutose) 15 gm Q15M PRN BUCCAL DECREASED GLUCOSE; Start 05/22/16 at 17: 00 Pregabalin (Lyrica) 100 mg TID PO Last administered on 06/03/16 08:48; Admin Dose 100 MG; Start 05/24/16 at 13:00 Allopurinol 100 mg 100 mg DAILY PO Last administered on 06/03/16 08:48; Admin Dose 100 MG; Start 05/25/16 at 09:00 Albumin Human (Albumin Human 25%) 50 ml @ 100 mls/hr BID IV Last administered on 06/05/16 08:50; Admin Dose 100 MLS/HR; Start 05/24/16 at 21:30 Lactulose (Enulose) 20 gm Q8 PO Last administered on 06/03/16 05:52; Admin Dose 20 GM; Start 05/25/16 at 22:00; Status Future Hold Famotidine (Pepcid) 20 mg DAILY PO Last administered on 06/03/16 08:49; Admin Dose 20 MG; Start 05/27/16 at 21:00 Acetaminophen (Tylenol Supp) 650 mg Q4H PRN [place] PAIN OR TEMP ABOVE 38C; Start at 10:00 Acetaminophen (Tylenol Tab) 650 mg Q4H PRN PO PAIN AND OR ELEVATED TEMP; Start 05/29/16 at 10:00 Furosemide (Lasix) 40 mg DAILY IV Last administered on 06/05/16 08:50; Admin Dose 40 MG; Start 06/01/16 at 12:30 Spironolactone (Aldactone) 50 mg DAILY PO ; Start 06/04/16 at 09:00 Citric Acid/ Sodium Citrate (Bicitra) 30 ml TID PO ; Start 06/03/16 at 13:00 Lactulose (Lactulose Enema) 100 ml Q6 NE Last administered on 06/05/16 05:54; Admin Dose 100 ML; Start 06/04/16 at 18:00 KATYA PAUL NP Jun 05, 2016 12:15
[2016-06-05 14:41] VITALS: BP 108/54; PULSE 75; RESP 14
[2016-06-05] MEDS ORDERED: morphine LIQ (20 MG/ML PO SYG) SL PRN ×2 (16:30→22:00)
[2016-06-05] MEDS ORDERED: morphine 2 MG INJ IV SCH (16:30)
[2016-06-05] MEDS ORDERED: morphine 2 MG INJ IV PRN (16:30)
[2016-06-05] MEDS ORDERED: NACL 0.9% 3 ML SYG IV PRN (17:30)
[2016-06-05 17:35] VITALS: BP 114/54; PULSE 74
[2016-06-05] MEDS ORDERED: morphine (DRIP) 100 MG/100 ML 100 ML IV SCH (19:30)
[2016-06-05] MEDS ORDERED: PROCHLORPERAZINE 25 MG SUPP PR PRN (19:30)
[2016-06-05] MEDS ORDERED: ATROPINE SULFATE 1% 5ML SL PRN (19:30)
[2016-06-05] MEDS ORDERED: ALBUTEROL/IPRATROPIUM (NEB) 3 ML AMP HHN PRN (19:30)
[2016-06-05] MEDS ORDERED: ACETAMINOPHEN 650 MG SUPP PR PRN (19:30)
[2016-06-05 21:28] VITALS: BP 117/55; RESP 21
[2016-06-05] MEDS ORDERED: morphine LIQ (20 MG/ML PO SYG) SL SCH (22:00)
--- NOTE | 2016-06-06 04:19 | HP ---
DATE OF ADMISSION: 05/22/2016 [facility] 06/05/2016. F2F EVALUATION: LEVEL OF CARE: [facility]. 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 COMORBID CONDITION: Paroxysmal atrial fibrillation, hypothyroidism, hepatic encephalopathy. CHIEF COMPLAINT: History was obtained from medical record and after discussion with the patient's daughter. HISTORY OF PRESENT ILLNESS: The patient is a 80-year-old gentleman with a history of end-stage liver disease secondary to hepatitis B, chronic kidney disease, paroxysmal atrial fibrillation, diabetes, diastolic heart failure was brought into ER because of a fall. The patient was confused and CT of the head revealed no acute intracranial finding. The patient did have lactic acidosis and also had elevated ammonia level. The patient was also coagulopathic with INR of 1.5. The patient was treated with lactulose enema as the patient could not take p.o. lactulose. The patient was empirically started on IV Rocephin. The patient was seen by from GI standpoint, Dr. Tremaine Dhillon from nephrology standpoint and Dr. Andersen from cardiac standpoint; however, the patient continued to decline with no significant p.o. intake; therefore, the patient's family requested hospice evaluation. The patient was seen by hospice today and is being admitted for comfort care. The patient appears short of breath, no recent hematemesis or melena. The patient did have a low grade temperature yesterday. No reported bleeding from any site. REVIEW OF SYSTEMS: Rather limited as the patient was nonverbal. PAST MEDICAL HISTORY: As stated above. The patient apparently got hepatitis B infection from blood transfusion several decades ago when he was in [place]. PAST SURGICAL HISTORY: The patient is status post bilateral lower extremity surgery secondary to an accident, details not available. ALLERGIES: NONE. SOCIAL HISTORY: No smoking, no alcohol. REVIEW OF SYSTEMS: Could not be obtained as the patient was nonverbal. PHYSICAL EXAMINATION: GENERAL: The patient is lethargic with no useful communication. VITAL SIGNS: Temperature 98.1, pulse 74, respirations 14, blood pressure 114/54 , O2 saturation 98% on room air. HEENT: Atraumatic, normocephalic. Conjunctivae and lids normal. Extraocular movements could not be tested. Oropharynx revealed dry oral mucosa. NECK: Supple. No mass, no thyromegaly. CHEST: Revealed diminished air entry at bases. No use of accessory muscles. CARDIOVASCULAR: S1, S2 normal, no murmur. The patient clinically appears to be in sinus rhythm. ABDOMEN: Soft, nontender. EXTREMITIES: Trace edema. NEUROLOGIC: The patient is lethargic and no useful communication possible. LABORATORY DATA: Recent labs revealed WBC 7.1, hemoglobin 8.6, platelet 38. Chemistry: Sodium 145, potassium 4.1, BUN 50, creatinine 1.8. IMPRESSION: 1. 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 2. Paroxysmal atrial fibrillation. 3. History of diabetes. 4. History of diastolic heart failure. 5. Chronic kidney disease. PLAN: The patient will be admitted under [facility] level of hospice care. The patient will be started on IV morphine drip at 1 mg an hour which will be titrated up for comfort care. The patient also will be started on atropine drops for secretion and DuoNeb for chest congestion. The patient's family does not want him to get Ativan. We will continue to optimize comfort care. The plan of care discussed with the patient's daughter and yashas nurse as well as well as nursing staff at [facility]. Will continue to optimize comfort care. Patient is appropriate for hospice. Dictated By: LETTY RAMOS MD AB/NTS Conf#: [id number] DID#: [id number] CC: ARLETTE MERIDA MD; SANIA DHILLON MD;*EndCC* MTDD
--- NOTE | 2016-06-06 05:32 | PN ---
DATE: 06/05/2016 CARDIOLOGY FOLLOWUP SUBJECTIVE: No new cardiac events. Patient does not my questions. MEDICATIONS: Reviewed. PHYSICAL EXAMINATION: VITAL SIGNS: Temperature 97.2, heart rate of 74, blood pressure 117/55, respiratory rate 21. HEENT: Normocephalic, atraumatic. Pupils are equal. CARDIOVASCULAR: Regular rate and rhythm. PULMONARY: No wheezes. GASTROINTESTINAL: Positive for ascites. EXTREMITIES: Trivial edema. NEUROLOGIC: Lethargic. LABORATORY: WBC of 7.1, hemoglobin 8.6, platelets 38. ASSESSMENT AND PLAN: 1. Liver cirrhosis. 2. Hepatic encephalopathy 3. History of arrhythmia, currently stable off all medication. 4. Renal failure. RECOMMENDATIONS: We will continue with the current cardiac care. Follow with GI recommendation. Dictated By: ENID TAYLOR MD AV/WAN Conf#: [id number] DID#: [id number] CC: KATYA PAUL POWER SHOVEL ENGINEER;*EndCC*
[2016-06-06 07:46] VITALS: BP 107/55; RESP 12
--- NOTE | 2016-06-06 12:04 | CONS ---
Date/Time of Note Date/Time of Note DATE: 06/06/16 TIME: 12:04 Assessment/Plan Assessment/Plan Additional Assessment/Plan 1. 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 GI bleeding with severe anemia s/p PRBC tarnsfusion, GI consulted yesterday 2. History of liver cirrhosis secondary to hepatitis C. 3. History of hypertension. 4. History of diabetes mellitus. 5. History of atrial fibrillation. 6. Hypothyroidism. 7. Acute hepatic encephalopathy secondary to high ammonia. 8. Coagulopathy secondary to liver cirrhosis. PLAN: s/p paracentesis 10 L removed on 05/29/16- another paracentesis on 06/02/16- 9.4 L removed BP stable - on lasix 40mg IV daily, resumed his spironolactone at 50mg po daily due to comorbidites, pt is not a candidate for renal replacement therapy no labs today Hospice consulted on the case will follow up Consultation Date/Type/Reason Admit Date/Time May 22, 2016 at 11:30 Initial Consult Date May Type of Consultation: NEPHROLOGY Referring Provider: ARLETTE MERIDA MD 24 HR Interval Summary Free Text/Dictation no acute events, pt lethargic, DNR status Exam/Review of Systems Vital Signs Vitals Vital Signs Date Time Temp Pulse Resp B/P Pulse Ox O2 Delivery O2 Flow Rate FiO2 06/06/16 11:19 99.2 06/06/16 09:50 Nasal Cannula 2.0 06/06/16 07:46 97 12 107/55 94 Intake and Output 06/05/16 06/05/16 06/06/16 15:00 23:00 07:00 Intake Total 50 ml 480 ml 8.5 ml Output Total 900 ml 200 ml Balance 50 ml -420 ml -191.5 ml Exam GENERAL: confused, HEENT: Pupils equal, round, reactive to light and accommodation. No jaundice. NECK: Supple. HEART: S1, S2. Regular rhythm, no murmur. LUNGS: Decreased breath sounds at the right middle lobe, right lower lobe. No wheezing, no crackles. ABDOMEN: Soft, ascites is present, but nontender EXTREMITIES: edema Results Result Diagram: 06/04/1641906/04/16 042 Medications Medications Current Medications Miscellaneous Information 1 ea NOTE XX ; Start 05/22/16 at 17:00 IV Flush (NS 3 ml) 3 ml PRN PRN IV SALINE LOCK FLUSH; Start 06/05/16 at 17:30 IV Flush 10 ml 10 ml Q8 IV Last administered on 06/06/16 06:55; Admin Dose 10 ML; Start 06/05/16 at 22:00 Morphine Sulfate/ Sodium Chloride (morphine) 100 ml @ 1 mls/hr TITRATE IV Last administered on 06/05/16 20:17; Admin Dose 1 MLS/HR; Start 06/05/16 at 19:30 Atropine Sulfate (Atropine Sulfate) 2 drop Q4 PRN SL secretions; Start at 19:30 Prochlorperazine (Compazine Supp) 25 mg Q6H PRN [place] NAUSEA AND/OR VOMITING; Start 06/05/16 at 19:30 Acetaminophen (Tylenol Supp) 500 mg Q6H PRN [place] For temp >100* F Last administered on 06/06/16 09:48; Admin Dose 500 MG; Start 06/05/16 at 19:30 SANIA GRAHAM MD Jun 06, 2016 12:04
--- NOTE | 2016-06-06 20:48 | PN ---
DATE: SUBJECTIVE: Followup on end-stage liver disease and acute kidney injury. The patient did have a fe mica of 100.3, possibly due to aspiration. Patient also has intermittent chest congestion requiring breathing treatment and also was given atropine drops. The patient also received 500 mg of Tylenol rectal suppository for fever. No reported GI bleed. PHYSICAL EXAMINATION: GENERAL: The patient is lethargic and no useful communication possible. VITAL SIGNS: T-max 100.3, pulse 77, respirations are 12, blood pressure 107/55, O2 saturation 94% o n 2 liters nasal cannula. HEENT: No eye discharge or redness. NECK: No mass. CHEST: Revealed intermittent coarse breath sounds. No retractions. CARDIOVASCULAR: Regular rate and rhythm. ABDOMEN: Soft, nontender. EXTREMITIES: Trace edema. NEUROLOGIC: The patient is lethargic and no useful communication was possible. IMPRESSION: 1. 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 2. Acute kidney injury. The patient will be continued on morphine drip at 1 mg an hour which will be titrated up for comfort care. Continue atropine drops for secretion and DuoNeb for chest congest ion. PLAN: I have discussed with nursing staff at [facility] as well as . Will continue to follow. The p atient remains appropriate for [facility] level of care. Dictated By: LETTY BETANCUR/WAN Conf#: [id number] DID#: [id number]
[2016-06-06 21:03] VITALS: BP 119/58; RESP 19
--- NOTE | 2016-06-07 07:30 | PN ---
DATE: 06/06/2016 CARDIOLOGY FOLLOWUP SUBJECTIVE: No new cardiac event. Patient remains nonverbal. MEDICATIONS: Reviewed. PHYSICAL EXAMINATION: VITAL SIGNS: Temperature 97.3, heart rate of 97, blood pressure 107/55, respiratory rate 12. GENERA L: Normocephalic, atraumatic: Lethargic gentleman. Pupils are equal. CARDIOVASCULAR: Regular rate and rhythm. PULMONARY: No wheezes. GASTROINTESTINAL: Soft. EXTREMITIES: Positive trivial edema. NEUROLOGIC: Lethargic. RECOMMENDATIONS: 1. Arrhythmia, currently stable. 2. Renal failure. 3. Liver failure. 4. Paroxysmal atrial fibrillation. The patient has been placed on hospice and comfort care. We will sign off the case. Dictated By: ENID TAYLOR MD AV/NTS Conf#: [id number] DID#: [id number] CC: SANIA GRAHAM MD;*EndCC*
--- NOTE | 2016-06-07 14:24 | DES ---
DATE OF ADMISSION: 05/22/2016 DATE OF : 06/07/2016 CAUSE OF : 1. 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 2. Comorbid condition acute kidney injury. REASON FOR ADMISSION: The patient was a 80-year-old gentleman with history of end-stage liver disea se secondary to hepatitis B, paroxysmal atrial fibrillation, diabetes, diastolic heart failure and h istory of chronic kidney disease was brought into hospital back on 05/22/2016. The patient was diag nosed with hepatic encephalopathy also was treated empirically with IV antibiotic. The patient was seen by Dr. Tremaine Dhillon from nephrology standpoint, Dr. Andersen from cardiac standpoint. The patient co ntinued to decline and family requested hospice care. Patient was admitted under [facility] level of care due to shortness of breath. The patient was started on morphine at 1 mg an hour upon admission and was also given DuoNeb for chest congestion and atropine drops for secretions. The patient remained comfortable on that dose of morphine. The patient cont inues to decline and progressively became more obtunded and there was no p.o. intake. This morning was found to be unresponsive and was pronounced . The patient's family was notified. I met wit h the patient's daughter during patient's admission under [facility] level of care and updated her regardin g plan for comfort care. Dictated By: LETTY BETANCUR/WAN Conf#: [id number] DID#: [id number]
== END 2016-06-07 11:40 | disposition expired | DRG 441 ==
LOC: E/R 09:46 → PP2 11:30 → MS4 16:51 → PP2 05-25 23:13
PROVIDERS: ADMIT Internal Medicine; ATTEND Internal Medicine
PROC: 0W9G3ZZ Drainage of Peritoneal Cavity, Percutaneous Approach (ICD-10-PCS; principal; 2016-05-23)
PROC: 30233P1 Transfusion of Nonautologous Frozen Red Cells into Peripheral Vein, Percutaneous Approach (ICD-10-PCS; 2016-05-28)
PROC: 0W9G3ZZ Drainage of Peritoneal Cavity, Percutaneous Approach (ICD-10-PCS; 2016-05-29)
PROC: 30233N1 Transfusion of Nonautologous Red Blood Cells into Peripheral Vein, Percutaneous Approach (ICD-10-PCS; 2016-05-30)
PROC: 0W9G3ZZ Drainage of Peritoneal Cavity, Percutaneous Approach (ICD-10-PCS; 2016-06-02)
DX: K72.90 Hepatic failure, unspecified without coma (principal); K76.7 Hepatorenal syndrome; R34 Anuria and oliguria; D68.4 Acquired coagulation factor deficiency; R18.8 Other ascites; N17.9 Acute kidney failure, unspecified; E72.20 Disorder of urea cycle metabolism, unspecified; N18.4 Chronic kidney disease, stage 4 (severe); I95.9 Hypotension, unspecified; D69.59 Other secondary thrombocytopenia; B19.10 Unspecified viral hepatitis B without hepatic coma; I48.0 Paroxysmal atrial fibrillation; D64.89 Other specified anemias; E11.9 Type 2 diabetes mellitus without complications; E03.9 Hypothyroidism, unspecified; N18.9 Chronic kidney disease, unspecified; I12.9 Hypertensive chronic kidney disease with stage 1 through stage 4 chronic kidney disease, or unspecified chronic kidney disease; Z66 Do not resuscitate
CPT/HCPCS: 36415; 36430; 36600; 70450; 71010; 74176; 76775; 80048; 80053; 80162; 81003; 82140; 82150; 82270; 82550; 82553; 82570; 82607; 82803; 82945; 82962; 83540; 83605; 83615; 83735; 84100; 84157; 84300; 84439; 84443; 84484; 84560; 85014; 85018; 85025; 85610; 85730; 86644; 86850; 86900; 86901; 86920; 86945; 87040; 87070; 87086; 89050; 89190; 93005; 93306; 96374; J1940; A4310; C9113; J0696; J1815; J2270; J2405; J7040; J7042; P9016; P9035; P9045; P9047